=== PATIENT | male | born 1960 | race Two or more races ===

== ENCOUNTER 2017-09-15 22:36 | Inpatient (IN) | payer BC, OTHER ==
[2017-09-15] MEDS ORDERED: Sodium Chloride 0.9% 1,000 ML ONE (23:06)
[2017-09-15] MEDS ORDERED: Pantoprazole 40 MG Vial IVPUSH ONE (23:12)
[2017-09-15] MEDS ORDERED: Pantoprazole 80 MG in Sodium Chloride 0.9% 100 ML IV SCH (23:15)
[2017-09-15] MEDS ORDERED: Sodium Chloride 0.9% 1,000 ML IV ONE (23:16)
[2017-09-15] MEDS: Pantoprazole 80 MG in Sodium Chloride 0.9% 100 ML IV SCH (23:28)
--- NOTE | 2017-09-15 23:43 | EDM.PDOC ---
ED HPI GENERAL MEDICAL PROBLEM - General Chief Complaint: Abdominal Pain Stated Complaint: STOMACH PAIN URINATING BLOOD WEAK Time Seen by Provider: 09/15/17 22:44 Source of Information: Reports: Patient History Limitations: Reports: No Limitations - History of Present Illness INITIAL COMMENTS - FREE TEXT/NARRATIVE: This is a 56-year-old male. About 3 days ago he developed some upper abdominal pain and noted shortly thereafter he had some black looking stool. He's been having black stools several times a day since that time and today his stool looked more maroonish. He's been feeling very weak and very tired over the last few days and he finally comes to the ER this evening for evaluation. The pain is in the epigastric area of his abdomen. He has been trying some over-the- counter medications and Prilosec but that hasn't been helping. He has no history of ulcers. These never had an upper GI bleed in the past. He has had no recent illnesses no colds no cough no fever no chills. He denies using a lot of anti-inflammatories or aspirin. The patient states he has been nauseated but he has not vomited any blood. The patient has no history of peptic ulcer disease or esophageal varices. He does drink alcohol on a regular basis, usually some shots of vodka. He does take an arthritis medication of the type we do not know when he doesn't remember the name of the medication. - Related Data Allergies Allergy/AdvReac Type Severity Reaction Status Date / Time No Known Allergies Allergy Verified 01/12/17 11:15 Home Meds: Home Meds Omeprazole 1 tab PO DAILY 01/12/17 [History] Past Medical History Gastrointestinal History: Reports: GERD Genitourinary History: Reports: Renal Calculus Psychiatric History: Reports: Anxiety, Depression - Infectious Disease History Infectious Disease History: Reports: Shingles - Past Surgical History GI Surgical History: Reports: Hernia, Abdominal Social & Family History - Tobacco Use Smoking Status *Q: Current Every Day Smoker Years of Tobacco use: 25 Packs/Tins Daily: 0.3 - Caffeine Use Caffeine Use: Reports: Coffee - Recreational Drug Use Recreational Drug Type: Reports: Marijuana/Hashish Other Recreational Drug Type: quit 20 yrs ago ED ROS GENERAL - Review of Systems Review Of Systems: See Below Constitutional: Reports: Weakness, Fatigue. Denies: Fever, Chills HEENT: Reports: No Symptoms Respiratory: Reports: No Symptoms Cardiovascular: Reports: No Symptoms Endocrine: Reports: No Symptoms GI/Abdominal: Reports: Abdominal Pain, Black Stool, Bloody Stool, Nausea. Denies: Vomiting : Reports: No Symptoms Musculoskeletal: Reports: No Symptoms Skin: Reports: No Symptoms Neurological: Reports: No Symptoms Psychiatric: Reports: No Symptoms Hematologic/Lymphatic: Reports: No Symptoms ED EXAM, GI/ABD - Physical Exam Exam: See Below Exam Limited By: No Limitations General Appearance: Alert, WD/WN, No Apparent Distress, Other (Generally he appears to be extremely pale) Eyes: Bilateral: Pale Conjunctiva Ears: Normal External Exam Nose: Normal Inspection Throat/Mouth: Normal Inspection, Normal Oropharynx, Normal Voice, No Airway Compromise, Other (Patient appears to be extremely pale and very pale lips) Head: Normocephalic Neck: Supple Respiratory/Chest: No Respiratory Distress, Lungs Clear, Normal Breath Sounds Cardiovascular: Regular Rate, Rhythm, No Murmur, Tachycardia GI/Abdominal Exam: Soft, Other (Epigastric upper abdominal tenderness on palpation, no masses are noted and there is no lower abdominal tenderness noted , bowel sounds are quiet) Back Exam: Normal Inspection, Full Range of Motion Extremities: Normal Inspection, Normal Range of Motion, Pallor, Other ( Fingernails are extremely pale) Neurological: Alert, Oriented Psychiatric: Normal Affect, Normal Mood Skin Exam: Warm, Dry Course - Vital Signs Last Recorded V/S: Last Vital Signs Temp 98.7 F 09/16/17 00:40 Pulse 96 09/15/17 23:31 Resp 17 09/16/17 00:40 BP 96/51 L 09/16/17 00:40 Pulse Ox 98 09/16/17 00:40 - Orders/Labs/Meds Orders: Active Orders 24 hr Category Date Time Status RED BLOOD CELLS LP [BBK] Stat Lab 09/15/17 22:51 Results TYPE AND SCREEN [BBK] Stat Lab 09/15/17 22:51 Results Pantoprazole [ProTONIX IV] 80 mg Med 09/15/17 23:30 Active Sodium Chloride 0.9% [Normal Saline] 100 ml IV Q10H Sodium Chloride 0.9% [Normal Saline] 1,000 ml Med 09/15/17 23:45 Active IV ASDIRECTED Blood Transfusion Reflex Orders [OM.PC] Routine Oth 09/15/17 23:48 Ordered Peripheral IV Insertion Adult [OM.PC] Urgent Oth 09/15/17 23:48 Ordered Transfuse RBC [Transfuse Red Blood Cells] [COMM] Stat Ot 09/15/17 23:11 Ordered Transfuse Red Blood Cells [COMM] Stat Ot 09/15/17 23:48 Ordered Medication Orders Pantoprazole Sodium 80 mg/ (Sodium Chloride) 100 mls @ 10 mls/hr IV Q10H AMXIMILIANO Last Admin: 09/15/17 23:28 Dose: 10 mls/hr Sodium Chloride (Normal Saline) 1,000 mls @ 125 mls/hr IV ASDIRECTED MAXIMILIANO Last Infusion: 09/15/17 23:51 Dose: 999 mls/hr Admin: 09/15/17 23:50 Dose: 125 mls/hr Labs: Laboratory Tests 09/15/17 09/15/17 09/15/17 Range/Units 22:51 22:51 22:51 WBC 10.21 H (4.23-9.07) K/mm3 RBC 3.00 L (4.63-6.08) M/mm3 Hgb 7.6 L (13.7-17.5) gm/L Hct 24.8 L (40.1-51.0) % MCV 82.7 (79.0-92.2) fl MCH 25.3 L (25.7-32.2) pg MCHC 30.6 L (32.2-35.5) g/dl RDW Std Deviation 46.5 H (35.1-43.9) fL Plt Count 288 (163-337) K/mm3 MPV 10.6 (9.4-12.3) fl Neutrophils % (Manual) 79 H (40-60) % Band Neutrophils % 2 (0-10) % Lymphocytes % (Manual) 14 L (20-40) % Atypical Lymphs % 0 % Monocytes % (Manual) 3 (2-10) % Eosinophils % (Manual) 0 L (0.8-7.0) % Basophils % (Manual) 2 H (0.2-1.2) Platelet Estimate Adequate Plt Morphology Comment See note Polychromasia Few Hypochromasia 1+ slight Poikilocytosis 1+ slight Anisocytosis 1+ slight Ovalocytes Few RBC Morph Comment Not Reportable PT (9.5-12.1) SECONDS INR Sodium 138 (136-145) mEq/L Potassium 4.1 (3.5-5.1) mEq/L Chloride 104 (98-107) mEq/L Carbon Dioxide 20 L (21-32) mEq/L Anion Gap 18.1 H (5-15) BUN 28 H (7-18) mg/dL Creatinine 0.9 (0.7-1.3) mg/dL Est Cr Clr Drug Dosing 82.70 mL/min Estimated GFR (MDRD) > 60 (>60) mL/min BUN/Creatinine Ratio 31.1 H (14-18) Glucose 119 H (74-106) mg/dL Calcium 8.5 (8.5-10.1) mg/dL Total Bilirubin 0.7 (0.2-1.0) mg/dL AST 22 (15-37) U/L ALT 27 (16-63) U/L Alkaline Phosphatase 49 (46-116) U/L Total Protein 5.6 L (6.4-8.2) g/dl Albumin 2.8 L (3.4-5.0) g/dl Globulin 2.8 gm/dL Albumin/Globulin Ratio 1.0 (1-2) Blood Type O POSITIVE Gel Antibody Screen Negative Crossmatch See Detail 09/15/17 Range/Units 22:55 WBC (4.23-9.07) K/mm3 RBC (4.63-6.08) M/mm3 Hgb (13.7-17.5) gm/L Hct (40.1-51.0) % MCV (79.0-92.2) fl MCH (25.7-32.2) pg MCHC (32.2-35.5) g/dl RDW Std Deviation (35.1-43.9) fL Plt Count (163-337) K/mm3 MPV (9.4-12.3) fl Neutrophils % (Manual) (40-60) % Band Neutrophils % (0-10) % Lymphocytes % (Manual) (20-40) % Atypical Lymphs % % Monocytes % (Manual) (2-10) % Eosinophils % (Manual) (0.8-7.0) % Basophils % (Manual) (0.2-1.2) Platelet Estimate Plt Morphology Comment Polychromasia Hypochromasia Poikilocytosis Anisocytosis Ovalocytes RBC Morph Comment PT 10.9 (9.5-12.1) SECONDS INR 1.00 Sodium (136-145) mEq/L Potassium (3.5-5.1) mEq/L Chloride (98-107) mEq/L Carbon Dioxide (21-32) mEq/L Anion Gap (5-15) BUN (7-18) mg/dL Creatinine (0.7-1.3) mg/dL Est Cr Clr Drug Dosing mL/min Estimated GFR (MDRD) (>60) mL/min BUN/Creatinine Ratio (14-18) Glucose (74-106) mg/dL Calcium (8.5-10.1) mg/dL Total Bilirubin (0.2-1.0) mg/dL AST (15-37) U/L ALT (16-63) U/L Alkaline Phosphatase (46-116) U/L Total Protein (6.4-8.2) g/dl Albumin (3.4-5.0) g/dl Globulin gm/dL Albumin/Globulin Ratio (1-2) Blood Type Gel Antibody Screen Crossmatch Meds: Medications Generic Name Dose Route Start Last Admin Trade Name Freq PRN Reason Stop Dose Admin Pantoprazole Sodium 80 mg/ 100 mls @ 10 mls/hr 09/15/17 23:30 09/15/17 23:28 Sodium Chloride IV 10 mls/hr Q10H MAXIMILIANO Administration Sodium Chloride 1,000 mls @ 125 mls/hr 09/15/17 23:45 09/15/17 23:51 Normal Saline IV 999 mls/hr ASDIRECTED MAXIMILIANO Infusion Discontinued Medications Generic Name Dose Route Start Last Admin Trade Name Freq PRN Reason Stop Dose Admin Sodium Chloride Confirm 09/15/17 23:06 09/15/17 23:31 Normal Saline Administered 09/15/17 23:07 Not Given Dose 1,000 mls @ as directed .ROUTE .STK-MED ONE Pantoprazole Sodium 80 mg/ 100 mls @ 10 mls/hr 09/15/17 23:15 Sodium Chloride IV .Continuous MAXIMILIANO Sodium Chloride 1,000 mls @ 999 mls/hr 09/15/17 23:16 09/15/17 23:18 Normal Saline IV 09/16/17 00:16 999 mls/hr ONETIME ONE Administration Pantoprazole Sodium 40 mg 09/15/17 23:12 09/15/17 23:15 Protonix Iv IVPUSH 09/15/17 23:13 40 mg ONETIME ONE Administration - Re-Assessments/Exams Free Text/Narrative Re-Assessment/Exam: 09/16/17 00:02 I spoke to the patient about his upper GI bleed and his hemoglobin of 7.6. He' ll need to stay in the hospital until this resolves. His pulses come down from 107-89 with a fluids and his blood pressure is coming up slowly. I will make sure we don't bring the blood pressure up to high he starts bleeding again. I spoke to Dr. Alcantara regarding the patient and he is willing to follow the patient along in case the patient needs to be scoped as an upper endoscopy. I spoke to Dr. Simons he is willing to admit the patient in the hospital for further evaluation and treatment. 09/16/17 00:13 The patient is feeling slightly better. Looking at up to date it is not advisable to put an NG tube in him unless we believe he is continuing to bleed and then it is used for a diagnostic for the need of upper endoscopy. At this time is blood pressure is rising and his pulse is decreasing suggesting he is normalizing. His platelet count is 288. He did mention to me that he takes an arthritis medication but he isn't sure which one it is. 09/16/17 01:02 The patient is feeling better and we are transfusing the blood at this time. He did receive about a liter of fluids before we started transfusing the blood. 09/16/17 01:45 Patient was admitted to [facility] as per Dr. Simons, bridge orders were written by myself. Departure - Departure Time of Disposition: 01:03 Disposition: Admitted As Inpatient 66 Condition: Fair Clinical Impression: Upper GI bleeding, Nausea, Hypotension due to blood loss, Tachycardia, Severe anemia - Discharge Information ED Communication - ED Communication Date/Time Date: 09/16/17 Time Called: 01:04 - Discussed Case With (1) Discussed Case With (1): Admitting Provider Person/s Notified (1): Paul Simons (He will admit for further evaluation and treatment) Person/s Notified (2): Jesus Alcantara (He will consult) - My Orders Last 24 Hours: My Active Orders 09/15/17 22:51 RED BLOOD CELLS LP [BBK] Stat TYPE AND SCREEN [BBK] Stat 09/15/17 23:11 Transfuse RBC [Transfuse Red Blood Cells] [COMM] Stat 09/15/17 23:30 Pantoprazole [ProTONIX IV] 80 mg Sodium Chloride 0.9% [Normal Saline] 100 ml IV Q10H 09/15/17 23:45 Sodium Chloride 0.9% [Normal Saline] 1,000 ml IV ASDIRECTED 09/15/17 23:48 Blood Transfusion Reflex Orders [OM.PC] Routine Peripheral IV Insertion Adult [OM.PC] Urgent Transfuse Red Blood Cells [COMM] Stat - Assessment/Plan Last 24 Hours: My Active Orders 09/15/17 22:51 RED BLOOD CELLS LP [BBK] Stat TYPE AND SCREEN [BBK] Stat 09/15/17 23:11 Transfuse RBC [Transfuse Red Blood Cells] [COMM] Stat 09/15/17 23:30 Pantoprazole [ProTONIX IV] 80 mg Sodium Chloride 0.9% [Normal Saline] 100 ml IV Q10H 09/15/17 23:45 Sodium Chloride 0.9% [Normal Saline] 1,000 ml IV ASDIRECTED 09/15/17 23:48 Blood Transfusion Reflex Orders [OM.PC] Routine Peripheral IV Insertion Adult [OM.PC] Urgent Transfuse Red Blood Cells [COMM] Stat
[2017-09-15] MEDS ORDERED: Sodium Chloride 0.9% 1,000 ML IV SCH (23:45)
[2017-09-16] MEDS ORDERED: Sodium Chloride 0.9% 1,000 ML IV SCH (05:00)
[2017-09-16] MEDS ORDERED: Metoprolol Tartrate 5 MG/5 ML SDV IVPUSH PRN (06:48)
[2017-09-16] MEDS ORDERED: LORazepam 2 MG/ML SDV IVPUSH PRN (06:48)
[2017-09-16] MEDS ORDERED: hydrALAZINE 20 MG/ML SDV IVPUSH PRN (06:48)
[2017-09-16] MEDS ORDERED: Temazepam 15 MG Cap PO PRN (06:53)
[2017-09-16] MEDS ORDERED: Ondansetron 4 MG/2 ML SDV IV PRN (06:53)
[2017-09-16] MEDS ORDERED: Acetaminophen 325 MG Tab PO PRN (06:53)
[2017-09-16] MEDS ORDERED: Acetaminophen/HYDROcodone 325-5 MG Tab PO PRN (06:53)
[2017-09-16] MEDS ORDERED: LORazepam 2 MG/ML SDV IV PRN (06:53)
[2017-09-16] MEDS ORDERED: Promethazine 12.5 MG in Sodium Chloride 0.9% 50 ML IV PRN (06:53)
[2017-09-16] MEDS ORDERED: Albuterol/Ipratropium 3.0-0.5 MG/3 ML Neb Soln NEB PRN (06:53)
--- NOTE | 2017-09-16 07:02 | PCM.HP ---
H&P History of Present Illness - General Date of Service: 09/16/17 Admit Problem/Dx: Admission Diagnosis/Problem Admission Diagnosis/Problem Gastrointestinal hemorrhage Source of Information: Patient, Family, Provider, RN Notes Reviewed History Limitations: Reports: No Limitations - History of Present Illness Initial Comments - Free Text/Narative: This is a 56 yo male with past medical hx/o GERD, Anxiety, and Depression who comes in for evaluation of 3 day hx/o upper abdominal pain associated with dark- maroon colored stool. He feels weak and very tired over the past few days. He denies family hx/o colorectal cancer. His last EGD was about 4-5 years ago. Patient carries a hx/o gastric ulcer on PPI. He denies being on ASA or any blood thinners. However he admits to taking Advil 3-4 times a day for generalized aches and pain. He also drinks alcohol on a regular basis. His initial work up in ED shows a CBC remarkable for WBC of 10.21, RBC of 3, Hgb of 7.6, Hct of 24.8, MCH of 25.3, MCHC of 30.6, RDW of 46, neutrophils of 79 %, Lymphocytes of 14% and basophils of 2%. His chemistry is remarkable for CO2 of 20, AG of 18.1, BUN of 28, glucose of 119, total protein of 5.6 and albumin of 2.8. 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 He is full code. - Related Data Allergies/Adverse Reactions: Allergies Allergy/AdvReac Type Severity Reaction Status Date / Time No Known Allergies Allergy Verified 09/16/17 03:19 Home Medications: Home Meds Nicotine [Nicotine Patch] 1 patch TD DAILY #30 patch.[id number] 09/17/17 [Rx] Omeprazole 40 mg PO DAILY #56 cap.sr 09/17/17 [Rx] Sucralfate [Carafate] 1 gm PO QID #224 tablet 09/17/17 [Rx] Past Medical History HEENT History: Reports: Impaired Vision, Other (See Below) Other HEENT History: pt states that he wears glasses for reading. Gastrointestinal History: Reports: GERD Genitourinary History: Reports: Renal Calculus Psychiatric History: Reports: Anxiety, Depression Endocrine/Metabolic History: Reports: Obesity/BMI 30+ Hematologic History: Reports: Blood Transfusion(s), Other (See Below) Other Hematologic History: pt currently admitted for gi bleed with a hgb of 7.6 and is receiving 2 units of blood. - Infectious Disease History Infectious Disease History: Reports: Shingles - Past Surgical History GI Surgical History: Reports: Hernia, Abdominal Social & Family History - Family History Family Medical History: Noncontributory - Tobacco Use Smoking Status *Q: Current Every Day Smoker Years of Tobacco use: 25 Packs/Tins Daily: 0.3 Used Tobacco, but Quit: No Second Hand Smoke Exposure: No - Caffeine Use Caffeine Use: Reports: Coffee - Alcohol Use Days Per Week of Alcohol Use: 2 Number of Drinks Per Day: 3 Total Drinks Per Week: 6 - Recreational Drug Use Recreational Drug Use: No Recreational Drug Type: Reports: Marijuana/Hashish Other Recreational Drug Type: quit 20 yrs ago H&P Review of Systems - Review of Systems: Review Of Systems: See Below General: Reports: Weakness, Fatigue. Denies: Fever, Chills, Malaise HEENT: Reports: No Symptoms Pulmonary: Denies: Shortness of Breath Cardiovascular: Denies: Chest Pain, Palpitations, Dyspnea on Exertion, Orthopnea , Lightheadedness, Syncope, Blood Pressure Problem Gastrointestinal: Reports: Abdominal Pain, Bloody Stool, Vomiting. Denies: Nausea Genitourinary: Reports: No Symptoms Musculoskeletal: Reports: No Symptoms Skin: Denies: Cyanosis, Jaundice, Mottled, Pallor, Diaphoresis Psychiatric: Denies: Confusion, Depression, Anxiety, Hallucinations Neurological: Reports: Headache, Weakness. Denies: Dizziness, Syncope, Difficulty Walking Hematologic/Lymphatic: Reports: No Symptoms Immunologic: Reports: No Symptoms Exam - Exam Exam: See Below - Vital Signs Vital Signs: Last Vital Signs Temp 36.7 C 09/16/17 05:21 Pulse 85 09/16/17 05:21 Resp 18 09/16/17 05:21 BP 107/59 L 09/16/17 05:21 Pulse Ox 97 09/16/17 05:21 Weight: 86.273 kg - Exam General: Alert, Oriented, Cooperative. No: Mild Distress HEENT: Conjunctiva Clear, EACs Clear, EOMI, Hearing Intact, Mucosa Moist & [place] , Nares Patent, Normal Nasal Septum, Posterior Pharynx Clear, Pupils Equal, Pupils Reactive Neck: Supple, Trachea Midline, +2 Carotid Pulse wo Bruit, Full Range of Motion Lungs: Clear to Auscultation, Normal Respiratory Effort Cardiovascular: Regular Rate, Regular Rhythm GI/Abdominal Exam: Normal Bowel Sounds, Soft, No Organomegaly, No Distention, No Abnormal Bruit, Tender. No: Guarding, Rigid, Rebound, Hepatomegaly, Splenomegaly (Male) Exam: Deferred Rectal (Males) Exam: Deferred Back Exam: Normal Inspection, Decreased Range of Motion Extremities: Normal Inspection, Normal Range of Motion, Non-Tender, No Pedal Edema, Normal Capillary Refill Peripheral Pulses: 3+: Posterior Tibial (L), Posterior Tibial (R), Dorsalis Pedis (L), Dorsalis Pedis (R) Skin: Warm, Dry, Intact Neuro Extensive - Mental Status: Oriented x3, Normal Cognition, Memory Intact Neuro Extensive - Motor, Sensory, Reflexes: CN II-XII Intact, Normal Gait Psychiatric: Alert, Normal Affect. No: Normal Mood - Patient Data Lab Results Last 24 hrs: Laboratory Results - last 24 hr 09/15/17 09/15/17 09/15/17 Range/Units 22:51 22:51 22:51 WBC 10.21 H (4.23-9.07) K/mm3 RBC 3.00 L (4.63-6.08) M/mm3 Hgb 7.6 L (13.7-17.5) gm/L Hct 24.8 L (40.1-51.0) % MCV 82.7 (79.0-92.2) fl MCH 25.3 L (25.7-32.2) pg MCHC 30.6 L (32.2-35.5) g/dl RDW Std Deviation 46.5 H (35.1-43.9) fL Plt Count 288 (163-337) K/mm3 MPV 10.6 (9.4-12.3) fl Neut % (Auto) (34.0-67.9) % Lymph % (Auto) (21.8-53.1) % Yates % (Auto) (5.3-12.2) % Eos % (Auto) (0.8-7.0) Baso % (Auto) (0.1-1.2) % Neut # (Auto) (1.78-5.38) K/mm3 Lymph # (Auto) (1.32-3.57) K/mm3 Yates # (Auto) (0.30-0.82) K/mm3 Eos # (Auto) (0.04-0.54) K/mm3 Baso # (Auto) (0.01-0.08) K/mm3 Neutrophils % (Manual) 79 H (40-60) % Band Neutrophils % 2 (0-10) % Lymphocytes % (Manual) 14 L (20-40) % Atypical Lymphs % 0 % Monocytes % (Manual) 3 (2-10) % Eosinophils % (Manual) 0 L (0.8-7.0) % Basophils % (Manual) 2 H (0.2-1.2) Platelet Estimate Adequate Plt Morphology Comment See note Polychromasia Few Hypochromasia 1+ slight Poikilocytosis 1+ slight Anisocytosis 1+ slight Ovalocytes Few RBC Morph Comment Not Reportable PT (9.5-12.1) SECONDS INR Sodium 138 (136-145) mEq/L Potassium 4.1 (3.5-5.1) mEq/L Chloride 104 (98-107) mEq/L Carbon Dioxide 20 L (21-32) mEq/L Anion Gap 18.1 H (5-15) BUN 28 H (7-18) mg/dL Creatinine 0.9 (0.7-1.3) mg/dL Est Cr Clr Drug Dosing 82.70 mL/min Estimated GFR (MDRD) > 60 (>60) mL/min BUN/Creatinine Ratio 31.1 H (14-18) Glucose 119 H (74-106) mg/dL Calcium 8.5 (8.5-10.1) mg/dL Total Bilirubin 0.7 (0.2-1.0) mg/dL AST 22 (15-37) U/L ALT 27 (16-63) U/L Alkaline Phosphatase 49 (46-116) U/L Total Protein 5.6 L (6.4-8.2) g/dl Albumin 2.8 L (3.4-5.0) g/dl Globulin 2.8 gm/dL Albumin/Globulin Ratio 1.0 (1-2) Blood Type O POSITIVE Gel Antibody Screen Negative Crossmatch See Detail 09/15/17 09/16/17 Range/Units 22:55 06:20 WBC 6.53 (4.23-9.07) K/mm3 RBC 3.30 L (4.63-6.08) M/mm3 Hgb 8.7 L (13.7-17.5) gm/L Hct 27.4 L (40.1-51.0) % MCV 83.0 (79.0-92.2) fl MCH 26.4 (25.7-32.2) pg MCHC 31.8 L (32.2-35.5) g/dl RDW Std Deviation 46.3 H (35.1-43.9) fL Plt Count 199 (163-337) K/mm3 MPV 10.4 (9.4-12.3) fl Neut % (Auto) 70.9 H (34.0-67.9) % Lymph % (Auto) 18.5 L (21.8-53.1) % Yates % (Auto) 9.0 (5.3-12.2) % Eos % (Auto) 0.8 (0.8-7.0) Baso % (Auto) 0.5 (0.1-1.2) % Neut # (Auto) 4.63 (1.78-5.38) K/mm3 Lymph # (Auto) 1.21 L (1.32-3.57) K/mm3 Yates # (Auto) 0.59 (0.30-0.82) K/mm3 Eos # (Auto) 0.05 (0.04-0.54) K/mm3 Baso # (Auto) 0.03 (0.01-0.08) K/mm3 Neutrophils % (Manual) (40-60) % Band Neutrophils % (0-10) % Lymphocytes % (Manual) (20-40) % Atypical Lymphs % % Monocytes % (Manual) (2-10) % Eosinophils % (Manual) (0.8-7.0) % Basophils % (Manual) (0.2-1.2) Platelet Estimate Plt Morphology Comment Polychromasia Hypochromasia Poikilocytosis Anisocytosis Ovalocytes RBC Morph Comment PT 10.9 (9.5-12.1) SECONDS INR 1.00 Sodium (136-145) mEq/L Potassium (3.5-5.1) mEq/L Chloride (98-107) mEq/L Carbon Dioxide (21-32) mEq/L Anion Gap (5-15) BUN (7-18) mg/dL Creatinine (0.7-1.3) mg/dL Est Cr Clr Drug Dosing mL/min Estimated GFR (MDRD) (>60) mL/min BUN/Creatinine Ratio (14-18) Glucose (74-106) mg/dL Calcium (8.5-10.1) mg/dL Total Bilirubin (0.2-1.0) mg/dL AST (15-37) U/L ALT (16-63) U/L Alkaline Phosphatase (46-116) U/L Total Protein (6.4-8.2) g/dl Albumin (3.4-5.0) g/dl Globulin gm/dL Albumin/Globulin Ratio (1-2) Blood Type Gel Antibody Screen Crossmatch Result Diagrams: 09/17/17 05:32 09/16/17 06:20 Problem List Initiated/Reviewed/Updated: Yes Orders Last 24hrs: Active Orders 24 hr Category Date Time Status Admission Status [Patient Status] [ADT] Routine ADT 09/16/17 00:42 Active Height and Weight [RC] DAILY Care 09/16/17 06:53 Active Intake and Output [RC] QSHIFT Care 09/16/17 06:53 Active Notify Provider Consults [RC] ASDIRECTED Care 09/16/17 06:52 Active Oxygen Therapy [RC] PRN Care 09/16/17 06:53 Active Pulse Oximetry [RC] PRN Care 09/16/17 06:53 Active RT Aerosol Therapy [RC] ASDIRECTED Care 09/16/17 06:55 Active Up With Assistance [RC] ASDIRECTED Care 09/16/17 01:59 Active VTE/DVT Education [RC] PER UNIT ROUTINE Care 09/16/17 06:53 Active Vital Signs [RC] Q4H Care 09/16/17 06:53 Active Consult to Physician [CONS] Routine Cons 09/16/17 06:52 Active NPO Now [Nothing per Oral Now Diet] [DIET] Diet 09/16/17 Breakfast Active BASIC METABOLIC PANEL,BMP [CHEM] Routine Lab 09/16/17 06:20 Received CBC WITH AUTO DIFF [HEME] AM Lab 09/17/17 05:11 Ordered H.PYLORI ANTIGEN, STOOL [OP] Stat Lab 09/16/17 06:56 Ordered MAGNESIUM [CHEM] AM Lab 09/17/17 05:11 Ordered Acetaminophen [Tylenol] Med 09/16/17 06:53 Active 650 mg PO Q4H PRN Acetaminophen/HYDROcodone [Bradford 325-5 MG] Med 09/16/17 06:53 Active 1 tab PO Q4H PRN Albuterol/Ipratropium [DuoNeb 3.0-0.5 MG/3 ML] Med 09/16/17 06:53 Active 3 ml NEB Q4H PRN LORazepam [Ativan] Med 09/16/17 06:53 Active 1 mg IV Q6H PRN LORazepam [Ativan] Med 09/16/17 06:48 Active 2 mg IVPUSH Q4H PRN Magnesium Rep Pharmacy to Dose [Pharmacy to Dose - Med 09/16/17 07:00 Pending Magnesium Replacement] 1 dose .XX ASDIRECTED Metoprolol Tartrate [Lopressor] Med 09/16/17 06:48 Active 5 mg IVPUSH Q4H PRN Ondansetron [Zofran] Med 09/16/17 06:53 Ordered 4 mg IV Q6H PRN Pantoprazole [ProTONIX IV] 80 mg Med 09/15/17 23:30 Active Sodium Chloride 0.9% [Normal Saline] 100 ml IV Q10H Potassium Rep Pharmacy to Dose [Pharmacy to Dose - Med 09/16/17 07:00 Pending Potassium Replacement] 1 dose .XX ASDIRECTED Promethazine [Phenergan] 12.5 mg Med 09/16/17 06:53 Ordered Sodium Chloride 0.9% [Normal Saline] 50 ml IV Q6H Sodium Chloride 0.9% [Normal Saline] 1,000 ml Med 09/16/17 05:00 Active IV ASDIRECTED Temazepam [Restoril] Med 09/16/17 06:53 Ordered 15 mg PO BEDTIME PRN hydrALAZINE [Apresoline] Med 09/16/17 06:48 Active 20 mg IVPUSH Q4H PRN Blood Transfusion Reflex Orders [OM.PC] Routine Oth 09/15/17 23:48 Ordered Peripheral IV Insertion Adult [OM.PC] Urgent Oth 09/15/17 23:48 Ordered Sequential Compression Device [OM.PC] Per Unit Routine Oth 09/16/17 06:54 Ordered Transfuse RBC [Transfuse Red Blood Cells] [COMM] Stat Oth 09/15/17 23:11 Ordered Transfuse Red Blood Cells [COMM] Stat Ot 09/15/17 23:48 Ordered Code Status [Resuscitation Status] Routine Resus Stat 09/16/17 01:57 Ordered Medication Orders Acetaminophen (Tylenol) 650 mg PO Q4H PRN PRN Reason: Pain (Mild 1-3)/fever Hydrocodone Bitart/Acetaminophen (Bradford 325-5 Mg) 1 tab PO Q4H PRN PRN Reason: Pain (moderate 4-6) Albuterol/Ipratropium (Duoneb 3.0-0.5 Mg/3 Ml) 3 ml NEB Q4H PRN PRN Reason: Shortness Of Breath/wheezing Hydralazine HCl (Apresoline) 20 mg IVPUSH Q4H PRN PRN Reason: Hypertension Pantoprazole Sodium 80 mg/ (Sodium Chloride) 100 mls @ 10 mls/hr IV Q10H [facility] Last Admin: 09/15/17 23:28 Dose: 10 mls/hr Sodium Chloride (Normal Saline) 1,000 mls @ 250 mls/hr IV ASDIRECTED [facility] Last Admin: 09/16/17 05:31 Dose: 100 mls/hr Promethazine HCl 12.5 mg/ (Sodium Chloride) 50.5 mls @ 100 mls/hr IV Q6H PRN PRN Reason: Nausea/Vomiting Lorazepam (Ativan) 2 mg IVPUSH Q4H PRN PRN Reason: Seizures Lorazepam (Ativan) 1 mg IV Q6H PRN PRN Reason: Anxiety Magnesium Sulfate (Pharmacy To Dose - Magnesium Replacement) 1 dose .XX ASDIRECTED [facility] Metoprolol Tartrate (Lopressor) 5 mg IVPUSH Q4H PRN PRN Reason: Tachycardia Ondansetron HCl (Zofran) 4 mg IV Q6H PRN PRN Reason: Nausea/Vomiting Potassium Chloride (Pharmacy To Dose - Potassium Replacement) 1 dose .XX ASDIRECTED [facility] Temazepam (Restoril) 15 mg PO BEDTIME PRN PRN Reason: Sleep Assessment/Plan Comment:: Assessment/Plan: Acute: GI Bleed - Likely 2/2 PUD - Carries a hx/o Gastric Ulcer - Risk factors: NSAID and ETOH Use - PPI drip and IVF - S/p 2 units of PRBC transfusion - Hgb 7.6--> now 8.7; will repeat H/H later today - Dr. Alcantara consult Hypotention - 2/2 Volume loss for GI Bleed - Aggressive Volume resuscitation Chronic: GERD Anxiety Depression Plan: Admit to [facility] Routine AM Labs Resume Home Medication Adequate IV Hydration Carafate 1 gram QID Monitor H/H and hemodynamic status Full liquid and then NPO midnight Dr. Alcantara consult for possible EGD Code status: 1
[2017-09-16] MEDS ORDERED: Sodium Chloride 0.9% 1,000 ML IV ONE (07:08)
[2017-09-16] MEDS: Sodium Chloride 0.9% 1,000 ML IV SCH ×4 (08:58→22:17)
--- NOTE | 2017-09-16 09:30 | PCM.CONS ---
H&P History of Present Illness - General Date of Service: 09/16/17 Admit Problem/Dx: Admission Diagnosis/Problem Admission Diagnosis/Problem Gastrointestinal hemorrhage Source of Information: Patient - History of Present Illness Initial Comments - Free Text/Narative: 56-year-old male is 4 years status post an open anti-reflux procedure for refractory gastroesophageal reflux complicated by gastric ulcers. Postoperatively he has chronic gas bloat syndrome with him fully realizing that he can not vomit or belch. Clinically this manifests as abdominal distention which he knows will be relieved by the passage of flatus per rectum. This has been reassuring. About a year ago he underwent a follow-up upper endoscopy by his surgeon and at that time he was found to have gastric ulcers which were smaller than the ones that were previously diagnosed before his operation. He was placed on about 8 weeks of medical management and was asked to follow-up but didn't. He was stable until 4 days ago when he began to experience lightheadedness fatigue weakness palpitations mild shortness of breath, presyncopal symptoms, and occipital headaches. This was associated with increasing epigastric abdominal discomfort. He also noticed that his stool was changing from brown to black. Yesterday during a bowel he had a significant passage of red blood. Because of this he presented to the emergency room and was found to have a hemoglobin of 7. He was admitted for observation and medical management of his acutely symptomatic anemia. He denied dysphagia and recurrent GERD symptoms. He also denied weight loss. His appetite has been fine. His family history is negative for colorectal cancer and polyps. He's never had a colonoscopy. - Related Data Allergies/Adverse Reactions: Allergies Allergy/AdvReac Type Severity Reaction Status Date / Time No Known Allergies Allergy Verified 09/16/17 03:19 Home Medications: Home Meds Omeprazole 1 tab PO DAILY 01/12/17 [History] Past Medical History HEENT History: Reports: Impaired Vision, Other (See Below) Other HEENT History: pt states that he wears glasses for reading. Gastrointestinal History: Reports: GERD Genitourinary History: Reports: Renal Calculus Psychiatric History: Reports: Anxiety, Depression Endocrine/Metabolic History: Reports: Obesity/BMI 30+ Hematologic History: Reports: Blood Transfusion(s), Other (See Below) Other Hematologic History: pt currently admitted for gi bleed with a hgb of 7.6 and is receiving 2 units of blood. - Infectious Disease History Infectious Disease History: Reports: Shingles - Past Surgical History GI Surgical History: Reports: Hernia, Abdominal Social & Family History - Family History Family Medical History: Noncontributory - Tobacco Use Smoking Status *Q: Current Every Day Smoker Years of Tobacco use: 25 Packs/Tins Daily: 0.3 Used Tobacco, but Quit: No Second Hand Smoke Exposure: No - Caffeine Use Caffeine Use: Reports: Coffee - Alcohol Use Days Per Week of Alcohol Use: 2 Number of Drinks Per Day: 3 Total Drinks Per Week: 6 - Recreational Drug Use Recreational Drug Use: No Recreational Drug Type: Reports: Marijuana/Hashish Other Recreational Drug Type: quit 20 yrs ago H&P Review of Systems - Review of Systems: Review Of Systems: ROS reveals no pertinent complaints other than HPI. Exam - Exam Exam: See Below - Vital Signs Vital Signs: Last Vital Signs Temp 37.0 C 09/16/17 08:14 Pulse 82 09/16/17 08:14 Resp 14 09/16/17 08:14 BP 108/65 09/16/17 08:14 Pulse Ox 95 09/16/17 08:14 Weight: 86.273 kg - Exam Quality Assessment: Supplemental Oxygen General: Alert, Oriented, Cooperative HEENT: EOMI, Hearing Intact Neck: Supple, Trachea Midline Lungs: Normal Respiratory Effort, Rhonchi, Wheezing Cardiovascular: Regular Rate, Regular Rhythm, Normal S1, Normal S2 GI/Abdominal Exam: Tender (Mild tenderness in the epigastrium to deep palpation , small lipoma located within the left upper quadrant about 2 cm in diameter), Other (Well-healed midline upper abdominal incision with no incisional hernias appreciated) (Male) Exam: Deferred Rectal (Males) Exam: Deferred Extremities: Non-Tender Skin: Warm, Dry, Intact Neuro Extensive - Mental Status: Alert, Oriented x3, Normal Mood/Affect, Normal Cognition, Memory Intact Psychiatric: Alert, Normal Affect, Normal Mood - Patient Data Lab Results Last 24 hrs: Laboratory Results - last 24 hr 09/15/17 09/15/17 09/15/17 Range/Units 22:51 22:51 22:51 WBC 10.21 H (4.23-9.07) K/mm3 RBC 3.00 L (4.63-6.08) M/mm3 Hgb 7.6 L (13.7-17.5) gm/L Hct 24.8 L (40.1-51.0) % MCV 82.7 (79.0-92.2) fl MCH 25.3 L (25.7-32.2) pg MCHC 30.6 L (32.2-35.5) g/dl RDW Std Deviation 46.5 H (35.1-43.9) fL Plt Count 288 (163-337) K/mm3 MPV 10.6 (9.4-12.3) fl Neut % (Auto) (34.0-67.9) % Lymph % (Auto) (21.8-53.1) % [place] % (Auto) (5.3-12.2) % Eos % (Auto) (0.8-7.0) Baso % (Auto) (0.1-1.2) % Neut # (Auto) (1.78-5.38) K/mm3 Lymph # (Auto) (1.32-3.57) K/mm3 [place] # (Auto) (0.30-0.82) K/mm3 Eos # (Auto) (0.04-0.54) K/mm3 Baso # (Auto) (0.01-0.08) K/mm3 Neutrophils % (Manual) 79 H (40-60) % Band Neutrophils % 2 (0-10) % Lymphocytes % (Manual) 14 L (20-40) % Atypical Lymphs % 0 % Monocytes % (Manual) 3 (2-10) % Eosinophils % (Manual) 0 L (0.8-7.0) % Basophils % (Manual) 2 H (0.2-1.2) Platelet Estimate Adequate Plt Morphology Comment See note Polychromasia Few Hypochromasia 1+ slight Poikilocytosis 1+ slight Anisocytosis 1+ slight Ovalocytes Few RBC Morph Comment Not Reportable PT (9.5-12.1) SECONDS INR Sodium 138 (136-145) mEq/L Potassium 4.1 (3.5-5.1) mEq/L Chloride 104 (98-107) mEq/L Carbon Dioxide 20 L (21-32) mEq/L Anion Gap 18.1 H (5-15) BUN 28 H (7-18) mg/dL Creatinine 0.9 (0.7-1.3) mg/dL Est Cr Clr Drug Dosing 82.70 mL/min Estimated GFR (MDRD) > 60 (>60) mL/min BUN/Creatinine Ratio 31.1 H (14-18) Glucose 119 H (74-106) mg/dL Calcium 8.5 (8.5-10.1) mg/dL Iron (65-175) ug/dL TIBC (100-400) ug/dL % Saturation (20-55) % Transferrin (202-364) mg/dL Total Bilirubin 0.7 (0.2-1.0) mg/dL AST 22 (15-37) U/L ALT 27 (16-63) U/L Alkaline Phosphatase 49 (46-116) U/L Total Protein 5.6 L (6.4-8.2) g/dl Albumin 2.8 L (3.4-5.0) g/dl Globulin 2.8 gm/dL Albumin/Globulin Ratio 1.0 (1-2) Blood Type O POSITIVE Gel Antibody Screen Negative Crossmatch See Detail 09/15/17 09/16/17 09/16/17 Range/Units 22:55 06:20 06:20 WBC 6.53 (4.23-9.07) K/mm3 RBC 3.30 L (4.63-6.08) M/mm3 Hgb 8.7 L (13.7-17.5) gm/L Hct 27.4 L (40.1-51.0) % MCV 83.0 (79.0-92.2) fl MCH 26.4 (25.7-32.2) pg MCHC 31.8 L (32.2-35.5) g/dl RDW Std Deviation 46.3 H (35.1-43.9) fL Plt Count 199 (163-337) K/mm3 MPV 10.4 (9.4-12.3) fl Neut % (Auto) 70.9 H (34.0-67.9) % Lymph % (Auto) 18.5 L (21.8-53.1) % [place] % (Auto) 9.0 (5.3-12.2) % Eos % (Auto) 0.8 (0.8-7.0) Baso % (Auto) 0.5 (0.1-1.2) % Neut # (Auto) 4.63 (1.78-5.38) K/mm3 Lymph # (Auto) 1.21 L (1.32-3.57) K/mm3 [place] # (Auto) 0.59 (0.30-0.82) K/mm3 Eos # (Auto) 0.05 (0.04-0.54) K/mm3 Baso # (Auto) 0.03 (0.01-0.08) K/mm3 Neutrophils % (Manual) (40-60) % Band Neutrophils % (0-10) % Lymphocytes % (Manual) (20-40) % Atypical Lymphs % % Monocytes % (Manual) (2-10) % Eosinophils % (Manual) (0.8-7.0) % Basophils % (Manual) (0.2-1.2) Platelet Estimate Plt Morphology Comment Polychromasia Hypochromasia Poikilocytosis Anisocytosis Ovalocytes RBC Morph Comment PT 10.9 (9.5-12.1) SECONDS INR 1.00 Sodium 140 (136-145) mEq/L Potassium 4.2 (3.5-5.1) mEq/L Chloride 108 H (98-107) mEq/L Carbon Dioxide 24 (21-32) mEq/L Anion Gap 12.2 (5-15) BUN 26 H (7-18) mg/dL Creatinine 0.7 (0.7-1.3) mg/dL Est Cr Clr Drug Dosing 106.33 mL/min Estimated GFR (MDRD) > 60 (>60) mL/min BUN/Creatinine Ratio 37.1 H (14-18) Glucose 99 (74-106) mg/dL Calcium 8.0 L (8.5-10.1) mg/dL Iron (65-175) ug/dL TIBC (100-400) ug/dL % Saturation (20-55) % Transferrin (202-364) mg/dL Total Bilirubin (0.2-1.0) mg/dL AST (15-37) U/L ALT (16-63) U/L Alkaline Phosphatase (46-116) U/L Total Protein (6.4-8.2) g/dl Albumin (3.4-5.0) g/dl Globulin gm/dL Albumin/Globulin Ratio (1-2) Blood Type Gel Antibody Screen Crossmatch 09/16/17 Range/Units 06:20 WBC (4.23-9.07) K/mm3 RBC (4.63-6.08) M/mm3 Hgb (13.7-17.5) gm/L Hct (40.1-51.0) % MCV (79.0-92.2) fl MCH (25.7-32.2) pg MCHC (32.2-35.5) g/dl RDW Std Deviation (35.1-43.9) fL Plt Count (163-337) K/mm3 MPV (9.4-12.3) fl Neut % (Auto) (34.0-67.9) % Lymph % (Auto) (21.8-53.1) % [place] % (Auto) (5.3-12.2) % Eos % (Auto) (0.8-7.0) Baso % (Auto) (0.1-1.2) % Neut # (Auto) (1.78-5.38) K/mm3 Lymph # (Auto) (1.32-3.57) K/mm3 [place] # (Auto) (0.30-0.82) K/mm3 Eos # (Auto) (0.04-0.54) K/mm3 Baso # (Auto) (0.01-0.08) K/mm3 Neutrophils % (Manual) (40-60) % Band Neutrophils % (0-10) % Lymphocytes % (Manual) (20-40) % Atypical Lymphs % % Monocytes % (Manual) (2-10) % Eosinophils % (Manual) (0.8-7.0) % Basophils % (Manual) (0.2-1.2) Platelet Estimate Plt Morphology Comment Polychromasia Hypochromasia Poikilocytosis Anisocytosis Ovalocytes RBC Morph Comment PT (9.5-12.1) SECONDS INR Sodium (136-145) mEq/L Potassium (3.5-5.1) mEq/L Chloride (98-107) mEq/L Carbon Dioxide (21-32) mEq/L Anion Gap (5-15) BUN (7-18) mg/dL Creatinine (0.7-1.3) mg/dL Est Cr Clr Drug Dosing mL/min Estimated GFR (MDRD) (>60) mL/min BUN/Creatinine Ratio (14-18) Glucose (74-106) mg/dL Calcium (8.5-10.1) mg/dL Iron 307 H (65-175) ug/dL TIBC 300 (100-400) ug/dL % Saturation 102 H (20-55) % Transferrin 240 (202-364) mg/dL Total Bilirubin (0.2-1.0) mg/dL AST (15-37) U/L ALT (16-63) U/L Alkaline Phosphatase (46-116) U/L Total Protein (6.4-8.2) g/dl Albumin (3.4-5.0) g/dl Globulin gm/dL Albumin/Globulin Ratio (1-2) Blood Type Gel Antibody Screen Crossmatch Result Diagrams: 09/16/17 06:20 09/16/17 06:20 Consult PN Assessment/Plan Procedures: Procedures ANTINUCLEAR ANTIBODIES (01/10/17) ASSAY OF FERRITIN (01/10/17) ASSAY OF IRON (02/21/17) ASSAY OF TRANSFERRIN (01/10/17) BLOOD TYPING SEROLOGIC ABO (01/12/17) BLOOD TYPING SEROLOGIC RH(D) (01/12/17) C-REACTIVE PROTEIN (01/10/17) CCP ANTIBODY (01/10/17) COMPATIBILITY TEST ANTIGLOB (01/12/17) COMPLETE CBC AUTOMATED (02/21/17) COMPLETE CBC W/AUTO DIFF WBC (02/02/17) COMPREHEN METABOLIC PANEL (01/10/17) HELICOBACTER PYLORI ANTIBODY (01/10/17) MRI LUMBAR SPINE W/O DYE (12/20/16) RBC ANTIBODY SCREEN (01/12/17) RBC SED RATE AUTOMATED (01/10/17) RHEUMATOID FACTOR TEST QUAL (01/10/17) ROUTINE VENIPUNCTURE (02/21/17) X-RAY BEND ONLY L-S SPINE (02/21/17) X-RAY EXAM OF FINGER(S) (02/21/17) X-RAY EXAM OF FOREARM (07/02/17) X-RAY EXAM OF KNEE 3 (08/28/13) X-RAY EXAM OF PELVIS (02/21/17) X-RAY EXAM OF WRIST (05/25/17) (1) Severe anemia SNOMED Code(s): 225053429 Code(s): D64.9 - ANEMIA, UNSPECIFIED Priority: High Current Visit: Yes Assessment:: Etiology is unclear but may be related to peptic change. His gas bloat syndrome is relatively stable and frequently this is managed by dilatation and this can be done by the operating surgeon at an appointment in the future. He will need a screening colonoscopy and this can be done as an outpatient as well. In the meantime I agree with current medical stabilization. He needs a diagnostic esophagogastroduodenoscopy this admission. Problem List Initiated/Reviewed/Updated: Yes Plan: Esophagogastroduodenoscopy tomorrow. The patient is familiar with the procedure its benefits its risks and alternatives and he wants to proceed after having all of his questions answered.
[2017-09-16] MEDS: Pantoprazole 80 MG in Sodium Chloride 0.9% 100 ML IV SCH ×2 (10:02→20:13)
--- NOTE | 2017-09-16 21:04 | PCM.SN ---
- Free Text/Narrative Note: His repeat hemoglobin and hematocrit are 7.4 and 22.3 respectively. Patient appears to be still having slow bleed. We will go ahead and transfuse 1 unit of packed RBC. He is scheduled for EGD tomorrow. He remained stable without any complaints.
[2017-09-17] MEDS: Sodium Chloride 0.9% 1,000 ML IV SCH ×2 (06:44→11:48)
[2017-09-17] MEDS: Pantoprazole 80 MG in Sodium Chloride 0.9% 100 ML IV SCH (08:07)
[2017-09-17] MEDS ORDERED: Pantoprazole 40 MG Vial IV SCH (09:00)
[2017-09-17] MEDS ORDERED: Magnesium Oxide 400 MG Tab PO ONE (09:00)
[2017-09-17] MEDS: Sucralfate 1 GM Tab PO SCH ×2 (09:21→10:59)
[2017-09-17] MEDS ORDERED: Magnesium Sulfate/Water 2 GM in Premix Bag 1 BAG IV ONE (09:22)
--- NOTE | 2017-09-17 09:25 | PCM.PREANE ---
Preanesthetic Assessment - Procedure Proposed Procedure: egd - Anesthesia/Transfusion/Family Hx Anesthesia History: Prior Anesthesia Without Reaction Family History of Anesthesia Reaction: No Transfusion History: Prior Transfusion Without Reaction - Review of Systems General: Weakness, Fatigue, Malaise (hgb) Pulmonary: No Symptoms Cardiovascular: No Symptoms Gastrointestinal: No Symptoms, Diarrhea (bloody stools) Neurological: No Symptoms Other: Reports: Liver Problems (3 years ago it swelled from meds) - Physical Assessment NPO Status Date: 09/16/17 NPO Status Time: 22:00 Pulse: 68 O2 Sat by Pulse Oximetry: 96 Respiratory Rate: 16 Blood Pressure: 103/83 Temperature: 97.9 F Vital Signs: Last Vital Signs Temp 97.9 F 09/17/17 06:24 Pulse 68 09/17/17 06:24 Resp 16 09/17/17 06:24 BP 103/83 09/17/17 06:24 Pulse Ox 96 09/17/17 06:53 Height: 5 ft 6 in Weight: 88.042 kg ASA Class: 2 Mental Status: Alert & Oriented x3 Airway Class: Mallampati = 2 Dentition: Reports: Normal Dentition Thyro-Mental Finger Breadths: 3 Mouth Opening Finger Breadths: 3 ROM/Head Extension: Full Lungs: Normal Respiratory Effort, Wheezing (insp and exp wheezing on left) Cardiovascular: Regular Rate, Regular Rhythm - Lab Values: Laboratory Last Values WBC 5.99 K/mm3 (4.23-9.07) 09/17/17 05:32 RBC 3.54 M/mm3 (4.63-6.08) L 09/17/17 05:32 Hgb 9.5 gm/L (13.7-17.5) L 09/17/17 05:32 Hct 29.4 % (40.1-51.0) L 09/17/17 05:32 MCV 83.1 fl (79.0-92.2) 09/17/17 05:32 MCH 26.8 pg (25.7-32.2) 09/17/17 05:32 MCHC 32.3 g/dl (32.2-35.5) 09/17/17 05:32 RDW Std Deviation 45.6 fL (35.1-43.9) H 09/17/17 05:32 Plt Count 193 K/mm3 (163-337) 09/17/17 05:32 MPV 10.7 fl (9.4-12.3) 09/17/17 05:32 Neut % (Auto) 67.9 % (34.0-67.9) 09/17/17 05:32 Lymph % (Auto) 20.9 % (21.8-53.1) L 09/17/17 05:32 [place] % (Auto) 8.7 % (5.3-12.2) 09/17/17 05:32 Eos % (Auto) 1.8 (0.8-7.0) 09/17/17 05:32 Baso % (Auto) 0.5 % (0.1-1.2) 09/17/17 05:32 Neut # (Auto) 4.07 K/mm3 (1.78-5.38) 09/17/17 05:32 Lymph # (Auto) 1.25 K/mm3 (1.32-3.57) L 09/17/17 05:32 [place] # (Auto) 0.52 K/mm3 (0.30-0.82) 09/17/17 05:32 Eos # (Auto) 0.11 K/mm3 (0.04-0.54) 09/17/17 05:32 Baso # (Auto) 0.03 K/mm3 (0.01-0.08) 09/17/17 05:32 Neutrophils % (Manual) 79 % (40-60) H 09/15/17 22:51 Band Neutrophils % 2 % (0-10) 09/15/17 22:51 Lymphocytes % (Manual) 14 % (20-40) L 09/15/17 22:51 Atypical Lymphs % 0 % 09/15/17 22:51 Monocytes % (Manual) 3 % (2-10) 09/15/17 22:51 Eosinophils % (Manual) 0 % (0.8-7.0) L 09/15/17 22:51 Basophils % (Manual) 2 (0.2-1.2) H 09/15/17 22:51 Platelet Estimate Adequate 09/15/17 22:51 Plt Morphology Comment See note 09/15/17 22:51 Polychromasia Few 09/15/17 22:51 Hypochromasia 1+ slight 09/15/17 22:51 Poikilocytosis 1+ slight 09/15/17 22:51 Anisocytosis 1+ slight 09/15/17 22:51 Ovalocytes Few 09/15/17 22:51 RBC Morph Comment Not Reportable 09/15/17 22:51 PT 10.9 SECONDS (9.5-12.1) 09/15/17 22:55 INR 1.00 09/15/17 22:55 Sodium 140 mEq/L (136-145) 09/16/17 06:20 Potassium 4.2 mEq/L (3.5-5.1) 09/16/17 06:20 Chloride 108 mEq/L (98-107) H 09/16/17 06:20 Carbon Dioxide 24 mEq/L (21-32) 09/16/17 06:20 Anion Gap 12.2 (5-15) 09/16/17 06:20 BUN 26 mg/dL (7-18) H 09/16/17 06:20 Creatinine 0.7 mg/dL (0.7-1.3) 09/16/17 06:20 Est Cr Clr Drug Dosing 106.33 mL/min 09/16/17 06:20 Estimated GFR (MDRD) > 60 mL/min (>60) 09/16/17 06:20 BUN/Creatinine Ratio 37.1 (14-18) H 09/16/17 06:20 Glucose 99 mg/dL (74-106) 09/16/17 06:20 Calcium 8.0 mg/dL (8.5-10.1) L 09/16/17 06:20 Magnesium 1.6 mg/dl (1.8-2.4) L 09/17/17 05:32 Iron 307 ug/dL (65-175) H 09/16/17 06:20 TIBC 300 ug/dL (100-400) 09/16/17 06:20 % Saturation 102 % (20-55) H 09/16/17 06:20 Transferrin 240 mg/dL (202-364) 09/16/17 06:20 Total Bilirubin 0.7 mg/dL (0.2-1.0) 09/15/17 22:51 AST 22 U/L (15-37) 09/15/17 22:51 ALT 27 U/L (16-63) 09/15/17 22:51 Alkaline Phosphatase 49 U/L (46-116) 09/15/17 22:51 Total Protein 5.6 g/dl (6.4-8.2) L 09/15/17 22:51 Albumin 2.8 g/dl (3.4-5.0) L 09/15/17 22:51 Globulin 2.8 gm/dL 09/15/17 22:51 Albumin/Globulin Ratio 1.0 (1-2) 09/15/17 22:51 Blood Type O POSITIVE 09/15/17 22:51 Gel Antibody Screen Negative 09/15/17 22:51 Crossmatch See Detail 09/15/17 22:51 - Allergies Allergies/Adverse Reactions: Allergies Allergy/AdvReac Type Severity Reaction Status Date / Time No Known Allergies Allergy Verified 09/16/17 03:19 - Acknowledgements Anesthesia Type Planned: MAC Pt an Appropriate Candidate for the Planned Anesthesia: Yes Alternatives and Risks of Anesthesia Discussed w Pt/Guardian: Yes Pt/Guardian Understands and Agrees with Anesthesia Plan: Yes PreAnesthesia Questionnaire HEENT History: Reports: Impaired Vision, Other (See Below) Other HEENT History: pt states that he wears glasses for reading. Cardiovascular History: Reports: None Respiratory History: Reports: None Gastrointestinal History: Reports: GERD Genitourinary History: Reports: Renal Calculus Musculoskeletal History: Reports: Arthritis Psychiatric History: Reports: Addiction (ETOH), Depression Endocrine/Metabolic History: Reports: Obesity/BMI 30+ Hematologic History: Reports: Blood Transfusion(s), Other (See Below) Other Hematologic History: pt currently admitted for gi bleed with a hgb of 7.6 and is receiving 2 units of blood. Oncologic (Cancer) History: Reports: None - Infectious Disease History Infectious Disease History: Reports: Shingles - Past Surgical History GI Surgical History: Reports: Hernia, Abdominal - History Comment History Comment: takes pill for arthritis every day but doesn't remember name of it- rx - SUBSTANCE USE Smoking Status *Q: Current Every Day Smoker Tobacco Use Within Last Twelve Months: Cigarettes Second Hand Smoke Exposure: Yes Days Per Week of Alcohol Use: 7 (vodka) Number of Drinks Per Day: 2 Total Drinks Per Week: 14 Recreational Drug Use History: No - HOME MEDS Home Medications: Home Meds Omeprazole 1 tab PO DAILY 01/12/17 [History] - CURRENT (IN HOUSE) MEDS Current Meds: Current Medications Acetaminophen (Tylenol) 650 mg PO Q4H PRN PRN Reason: Pain (Mild 1-3)/fever Hydrocodone Bitart/Acetaminophen ([place] 325-5 Mg) 1 tab PO Q4H PRN PRN Reason: Pain (moderate 4-6) Last Admin: 09/16/17 20:23 Dose: 1 tab Albuterol/Ipratropium (Duoneb 3.0-0.5 Mg/3 Ml) 3 ml NEB Q4H PRN PRN Reason: Shortness Of Breath/wheezing Hydralazine HCl (Apresoline) 20 mg IVPUSH Q4H PRN PRN Reason: Hypertension Promethazine HCl 12.5 mg/ (Sodium Chloride) 50.5 mls @ 100 mls/hr IV Q6H PRN PRN Reason: Nausea/Vomiting Sodium Chloride (Normal Saline) 1,000 mls @ 200 mls/hr IV ASDIRECTED [facility] Last Admin: 09/17/17 06:44 Dose: 200 mls/hr Lorazepam (Ativan) 2 mg IVPUSH Q4H PRN PRN Reason: Seizures Lorazepam (Ativan) 1 mg IV Q6H PRN PRN Reason: Anxiety Magnesium Sulfate (Pharmacy To Dose - Magnesium Replacement) 1 dose .XX ASDIRECTED [facility] Metoprolol Tartrate (Lopressor) 5 mg IVPUSH Q4H PRN PRN Reason: Tachycardia Ondansetron HCl (Zofran) 4 mg IV Q6H PRN PRN Reason: Nausea/Vomiting Pantoprazole Sodium (Protonix Iv) 40 mg IV BID [facility] Last Admin: 09/17/17 08:22 Dose: 40 mg Potassium Chloride (Pharmacy To Dose - Potassium Replacement) 1 dose .XX ASDIRECTED [facility] Sucralfate (Carafate) 1 gm PO QIDACANDBED [facility] Temazepam (Restoril) 15 mg PO BEDTIME PRN PRN Reason: Sleep Discontinued Medications Sodium Chloride (Normal Saline) Confirm Administered Dose 1,000 mls @ as directed .ROUTE .STK-MED ONE Stop: 09/15/17 23:07 Last Admin: 09/15/17 23:31 Dose: Not Given Pantoprazole Sodium 80 mg/ (Sodium Chloride) 100 mls @ 10 mls/hr IV .Continuous [facility] Sodium Chloride (Normal Saline) 1,000 mls @ 999 mls/hr IV ONETIME ONE Stop: 09/16/17 00:16 Last Admin: 09/15/17 23:18 Dose: 999 mls/hr Pantoprazole Sodium 80 mg/ (Sodium Chloride) 100 mls @ 10 mls/hr IV Q10H [facility] Last Admin: 09/17/17 08:07 Dose: Not Given Sodium Chloride (Normal Saline) 1,000 mls @ 125 mls/hr IV ASDIRECTED [facility] Last Infusion: 09/15/17 23:51 Dose: 999 mls/hr Sodium Chloride (Normal Saline) 1,000 mls @ 250 mls/hr IV ASDIRECTED [facility] Last Admin: 09/16/17 05:31 Dose: 100 mls/hr Sodium Chloride (Normal Saline) 1,000 mls @ 999 mls/hr IV ONETIME ONE Stop: 09/16/17 08:08 Last Admin: 09/16/17 07:57 Dose: 999 mls/hr Magnesium Oxide (Magnesium Oxide) 800 mg PO ONETIME ONE Stop: 09/17/17 09:01 Pantoprazole Sodium (Protonix Iv) 40 mg IVPUSH ONETIME ONE Stop: 09/15/17 23:13 Last Admin: 09/15/17 23:15 Dose: 40 mg
[2017-09-17] MEDS ORDERED: Albuterol 0.083% 2.5 MG/3 ML Neb Soln NEB ONE (09:28)
[2017-09-17] MEDS ORDERED: Propofol 200 MG/20 ML SDV ONE (10:32)
[2017-09-17] MEDS ORDERED: fentaNYL 100 MCG/2 ML SDV ONE (10:32)
[2017-09-17] MEDS ORDERED: Lidocaine 1% 6 ML ONE (10:32)
[2017-09-17 13:02] VITALS: BP 101/50
--- NOTE | 2017-09-17 13:02 | PCM48HPAN ---
Post Anesthesia Note - EVALUATION WITHIN 48HRS OF ANESTHETIC Vital Signs in Normal Range: Yes Patient Participated in Evaluation: Yes Respiratory Function Stable: Yes Airway Patent: Yes Cardiovascular Function Stable: Yes Hydration Status Stable: Yes Pain Control Satisfactory: Yes Nausea and Vomiting Control Satisfactory: Yes Mental Status Recovered: Yes Pulse Rate: 71 SaO2: 95 Resp Rate: 23 Blood Pressure: 101/50 Pulse Rate: 71 - COMMENTS/OBSERVATIONS Free Text/Narrative:: Patient awake alert and conversating well with staff.
--- NOTE | 2017-09-17 13:18 | PCM.OPNOTE ---
- General Post-Op/Procedure Note Date of Surgery/Procedure: 09/17/17 Operative Procedure(s): Esophagogastroduodenoscopy with forceps biopsy of gastric ulcer Findings: Shallow gastric ulcer with heavy exudate in the crater high on the greater curve with no visible vessel and no blood within the lumen. The lesion is approximately 1-1/2 cm in diameter. There was no duodenal ulcer component. Pre Op Diagnosis: Upper GI bleed Post-Op Diagnosis: Gastric ulcer Anesthesia Technique: MAC, Moderate Sedation Primary Surgeon: Jesus Alcantara Pathology: Biopsy of gastric ulcer EBL in mLs: 0 Complications: None Condition: Good Free Text/Narrative:: Intake & Output 09/16/17 09/17/17 09/17/17 22:59 06:59 14:59 Intake Total 3060 2444 Output Total 800 Balance 2260 2444 After adequate IV sedation and analgesia was obtained with monitoring the patient was placed on his left side. Through a bite-block lubricated upper endoscope was inserted into the esophagus then advanced under direct vision to reach the stomach. There was some distortion of the anatomy because of the previous antireflux procedure. There was no luminal blood within the body of the stomach. I advanced the scope towards the antrum and then into the pylorus to the distal aspect of the second part of the duodenum. The second and first parts were endoscopically normal with no ulcers or mass lesions seen. There was some minor scope trauma in the distal first part of duodenum. I then withdrew the scope to the antral area which was endoscopically normal. In the retroflexed view the ulcer which was defined above was seen and not bleeding. I took one biopsy of the ulcer age for histopathologic evaluation. The hiatal hernia repair was also observed. The body of the stomach was grossly normal with normal rugal folds. The scope was then withdrawn to the GE junction which was sharp and had no ulcers or chronic inflammatory changes. The body of the esophagus was unremarkable. Air was removed as I finished the procedure which she tolerated well. [employer] photographs were taken for the patient and for the medical record.
--- NOTE | 2017-09-17 14:43 | PCM.DCSUM1 ---
Discharge Summary - Hospital Course HPI Initial Comments: This is a 56-year-old male. About 3 days ago he developed some upper abdominal pain and noted shortly thereafter he had some black looking stool. He's been having black stools several times a day since that time and today his stool looked more maroonish. He's been feeling very weak and very tired over the last few days and he finally comes to the ER this evening for evaluation. The pain is in the epigastric area of his abdomen. He has been trying some over-the- counter medications and Prilosec but that hasn't been helping. He has no history of ulcers. These never had an upper GI bleed in the past. He has had no recent illnesses no colds no cough no fever no chills. He denies using a lot of anti-inflammatories or aspirin. The patient states he has been nauseated but he has not vomited any blood. The patient has no history of peptic ulcer disease or esophageal varices. He does drink alcohol on a regular basis, usually some shots of vodka. He does take an arthritis medication of the type we do not know when he doesn't remember the name of the medication. - Discharge Data Discharge Date: 09/17/17 (ADMIT 09/16/17) Discharge Disposition: Home, Self-Care 01 Condition: Good - Discharge Diagnosis/Problem(s) (1) Gastric ulcer SNOMED Code(s): 482639285 ICD Code: K25.9 - GASTRIC ULCER, UNSP ACUTE OR CHRONIC, W/O HEMOR OR PERF Status: Acute Priority: High Current Visit: Yes Qualifiers: Gastric ulcer chronicity: acute Gastric ulcer complication status: with hemorrhage Qualified Code(s): K25.0 - Acute gastric ulcer with hemorrhage (2) Hypotension due to blood loss SNOMED Code(s): 77373115 ICD Code: I95.89 - OTHER HYPOTENSION Status: Resolved Priority: High Current Visit: Yes (3) Severe anemia SNOMED Code(s): 192409658 ICD Code: D64.9 - ANEMIA, UNSPECIFIED Status: Resolved Priority: High Current Visit: Yes (4) Upper GI bleeding SNOMED Code(s): 33675919 ICD Code: K92.2 - GASTROINTESTINAL HEMORRHAGE, UNSPECIFIED Status: Acute Priority: High Current Visit: Yes - Patient Summary/Data Operative Procedure(s) Performed: Esophagogastroduodenoscopy with forceps biopsy of gastric ulcer Complications: none Consults: Consultations 09/16/17 06:52 Consult to Physician [CONS] Routine Labs Pending at D/C: none Recommended Follow-up Testing/Procedures: Follow-up with PCP, Dasha Brown PA-C, in 7-10 days and again in 4-8 weeks (may need to continue new prescription medications) -New Prescriptions for 8 weeks: Omeprazole 40mg and Carafate 1g QID -Also prescribed nicotine patches if needed for quitting smoking, can also f/ u with PCP for continuation Follow-up endoscopy in [address] Alcantara. Planned Operative Procedure(s) after DC: Repeat EGD in [address] Alcantara [facility] Hospital Course: Assessment/Plan: Acute: Gastric Ulcer -Found on EGD by Dr. Alcantara -Omeprazole 40mg Q Daily x 8weeks -Carafate QID x8 weeks, before meals and at bedtime -Repeat EGD in [address] Alcantara -Recommend no alcohol, NSAIDs, or smoking -Return to ED if bleeding gets worse or become symptomatic (weak, dizzy, etc) -F/U with PCP GI Bleed - Carries a hx/o Gastric Ulcer - Risk factors: NSAID and ETOH Use - PPI drip and IVF - S/p 3 units of PRBC transfusion - Hgb 7.6--> 8.7-->9.5 - Dr. Alcantara consult Hypotension, improved - 2/2 Volume loss for GI Bleed - Aggressive Volume resuscitation Tobacco User -1-3 cigarettes socially per day -Does not feel he needs help quitting, but would like a nicotine patch prescription just in case -Practical counseling and smoking cessation education given -Prescription for Nicotine patches given -F/U with PCP for future cessation help Chronic: GERD Anxiety Depression Plan: Admit to [facility] Routine AM Labs Resume Home Medication Adequate IV Hydration Carafate 1 gram QID Monitor H/H and hemodynamic status Full liquid and then NPO midnight Dr. Alcantara consult for possible EGD Code status: 1 PCP is Dasha Brown PA-C; Pt is Full Code D/C HOME TODAY Adrian has recovered quite well after being admitted for GI bleed. He had multiple tests done and was found to have a gastric ulcer. He should follow-up with his primary care provider in 7-10 days and again in 4-6 weeks to reevaluate treatment regimen. He was discharged home with prescriptions for Omeprazole 40mg Q daily x 8weeks and Carafate 1g QID x 8weeks. He should have a follow up EGD with Dr. Alcantara in 12 weeks. His Hgb and BP were low here and should be rechecked with his primary care provider. He will be discharged home today. - Patient Instructions Diet: No Alcoholic Beverages, Full Liquid Diet (Advance as tolerated) Activity: As Tolerated, Rest and Relax Today Driving: May Drive Today Showering/Bathing: May Shower Notify Provider of: Fever, Increased Pain, Nausea and/or Vomiting Other/Special Instructions: Return to ED if become weak, dizzy, or have an increase in bleeding/bloody stool. - Discharge Plan Prescriptions/Med Rec: Nicotine [Nicotine Patch] 1 patch TD DAILY #30 patch.td24 Omeprazole 40 mg PO DAILY #56 cap.sr Sucralfate [Carafate] 1 gm PO QID #224 tablet Home Medications: Home Meds Nicotine [Nicotine Patch] 1 patch TD DAILY #30 patch.td24 09/17/17 [Rx] Omeprazole 40 mg PO DAILY #56 cap.sr 09/17/17 [Rx] Sucralfate [Carafate] 1 gm PO QID #224 tablet 09/17/17 [Rx] Patient Handouts: Peptic Ulcer, [id number], Hypotension, [id number], Peptic Ulcer Eating Plan, Gastrointestinal Bleeding, [id number], Steps to Quit Smoking Referrals: Dasha Brown PA-C [Primary Care Provider] - - Discharge Summary/Plan Comment DC Time >30 min.: Yes (40) - General Info Date of Service: 09/17/17 Admission Dx/Problem (Free Text: Admission Diagnosis/Problem Admission Diagnosis/Problem Gastrointestinal hemorrhage Subjective Update: In to see Adrian today. He is lying in bed visiting with his family. Overall he is doing quite well. He has no complaints. He has been sleeping well. Good appetite-on full liquid diet for now, advanced as tolerated. Ambulating. Pain is controlled. No nausea, vomiting, diarrhea. Still having some black, tarry stools. Urinating. No concerns from nursing. Will be DCd back to home today with Omeprazole 40mg x 8weeks and Carafate 1g QID x8 weeks. Functional Status: Reports: Pain Controlled, Tolerating Diet, Ambulating, Urinating - Review of Systems General: Reports: No Symptoms. Denies: Fever, Chills HEENT: Reports: No Symptoms Pulmonary: Reports: No Symptoms Cardiovascular: Reports: No Symptoms Gastrointestinal: Reports: Abdominal Pain (mild), Other (black tarry stools). Denies: Constipation, Diarrhea, Nausea, Vomiting Genitourinary: Reports: No Symptoms Musculoskeletal: Reports: No Symptoms Skin: Reports: No Symptoms Neurological: Reports: No Symptoms Psychiatric: Reports: No Symptoms - Patient Data Vitals - Most Recent: Last Vital Signs Temp 98.2 F 09/17/17 09:36 Pulse 71 09/17/17 13:02 Resp 23 H 09/17/17 13:02 BP 101/50 L 09/17/17 13:02 Pulse Ox 95 09/17/17 13:02 Weight - Most Recent: 194 lb 1.6 oz I&O - Last 24 hours: Intake & Output 09/16/17 09/17/17 09/17/17 22:59 06:59 14:59 Intake Total 3060 2444 Output Total 800 Balance 2260 2444 Lab Results - Last 24 hrs: Laboratory Results - last 24 hr 09/15/17 09/16/17 09/17/17 Range/Units 22:51 19:15 05:32 WBC 5.99 (4.23-9.07) K/mm3 RBC 3.54 L (4.63-6.08) M/mm3 Hgb 7.4 L 9.5 L (13.7-17.5) gm/L Hct 23.3 L 29.4 L (40.1-51.0) % MCV 83.1 (79.0-92.2) fl MCH 26.8 (25.7-32.2) pg MCHC 32.3 (32.2-35.5) g/dl RDW Std Deviation 45.6 H (35.1-43.9) fL Plt Count 193 (163-337) K/mm3 MPV 10.7 (9.4-12.3) fl Neut % (Auto) 67.9 (34.0-67.9) % Lymph % (Auto) 20.9 L (21.8-53.1) % [place] % (Auto) 8.7 (5.3-12.2) % Eos % (Auto) 1.8 (0.8-7.0) Baso % (Auto) 0.5 (0.1-1.2) % Neut # (Auto) 4.07 (1.78-5.38) K/mm3 Lymph # (Auto) 1.25 L (1.32-3.57) K/mm3 [place] # (Auto) 0.52 (0.30-0.82) K/mm3 Eos # (Auto) 0.11 (0.04-0.54) K/mm3 Baso # (Auto) 0.03 (0.01-0.08) K/mm3 Magnesium (1.8-2.4) mg/dl Blood Type O POSITIVE Gel Antibody Screen Negative Crossmatch See Detail 09/17/17 Range/Units 05:32 WBC (4.23-9.07) K/mm3 RBC (4.63-6.08) M/mm3 Hgb (13.7-17.5) gm/L Hct (40.1-51.0) % MCV (79.0-92.2) fl MCH (25.7-32.2) pg MCHC (32.2-35.5) g/dl RDW Std Deviation (35.1-43.9) fL Plt Count (163-337) K/mm3 MPV (9.4-12.3) fl Neut % (Auto) (34.0-67.9) % Lymph % (Auto) (21.8-53.1) % [place] % (Auto) (5.3-12.2) % Eos % (Auto) (0.8-7.0) Baso % (Auto) (0.1-1.2) % Neut # (Auto) (1.78-5.38) K/mm3 Lymph # (Auto) (1.32-3.57) K/mm3 [place] # (Auto) (0.30-0.82) K/mm3 Eos # (Auto) (0.04-0.54) K/mm3 Baso # (Auto) (0.01-0.08) K/mm3 Magnesium 1.6 L (1.8-2.4) mg/dl Blood Type Gel Antibody Screen Crossmatch OTILIO Results - Last 24 hrs: Microbiology 09/17/17 05:30 Helicobacter pylori Antigen - Final Stool / Feces NEGATIVE H. PYLORI AG 09/16/17 18:54 Helicobacter pylori Antigen - Final Stool / Feces NEGATIVE H. PYLORI AG Med Orders - Current: Current Medications Acetaminophen (Tylenol) 650 mg PO Q4H PRN PRN Reason: Pain (Mild 1-3)/fever Hydrocodone Bitart/Acetaminophen ([place] 325-5 Mg) 1 tab PO Q4H PRN PRN Reason: Pain (moderate 4-6) Last Admin: 09/16/17 20:23 Dose: 1 tab Albuterol/Ipratropium (Duoneb 3.0-0.5 Mg/3 Ml) 3 ml NEB Q4H PRN PRN Reason: Shortness Of Breath/wheezing Hydralazine HCl (Apresoline) 20 mg IVPUSH Q4H PRN PRN Reason: Hypertension Promethazine HCl 12.5 mg/ (Sodium Chloride) 50.5 mls @ 100 mls/hr IV Q6H PRN PRN Reason: Nausea/Vomiting Sodium Chloride (Normal Saline) 1,000 mls @ 200 mls/hr IV ASDIRECTED [facility] Last Admin: 09/17/17 11:48 Dose: 200 mls/hr Lorazepam (Ativan) 2 mg IVPUSH Q4H PRN PRN Reason: Seizures Lorazepam (Ativan) 1 mg IV Q6H PRN PRN Reason: Anxiety Magnesium Sulfate (Pharmacy To Dose - Magnesium Replacement) 1 dose .XX ASDIRECTED [facility] Metoprolol Tartrate (Lopressor) 5 mg IVPUSH Q4H PRN PRN Reason: Tachycardia Ondansetron HCl (Zofran) 4 mg IV Q6H PRN PRN Reason: Nausea/Vomiting Pantoprazole Sodium (Protonix Iv) 40 mg IV BID [facility] Last Admin: 09/17/17 08:22 Dose: 40 mg Potassium Chloride (Pharmacy To Dose - Potassium Replacement) 1 dose .XX ASDIRECTED [facility] Sucralfate (Carafate) 1 gm PO QIDACANDBED [facility] Last Admin: 09/17/17 10:59 Dose: Not Given Temazepam (Restoril) 15 mg PO BEDTIME PRN PRN Reason: Sleep Discontinued Medications Albuterol (Proventil Neb Soln) 2.5 mg NEB ONETIME ONE Stop: 09/17/17 09:29 Fentanyl (Sublimaze) Confirm Administered Dose 100 mcg .ROUTE .STK-MED ONE Stop: 09/17/17 10:33 Sodium Chloride (Normal Saline) Confirm Administered Dose 1,000 mls @ as directed .ROUTE .STK-MED ONE Stop: 09/15/17 23:07 Last Admin: 09/15/17 23:31 Dose: Not Given Pantoprazole Sodium 80 mg/ (Sodium Chloride) 100 mls @ 10 mls/hr IV .Continuous MAXIMILIANO Sodium Chloride (Normal Saline) 1,000 mls @ 999 mls/hr IV ONETIME ONE Stop: 09/16/17 00:16 Last Admin: 09/15/17 23:18 Dose: 999 mls/hr Pantoprazole Sodium 80 mg/ (Sodium Chloride) 100 mls @ 10 mls/hr IV Q10H [facility]IM[facility]O Last Admin: 09/17/17 08:07 Dose: Not Given Sodium Chloride (Normal Saline) 1,000 mls @ 125 mls/hr IV ASDIRECTED MAXIMILIANO Last Infusion: 09/15/17 23:51 Dose: 999 mls/hr Sodium Chloride (Normal Saline) 1,000 mls @ 250 mls/hr IV ASDIRECTED [facility] Last Admin: 09/16/17 05:31 Dose: 100 mls/hr Sodium Chloride (Normal Saline) 1,000 mls @ 999 mls/hr IV ONETIME ONE Stop: 09/16/17 08:08 Last Admin: 09/16/17 07:57 Dose: 999 mls/hr Magnesium Sulfate 2 gm/ Premix 50 mls @ 25 mls/hr IV ONETIME ONE Stop: 09/17/17 11:21 Last Admin: 09/17/17 09:38 Dose: 25 mls/hr Lidocaine HCl (Xylocaine-Mpf 1%) Confirm Administered Dose 6 mls @ as directed .ROUTE .STK-MED ONE Stop: 09/17/17 10:33 Magnesium Oxide (Magnesium Oxide) 800 mg PO ONETIME ONE Stop: 09/17/17 09:01 Last Admin: 09/17/17 09:22 Dose: Not Given Pantoprazole Sodium (Protonix Iv) 40 mg IVPUSH ONETIME ONE Stop: 09/15/17 23:13 Last Admin: 09/15/17 23:15 Dose: 40 mg Propofol (Diprivan 20 Ml) Confirm Administered Dose 200 mg .ROUTE .K-MED ONE Stop: 09/17/17 10:33 - Exam Quality Assessment: Reports: DVT Prophylaxis General: Reports: Alert, Oriented, Cooperative, No Acute Distress HEENT: Reports: Pupils Equal, Pupils Reactive, EOMI, Mucous Membr. Moist/[place] Neck: Reports: Supple Lungs: Reports: Clear to Auscultation, Normal Respiratory Effort Cardiovascular: Reports: Regular Rate, Regular Rhythm GI/Abdominal Exam: Normal Bowel Sounds, Soft, Non-Tender, No Organomegaly, No Distention, No Abnormal Bruit, No Mass, Pelvis Stable (Male) Exam: Deferred Rectal (Males) Exam: Deferred Back Exam: Reports: Normal Inspection, Full Range of Motion Extremities: Normal Inspection, Normal Range of Motion, Non-Tender, No Pedal Edema, Normal Capillary Refill Skin: Reports: Warm, Dry, Intact Neurological: Reports: No New Focal Deficit Psy/Mental Status: Reports: Alert, Normal Affect, Normal Mood
== END 2017-09-17 15:30 | disposition home or self-care (01) | DRG 378 ==
LOC: JD.ED 22:36 → JD.ICU 09-16 00:42 → JD.MS 09-16 00:45
PROVIDERS: ADMIT Internal Medicine; ATTEND Internal Medicine
PROC: 30233N1 Transfusion of Nonautologous Red Blood Cells into Peripheral Vein, Percutaneous Approach (ICD-10-PCS; 2017-09-16)
PROC: 0DB68ZX Excision of Stomach, Via Natural or Artificial Opening Endoscopic, Diagnostic (ICD-10-PCS; principal; 2017-09-17)
DX: K25.0 Acute gastric ulcer with hemorrhage (principal); D62 Acute posthemorrhagic anemia; M19.90 Unspecified osteoarthritis, unspecified site; F17.210 Nicotine dependence, cigarettes, uncomplicated; K21.9 Gastro-esophageal reflux disease without esophagitis; F41.9 Anxiety disorder, unspecified; F32.9 Major depressive disorder, single episode, unspecified; E66.9 Obesity, unspecified; Z68.29 Body mass index [BMI] 29.0-29.9, adult; H54.7 Unspecified visual loss
CPT/HCPCS: 36415; 36430; 80048; 80053; 83540; 83735; 84466; 85007; 85014; 85018; 85025; 85027; 85610; 86850; 86900; 86901; 86922; 87338; 96365; 96375; 99285-25; A9270-GY; C9113; J2001; J2704; J3010; J3475; J7030; J7040; P9016

== ENCOUNTER 2018-07-11 15:45 | Inpatient (IN) | payer BC, SELFPAY ==
[2018-07-11] MEDS ORDERED: Ondansetron 4 MG/2 ML SDV IVPUSH ONE (16:23)
[2018-07-11] MEDS ORDERED: Sodium Chloride 0.9% 10 ML Syringe FLUSH PRN (16:23)
[2018-07-11] MEDS ORDERED: HYDROmorphone 1 MG/ML Syringe IVPUSH ONE (16:24)
[2018-07-11] MEDS ORDERED: Pantoprazole 40 MG Vial IVPUSH ONE (16:24)
[2018-07-11] MEDS ORDERED: Sodium Chloride 0.9% 1,000 ML IV SCH (16:30)
[2018-07-11] MEDS: Pantoprazole 80 MG in Sodium Chloride 0.9% 100 ML IV SCH (16:47)
--- NOTE | 2018-07-11 18:01 | EDM.PDOC ---
ED HPI GENERAL MEDICAL PROBLEM - General Chief Complaint: Respiratory Problem Stated Complaint: SOB/STOOL BLACK Time Seen by Provider: 07/11/18 15:58 Source of Information: Reports: Patient, Family History Limitations: Reports: No Limitations - History of Present Illness INITIAL COMMENTS - FREE TEXT/NARRATIVE: The patient presents with epigastric abdominal pain, nausea and black stools. He has a history of a GI bleed last year. He had an EGD done and he was put on some acid net finisher. He does admit to drinking about 3 shots per day. He says he feels weak especially the past 3 days and he is short of breath with exertion. He has no chest pain. He almost passed out last night. He has no fever, chills or cough. He has nausea but no vomiting. He did have a hiatal hernia in the past and had surgery for that. He is not sure what procedure they did. Onset: Gradual Duration: Day(s): (3) Location: Reports: Abdomen Quality: Reports: Ache Severity: Mild Improves with: Reports: None Worsens with: Reports: None Associated Symptoms: Reports: Nausea/Vomiting, Shortness of Breath. Denies: Chest Pain, Cough, Fever/Chills, Headaches - Related Data Allergies Allergy/AdvReac Type Severity Reaction Status Date / Time No Known Allergies Allergy Verified 07/11/18 15:55 Home Meds: Home Meds Omeprazole 40 mg PO DAILY #56 cap.sr 09/17/17 [Rx] Sucralfate [Carafate] 1 gm PO QID #224 tablet 09/17/17 [Rx] Multivitamin [Multi-Vitamin Daily] 1 tab PO DAILY 07/11/18 [History] [place]-3/DHA/Epa/Fish Oil [[place]-3 Fish Oil 1,000 MG Sfgl] 1,000 mg PO DAILY [History] Past Medical History HEENT History: Reports: Impaired Vision, Other (See Below) Other HEENT History: pt states that he wears glasses for reading. Cardiovascular History: Reports: None Respiratory History: Reports: None Gastrointestinal History: Reports: GERD Genitourinary History: Reports: Renal Calculus Musculoskeletal History: Reports: Arthritis Neurological History: Reports: None Psychiatric History: Reports: Anxiety, Depression Endocrine/Metabolic History: Reports: Obesity/BMI 30+ Hematologic History: Reports: Blood Transfusion(s) Other Hematologic History: pt currently admitted for gi bleed with a hgb of 7.6 and is receiving 2 units of blood. Immunologic History: Reports: None Oncologic (Cancer) History: Reports: None Dermatologic History: Reports: None - Infectious Disease History Infectious Disease History: Reports: Shingles - Past Surgical History Head Surgeries/Procedures: Reports: None GI Surgical History: Reports: Hernia, Abdominal - History Comment History Comment: takes pill for arthritis every day but doesn't remember name of it- rx Social & Family History - Family History Family Medical History: Noncontributory - Tobacco Use Smoking Status *Q: Former Smoker Used Tobacco, but Quit: Yes Month/Year Tobacco Last Used: 11/14 - Caffeine Use Caffeine Use: Reports: Coffee - Recreational Drug Use Recreational Drug Use: No ED ROS GENERAL - Review of Systems Review Of Systems: See Below Constitutional: Reports: Weakness, Fatigue. Denies: Fever, Chills HEENT: Reports: No Symptoms Respiratory: Reports: Shortness of Breath. Denies: Cough Cardiovascular: Reports: Lightheadedness. Denies: Chest Pain Endocrine: Reports: Fatigue GI/Abdominal: Reports: Abdominal Pain, Black Stool, Nausea. Denies: Vomiting : Reports: No Symptoms Musculoskeletal: Reports: No Symptoms ED EXAM, GENERAL - Physical Exam Exam: See Below Exam Limited By: No Limitations General Appearance: Alert, No Apparent Distress Ears: Normal External Exam Nose: Normal Inspection Head: Atraumatic, Normocephalic Neck: Normal Inspection Respiratory/Chest: No Respiratory Distress, Lungs Clear, Normal Breath Sounds Cardiovascular: Regular Rate, Rhythm, No Edema, No Murmur GI/Abdominal: Soft, No Organomegaly, No Mass, Tender (Mild tenderness to the upper abdomen) Rectal (Males) Exam: Heme + Stool Back Exam: Normal Inspection Extremities: Normal Inspection Course - Vital Signs Last Recorded V/S: Last Vital Signs Temp 96.8 F 07/11/18 15:52 Pulse 122 H 07/11/18 15:52 Resp 24 H 07/11/18 15:52 BP 137/81 07/11/18 15:52 Pulse Ox 98 07/11/18 15:52 - Orders/Labs/Meds Orders: Active Orders 24 hr Category Date Time Status Peripheral IV Care [RC] . DIRECTED Care 07/11/18 16:24 Active Abdomen 1V Upright [CR] Stat Exams 07/11/18 16:23 Taken Abdomen Pelvis wo Cont [CT] Stat Exams 07/11/18 17:32 Taken ETOH [ETHANOL BLOOD MEDICAL] [CHEM] Stat Lab 07/11/18 18:08 Received PATIENT RETYPE [BBK] Routine Lab 07/11/18 18:15 Ordered RED BLOOD CELLS LP [BBK] Stat Lab 07/11/18 16:05 Results TYPE AND SCREEN [BBK] Stat Lab 07/11/18 16:05 Results Pantoprazole [ProTONIX IV] 80 mg Med 07/11/18 16:30 Active Sodium Chloride 0.9% [Normal Saline] 100 ml IV Q10H Sodium Chloride 0.9% [Normal Saline] 1,000 ml Med 07/11/18 16:30 Active IV ASDIRECTED Sodium Chloride 0.9% [Saline Flush] Med 07/11/18 16:23 Active 10 ml FLUSH ASDIRECTED PRN ED Antiemetic Medication Reflex [OM.PC] Stat Oth 07/11/18 16:23 Ordered Peripheral IV Insertion Adult [OM.PC] Stat Oth 07/11/18 16:23 Ordered Transfuse PRBC [Transfuse Red Blood Cells] [COMM] Stat Oth 07/11/18 17:36 Ordered Medication Orders Pantoprazole Sodium 80 mg/ (Sodium Chloride) 100 mls @ 10 mls/hr IV Q10H [facility] Last Admin: 07/11/18 16:47 Dose: 10 mls/hr Sodium Chloride (Normal Saline) 1,000 mls @ 125 mls/hr IV ASDIRECTED MAXIMILIANO Last Admin: 07/11/18 16:47 Dose: 125 mls/hr Sodium Chloride (Saline Flush) 10 ml FLUSH ASDIRECTED PRN PRN Reason: Keep Vein Open Last Admin: 07/11/18 16:50 Dose: 10 ml Labs: Laboratory Tests 07/11/18 07/11/18 07/11/18 Range/Units 16:05 16:05 16:05 WBC 12.65 H (4.23-9.07) K/mm3 RBC 3.39 L (4.63-6.08) M/mm3 Hgb 6.5 L* (13.7-17.5) gm/L Hct 23.0 L (40.1-51.0) % MCV 67.8 L (79.0-92.2) fl MCH 19.2 L (25.7-32.2) pg MCHC 28.3 L (32.2-35.5) g/dl RDW Std Deviation 52.8 H (35.1-43.9) fL Plt Count 365 H (163-337) K/mm3 MPV 10.2 (9.4-12.3) fl Neut % (Auto) 81.3 H (34.0-67.9) % Lymph % (Auto) 8.1 L (21.8-53.1) % [place] % (Auto) 10.0 (5.3-12.2) % Eos % (Auto) 0 L (0.8-7.0) Baso % (Auto) 0.3 (0.1-1.2) % Neut # (Auto) 10.29 H (1.78-5.38) K/mm3 Lymph # (Auto) 1.02 L (1.32-3.57) K/mm3 [place] # (Auto) 1.26 H (0.30-0.82) K/mm3 Eos # (Auto) 0.00 L (0.04-0.54) K/mm3 Baso # (Auto) 0.04 (0.01-0.08) K/mm3 Manual Slide Review Abnormal smear Sodium 139 (136-145) mEq/L Potassium 3.7 (3.5-5.1) mEq/L Chloride 101 (98-107) mEq/L Carbon Dioxide 17 L (21-32) mEq/L Anion Gap 24.7 H (5-15) BUN 24 H (7-18) mg/dL Creatinine 1.1 (0.7-1.3) mg/dL Est Cr Clr Drug Dosing 66.86 mL/min Estimated GFR (MDRD) > 60 (>60) mL/min BUN/Creatinine Ratio 21.8 H (14-18) Glucose 150 H (74-106) mg/dL Calcium 9.2 (8.5-10.1) mg/dL Magnesium 1.6 L (1.8-2.4) mg/dl Total Bilirubin 0.6 (0.2-1.0) mg/dL AST 38 H (15-37) U/L ALT 35 (16-63) U/L Alkaline Phosphatase 96 (46-116) U/L Total Protein 6.9 (6.4-8.2) g/dl Albumin 3.2 L (3.4-5.0) g/dl Globulin 3.7 gm/dL Albumin/Globulin Ratio 0.9 L (1-2) Lipase 368 (73-393) U/L Blood Type O POSITIVE Gel Antibody Screen Negative Crossmatch See Detail Meds: Medications Generic Name Dose Route Start Last Admin Trade Name Dilanq PRN Reason Stop Dose Admin Pantoprazole Sodium 80 mg/ 100 mls @ 10 mls/hr 07/11/18 16:30 07/11/18 16:47 Sodium Chloride IV 10 mls/hr Q10H MAXIMILIANO Administration Sodium Chloride 1,000 mls @ 125 mls/hr 07/11/18 16:30 07/11/18 16:47 Normal Saline IV 125 mls/hr ASDIRECTED MAXIMILIANO Administration Sodium Chloride 10 ml 07/11/18 16:23 07/11/18 16:50 Saline Flush FLUSH 10 ml ASDIRECTED PRN Administration Keep Vein Open Discontinued Medications Generic Name Dose Route Start Last Admin Trade Name Celso PRN Reason Stop Dose Admin Hydromorphone HCl 1 mg 07/11/18 16:24 07/11/18 16:46 Dilaudid IVPUSH 07/11/18 16:25 1 mg ONETIME ONE Administration Ondansetron HCl 4 mg 07/11/18 16:23 07/11/18 16:42 Zofran IVPUSH 07/11/18 16:24 4 mg ONETIME ONE Administration Pantoprazole Sodium 80 mg 07/11/18 16:24 07/11/18 16:44 Protonix Iv IVPUSH 07/11/18 16:25 80 mg BOLUS ONE Administration - Re-Assessments/Exams Free Text/Narrative Re-Assessment/Exam: 07/11/18 18:02 I ordered an IV NS at 125mL/hr, zofran 4mg IV, dilaudid 1mg IV, protonix bolus of 80mg IV, protonix drip at 8mg/her, labs and an abdominal x-ray. His abdominal x-ray shows a possible hiatal hernia but no free air. His WBC was elevated at 12.65. His Hgb was low at 6.5. I have ordered 2 units of blood. His rectal exam was heme positive. His platelets were a little elevated at 365. His anion gap was elevated at 24.7. His BUN was elevated at 24. His creatinine was normal at 1.1. His glucose was elevated at 150. His magnesium is low at 1.6. His AST was elevated at 38. I have ordered blood. I talked to Dr Simons about admission and getting a CT of his abdomen and he was in favor of getting the CT. 07/11/18 18:[address] shows a moderate hiatal hernia that is not changed from prior CT. Nothing acute is seen. I called Dr Simons and he agreed to the admission. Departure - Departure Time of Disposition: 18:35 Disposition: Admitted As Inpatient 66 Condition: Poor Clinical Impression: Upper GI bleeding, Nausea, Alcohol abuse - Discharge Information Referrals: Franny Seay CELL ROOM OPERATOR [Primary Care Provider] - Forms: ED Department Discharge - My Orders Last 24 Hours: My Active Orders 07/11/18 16:05 RED BLOOD CELLS LP [BBK] Stat TYPE AND SCREEN [BBK] Stat 07/11/18 16:23 Abdomen 1V Upright [CR] Stat Sodium Chloride 0.9% [Saline Flush] 10 ml FLUSH ASDIRECTED PRN ED Antiemetic Medication Reflex [OM.PC] Stat Peripheral IV Insertion Adult [OM.PC] Stat 07/11/18 16:24 Peripheral IV Care [RC] . DIRECTED 07/11/18 16:30 Pantoprazole [ProTONIX IV] 80 mg Sodium Chloride 0.9% [Normal Saline] 100 ml IV Q10H Sodium Chloride 0.9% [Normal Saline] 1,000 ml IV ASDIRECTED 07/11/18 17:32 Abdomen Pelvis wo Cont [CT] Stat 07/11/18 17:36 Transfuse PRBC [Transfuse Red Blood Cells] [COMM] Stat 07/11/18 18:08 ETOH [ETHANOL BLOOD MEDICAL] [CHEM] Stat 07/11/18 18:15 PATIENT RETYPE [BBK] Routine - Assessment/Plan Last 24 Hours: My Active Orders 07/11/18 16:05 RED BLOOD CELLS LP [BBK] Stat TYPE AND SCREEN [BBK] Stat 07/11/18 16:23 Abdomen 1V Upright [CR] Stat Sodium Chloride 0.9% [Saline Flush] 10 ml FLUSH ASDIRECTED PRN ED Antiemetic Medication Reflex [OM.PC] Stat Peripheral IV Insertion Adult [OM.PC] Stat 07/11/18 16:24 Peripheral IV Care [RC] . DIRECTED 07/11/18 16:30 Pantoprazole [ProTONIX IV] 80 mg Sodium Chloride 0.9% [Normal Saline] 100 ml IV Q10H Sodium Chloride 0.9% [Normal Saline] 1,000 ml IV ASDIRECTED 07/11/18 17:32 Abdomen Pelvis wo Cont [CT] Stat 07/11/18 17:36 Transfuse PRBC [Transfuse Red Blood Cells] [COMM] Stat 07/11/18 18:08 ETOH [ETHANOL BLOOD MEDICAL] [CHEM] Stat 07/11/18 18:15 PATIENT RETYPE [BBK] Routine
[2018-07-11] MEDS ORDERED: Ondansetron 4 MG/2 ML SDV IV PRN (20:24)
[2018-07-11] MEDS ORDERED: Albuterol/Ipratropium 3.0-0.5 MG/3 ML Neb Soln NEB PRN (20:24)
[2018-07-11] MEDS ORDERED: Promethazine 6.25 MG in Sodium Chloride 0.9% 50 ML IV PRN (20:24)
[2018-07-11] MEDS ORDERED: Acetaminophen/HYDROcodone 325-5 MG Tab PO PRN (20:24)
[2018-07-11] MEDS ORDERED: Acetaminophen 325 MG Tab PO PRN (20:24)
[2018-07-11] MEDS ORDERED: Temazepam 7.5 MG Cap PO PRN (20:24)
[2018-07-11] MEDS ORDERED: HYDROmorphone 1 MG/ML Syringe IVPUSH PRN (20:24)
[2018-07-11] MEDS ORDERED: LORazepam 2 MG/ML SDV IV PRN (20:24)
[2018-07-11] MEDS ORDERED: LORazepam 2 MG/ML SDV IVPUSH PRN ×3 (20:33→22:15)
[2018-07-11] MEDS ORDERED: hydrALAZINE 20 MG/ML SDV IVPUSH PRN (20:33)
[2018-07-11] MEDS ORDERED: Metoprolol Tartrate 5 MG/5 ML SDV IVPUSH PRN ×2 (20:33→20:34)
--- NOTE | 2018-07-11 20:38 | PCM.HP ---
H&P History of Present Illness - General Date of Service: 07/11/18 Admit Problem/Dx: Admission Diagnosis/Problem Admission Diagnosis/Problem GI bleed not requiring more than 4 units of blood in 24 hours, ICU, or surgery Source of Information: Patient, Family, Old Records, Provider, RN Notes Reviewed History Limitations: Reports: No Limitations - History of Present Illness Initial Comments - Free Text/Narative: This is a 57 yo male with past medical hx/o GERD, Hx/o Ventral Hernia, Anxiety, Depression and Chronic ETOH Use who comes in for evaluation of abdominal pain associated with nausea and black stools. He feels week and somewhat short of breath. He denies any chest pain but states he almost passed out last night. He carries a hx/o upper GI bleed about a year ago and was found to have a gastric ulcer about 1-1.5 cm in diameter on EGD. Patient still takes his PPI and Carafate but drinks considerable amount of alcohol everyday. His initial work up in ED shows a CBC remarkable for WBC of 12.65, RBC of 3.39, Hgb of 6.5, Hct of 23, MCV of 67.8, MCH of 19.2, MCHC of 28.3, RDW of 52.8, Platelet count of 365, Neutrophils of 81.3%, Lymphocytes of 8.1%, and Monocyte # of 1.26. His chemistry is significant for CO2 of 17, AG of 24.7, Cr of 1.1, BS of 150, Mg of 1.6, AST of 38, and Albumin of 3.2. His ELDER level is 0.01. His Abdominal/Pelvis CT scan report reads moderately large hiatal hernia seen on noted on prior CT exam. Nothing acute is identified on non-contrast CT study. Patient is being admitted for UGI Bleed likely from PUD. He is full code. - Related Data Allergies/Adverse Reactions: Allergies Allergy/AdvReac Type Severity Reaction Status Date / Time No Known Allergies Allergy Verified 07/11/18 15:55 Home Medications: Home Meds Omeprazole 40 mg PO DAILY #56 cap.sr 09/17/17 [Rx] Sucralfate [Carafate] 1 gm PO QID #224 tablet 09/17/17 [Rx] Multivitamin [Multi-Vitamin Daily] 1 tab PO DAILY 07/11/18 [History] Molina-3/DHA/Epa/Fish Oil [Molina-3 Fish Oil 1,000 MG Sfgl] 1,000 mg PO DAILY [History] Past Medical History HEENT History: Reports: Impaired Vision, Other (See Below) Other HEENT History: pt states that he wears glasses for reading. Cardiovascular History: Reports: None Respiratory History: Reports: None Gastrointestinal History: Reports: GERD, GI Bleed, Other (See Below) Other Gastrointestinal History: Last GI bleed was in August 2017 Genitourinary History: Reports: Renal Calculus Musculoskeletal History: Reports: Arthritis Neurological History: Reports: None Psychiatric History: Reports: Anxiety, Depression Endocrine/Metabolic History: Reports: Obesity/BMI 30+ Hematologic History: Reports: Blood Transfusion(s) Other Hematologic History: pt currently admitted for gi bleed with a hgb of 7.6 and is receiving 2 units of blood. Immunologic History: Reports: None Oncologic (Cancer) History: Reports: None Dermatologic History: Reports: None - Infectious Disease History Infectious Disease History: Reports: Shingles - Past Surgical History Head Surgeries/Procedures: Reports: None GI Surgical History: Reports: Hernia, Abdominal - History Comment History Comment: takes pill for arthritis every day but doesn't remember name of it- rx Social & Family History - Family History Family Medical History: Noncontributory - Tobacco Use Smoking Status *Q: Former Smoker Used Tobacco, but Quit: Yes Month/Year Tobacco Last Used: 8 months ago Tobacco Use Comment: Patient used to smoke about a pack a week and quit about 8 months ago - Caffeine Use Caffeine Use: Reports: Coffee Caffeine Use Comment: Drinks about a cup of coffee per two weeks or so - Alcohol Use Date of Last Drink: 07/09/18 Time of Last Drink: 17:00 - Recreational Drug Use Recreational Drug Use: No H&P Review of Systems - Review of Systems: Review Of Systems: See Below General: Denies: Fever, Chills, Malaise, Weakness HEENT: Reports: No Symptoms Pulmonary: Reports: Shortness of Breath. Denies: Pleuritic Chest Pain, Cough, Sputum, Hemoptysis Cardiovascular: Denies: Chest Pain, Dyspnea on Exertion, Edema, Lightheadedness , Syncope, Claudication, Blood Pressure Problem Gastrointestinal: Reports: Abdominal Pain, Black Stool, Nausea, Vomiting Genitourinary: Reports: No Symptoms Musculoskeletal: Reports: No Symptoms Skin: Denies: Cyanosis, Pallor, Diaphoresis, Bruising, Rash, Erythema Psychiatric: Denies: Depression, Anxiety, Agitation, Hallucinations Neurological: Denies: Confusion, Dizziness, Seizure, Difficulty Walking, Weakness, Gait Disturbance Hematologic/Lymphatic: Reports: No Symptoms Immunologic: Reports: No Symptoms Exam - Exam Exam: See Below - Vital Signs Vital Signs: Last Vital Signs Temp 36.0 C 07/11/18 15:52 Pulse 122 H 07/11/18 15:52 Resp 24 H 07/11/18 15:52 BP 137/81 07/11/18 15:52 Pulse Ox 98 07/11/18 15:52 Weight: 83.642 kg - Exam General: Alert, Oriented, Cooperative. No: Mild Distress HEENT: Conjunctiva Clear, EOMI, Hearing Intact, Mucosa Moist & [place], Nares Patent, Normal Nasal Septum, Posterior Pharynx Clear, Pupils Equal, Pupils Reactive Neck: Supple, Trachea Midline Lungs: Clear to Auscultation, Normal Respiratory Effort Cardiovascular: Regular Rate, Regular Rhythm GI/Abdominal Exam: Normal Bowel Sounds, Soft, No Organomegaly, No Distention, No Abnormal Bruit, No Mass, Tender (epigastric ) (Male) Exam: Deferred Rectal (Males) Exam: Deferred Back Exam: Normal Inspection, Full Range of Motion Extremities: Normal Inspection, Normal Range of Motion, Non-Tender, No Pedal Edema, Normal Capillary Refill Peripheral Pulses: 2+: Posterior Tibial (L), Posterior Tibial (R), Dorsalis Pedis (L), Dorsalis Pedis (R) Skin: Warm, Dry, Intact Neuro Extensive - Mental Status: Oriented x3, Normal Cognition, Memory Intact Neuro Extensive - Motor, Sensory, Reflexes: CN II-XII Intact, Normal Gait Psychiatric: Alert, Normal Affect, Normal Mood - Patient Data Lab Results Last 24 hrs: Laboratory Results - last 24 hr 07/11/18 07/11/18 07/11/18 Range/Units 16:05 16:05 16:05 WBC 12.65 H (4.23-9.07) K/mm3 RBC 3.39 L (4.63-6.08) M/mm3 Hgb 6.5 L* (13.7-17.5) gm/L Hct 23.0 L (40.1-51.0) % MCV 67.8 L (79.0-92.2) fl MCH 19.2 L (25.7-32.2) pg MCHC 28.3 L (32.2-35.5) g/dl RDW Std Deviation 52.8 H (35.1-43.9) fL Plt Count 365 H (163-337) K/mm3 MPV 10.2 (9.4-12.3) fl Neut % (Auto) 81.3 H (34.0-67.9) % Lymph % (Auto) 8.1 L (21.8-53.1) % [place] % (Auto) 10.0 (5.3-12.2) % Eos % (Auto) 0 L (0.8-7.0) Baso % (Auto) 0.3 (0.1-1.2) % Neut # (Auto) 10.29 H (1.78-5.38) K/mm3 Lymph # (Auto) 1.02 L (1.32-3.57) K/mm3 [place] # (Auto) 1.26 H (0.30-0.82) K/mm3 Eos # (Auto) 0.00 L (0.04-0.54) K/mm3 Baso # (Auto) 0.04 (0.01-0.08) K/mm3 Manual Slide Review Abnormal smear Sodium 139 (136-145) mEq/L Potassium 3.7 (3.5-5.1) mEq/L Chloride 101 (98-107) mEq/L Carbon Dioxide 17 L (21-32) mEq/L Anion Gap 24.7 H (5-15) BUN 24 H (7-18) mg/dL Creatinine 1.1 (0.7-1.3) mg/dL Est Cr Clr Drug Dosing 66.86 mL/min Estimated GFR (MDRD) > 60 (>60) mL/min BUN/Creatinine Ratio 21.8 H (14-18) Glucose 150 H (74-106) mg/dL Calcium 9.2 (8.5-10.1) mg/dL Magnesium 1.6 L (1.8-2.4) mg/dl Total Bilirubin 0.6 (0.2-1.0) mg/dL AST 38 H (15-37) U/L ALT 35 (16-63) U/L Alkaline Phosphatase 96 (46-116) U/L Total Protein 6.9 (6.4-8.2) g/dl Albumin 3.2 L (3.4-5.0) g/dl Globulin 3.7 gm/dL Albumin/Globulin Ratio 0.9 L (1-2) Lipase 368 (73-393) U/L Ethyl Alcohol (0.00) gm% Blood Type O POSITIVE Gel Antibody Screen Negative Crossmatch See Detail 07/11/18 Range/Units 18:08 WBC (4.23-9.07) K/mm3 RBC (4.63-6.08) M/mm3 Hgb (13.7-17.5) gm/L Hct (40.1-51.0) % MCV (79.0-92.2) fl MCH (25.7-32.2) pg MCHC (32.2-35.5) g/dl RDW Std Deviation (35.1-43.9) fL Plt Count (163-337) K/mm3 MPV (9.4-12.3) fl Neut % (Auto) (34.0-67.9) % Lymph % (Auto) (21.8-53.1) % [place] % (Auto) (5.3-12.2) % Eos % (Auto) (0.8-7.0) Baso % (Auto) (0.1-1.2) % Neut # (Auto) (1.78-5.38) K/mm3 Lymph # (Auto) (1.32-3.57) K/mm3 [place] # (Auto) (0.30-0.82) K/mm3 Eos # (Auto) (0.04-0.54) K/mm3 Baso # (Auto) (0.01-0.08) K/mm3 Manual Slide Review Sodium (136-145) mEq/L Potassium (3.5-5.1) mEq/L Chloride (98-107) mEq/L Carbon Dioxide (21-32) mEq/L Anion Gap (5-15) BUN (7-18) mg/dL Creatinine (0.7-1.3) mg/dL Est Cr Clr Drug Dosing mL/min Estimated GFR (MDRD) (>60) mL/min BUN/Creatinine Ratio (14-18) Glucose (74-106) mg/dL Calcium (8.5-10.1) mg/dL Magnesium (1.8-2.4) mg/dl Total Bilirubin (0.2-1.0) mg/dL AST (15-37) U/L ALT (16-63) U/L Alkaline Phosphatase (46-116) U/L Total Protein (6.4-8.2) g/dl Albumin (3.4-5.0) g/dl Globulin gm/dL Albumin/Globulin Ratio (1-2) Lipase (73-393) U/L Ethyl Alcohol 0.01 (0.00) gm% Blood Type Gel Antibody Screen Crossmatch Result Diagrams: 07/12/18 05:25 07/12/18 05:25 Problem List Initiated/Reviewed/Updated: Yes Orders Last 24hrs: Active Orders 24 hr Category Date Time Status Patient Status [ADT] Routine ADT 07/11/18 18:41 Active Antiembolic Devices [RC] PER UNIT ROUTINE Care 07/11/18 20:25 Ordered Height and Weight [RC] DAILY Care 07/11/18 20:24 Ordered Intake and Output [RC] QSHIFT Care 07/11/18 20:24 Ordered Notify Provider Consults [RC] ASDIRECTED Care 07/11/18 20:26 Ordered Oxygen Therapy [RC] PRN Care 07/11/18 20:24 Ordered Oxygen Therapy [RC] PRN Care 07/11/18 20:36 Ordered Peripheral IV Care [RC] . DIRECTED Care 07/11/18 16:24 Active RT Aerosol Therapy [RC] ASDIRECTED Care 07/11/18 20:25 Ordered Up ad Neli [RC] ASDIRECTED Care 07/11/18 20:24 Ordered VTE/DVT Education [RC] PER UNIT ROUTINE Care 07/11/18 20:24 Ordered VTE/DVT Education [RC] PER UNIT ROUTINE Care 07/11/18 20:36 Ordered Vital Signs [RC] Q4H Care 07/11/18 20:24 Ordered Vital Signs [RC] Q4H Care 07/11/18 20:36 Ordered Consult to Case Management/Structural Technician [CONS] Cons 07/11/18 20:24 Ordered Routine Consult to Physician [CONS] Routine Cons 07/11/18 20:24 Ordered Nothing per Oral After Midnight Diet [DIET] Diet 07/11/18 Dinner Ordered Abdomen 1V Upright [CR] Stat Exams 07/11/18 16:23 Taken Abdomen Pelvis wo Cont [CT] Stat Exams 07/11/18 17:32 Taken BASIC METABOLIC PANEL,BMP [CHEM] AM Lab 07/12/18 05:11 Ordered CBC WITH AUTO DIFF [HEME] AM Lab 07/12/18 05:11 Ordered H.PYLORI ANTIGEN, STOOL [OP] Stat Lab 07/11/18 20:27 Ordered MAGNESIUM [CHEM] AM Lab 07/12/18 05:11 Ordered RED BLOOD CELLS LP [BBK] Stat Lab 07/11/18 16:05 Results TYPE AND SCREEN [BBK] Stat Lab 07/11/18 16:05 Results Acetaminophen [Tylenol] Med 07/11/18 20:24 Ordered 650 mg PO Q4H PRN Acetaminophen/HYDROcodone [Baker 325-5 MG] Med 07/11/18 20:24 Ordered 1 tab PO Q4H PRN Albuterol/Ipratropium [DuoNeb 3.0-0.5 MG/3 ML] Med 07/11/18 20:24 Ordered 3 ml NEB Q4H PRN HYDROmorphone [Dilaudid] Med 07/11/18 20:24 Ordered 0.5 mg IVPUSH Q2H PRN LORazepam [Ativan] Med 07/11/18 20:24 Ordered 0.5 mg IV Q6H PRN LORazepam [Ativan] Med 07/11/18 20:33 Ordered 2 mg IVPUSH Q4H PRN LORazepam [Ativan] Med 07/11/18 20:35 Ordered 2 mg IVPUSH Q4H PRN Metoprolol Tartrate [Lopressor] Med 07/11/18 20:33 Ordered 5 mg IVPUSH Q4H PRN Metoprolol Tartrate [Lopressor] Med 07/11/18 20:34 Ordered 5 mg IVPUSH Q4H PRN Multivitamin Med 07/12/18 09:00 Ordered 1 tab PO DAILY Molina-3/DHA/Epa/Fish Oil [Molina-3 Fish Oil 1,000 MG Med 07/12/18 09:00 Ordered Sfgl] 1,000 mg PO DAILY Omeprazole Med 07/12/18 09:00 Ordered 40 mg PO DAILY Ondansetron [Zofran] Med 07/11/18 20:24 Ordered 4 mg IV Q6H PRN Pantoprazole [ProTONIX IV] 80 mg Med 07/11/18 16:30 Active Sodium Chloride 0.9% [Normal Saline] 100 ml IV Q10H Pharmacy to Dose - Magnesium R [Pharmacy to Dose - Med 07/11/18 20:45 Ordered Magnesium Replacement] 1 dose .XX ASDIRECTED Pharmacy to Dose - Magnesium R [Pharmacy to Dose - Med 07/11/18 20:45 Ordered Magnesium Replacement] 1 dose .XX ASDIRECTED Pharmacy to Dose - Potassium R [Pharmacy to Dose - Med 07/11/18 20:45 Ordered Potassium Replacement] 1 dose .XX ASDIRECTED Pharmacy to Dose - Potassium R [Pharmacy to Dose - Med 07/11/18 20:45 Ordered Potassium Replacement] 1 dose .XX ASDIRECTED Promethazine [Phenergan] 6.25 mg Med 07/11/18 20:24 Ordered Sodium Chloride 0.9% [Normal Saline] 50 ml IV Q6H Sodium Chloride 0.9% [Normal Saline] 1,000 ml Med 07/11/18 16:30 Active IV ASDIRECTED Sodium Chloride 0.9% [Saline Flush] Med 07/11/18 16:23 Active 10 ml FLUSH ASDIRECTED PRN Sucralfate [Carafate] Med 07/11/18 21:00 Ordered 1 gm PO QID Temazepam [Restoril] Med 07/11/18 20:24 Ordered 7.5 mg PO BEDTIME PRN hydrALAZINE [Apresoline] Med 07/11/18 20:33 Ordered 20 mg IVPUSH Q4H PRN ED Antiemetic Medication Reflex [OM.PC] Stat Ot 07/11/18 16:23 Ordered Peripheral IV Insertion Adult [OM.PC] Stat Ot 07/11/18 16:23 Ordered Sequential Compression Device [OM.PC] Per Unit Routine Ot 07/11/18 20:24 Ordered Transfuse PRBC [Transfuse Red Blood Cells] [COMM] Stat Ot 07/11/18 17:36 Ordered Resuscitation Status Routine Resus Stat 07/11/18 20:24 Ordered Medication Orders Acetaminophen (Tylenol) 650 mg PO Q4H PRN PRN Reason: Pain (Mild 1-3)/fever Hydrocodone Bitart/Acetaminophen (Baker 325-5 Mg) 1 tab PO Q4H PRN PRN Reason: Pain (moderate 4-6) Albuterol/Ipratropium (Duoneb 3.0-0.5 Mg/3 Ml) 3 ml NEB Q4H PRN PRN Reason: Shortness Of Breath/wheezing Hydralazine HCl (Apresoline) 20 mg IVPUSH Q4H PRN PRN Reason: Hypertension Hydromorphone HCl (Dilaudid) 0.5 mg IVPUSH Q2H PRN PRN Reason: Pain (severe 7-10) Pantoprazole Sodium 80 mg/ (Sodium Chloride) 100 mls @ 10 mls/hr IV Q10H [facility] Last Admin: 07/11/18 16:47 Dose: 10 mls/hr Sodium Chloride (Normal Saline) 1,000 mls @ 125 mls/hr IV ASDIRECTED [facility] Last Admin: 07/11/18 16:47 Dose: 125 mls/hr Promethazine HCl 6.25 mg/ (Sodium Chloride) 50.25 mls @ 100 mls/hr IV Q6H PRN PRN Reason: Nausea/Vomiting Lorazepam (Ativan) 0.5 mg IV Q6H PRN PRN Reason: Anxiety Lorazepam (Ativan) 2 mg IVPUSH Q4H PRN PRN Reason: Seizures Magnesium Sulfate (Pharmacy To Dose - Magnesium Replacement) 1 dose .XX ASDIRECTED [facility] Metoprolol Tartrate (Lopressor) 5 mg IVPUSH Q4H PRN PRN Reason: Tachycardia Non-Formulary Medication (Multivitamin) 1 tab PO DAILY [facility] Stop: 07/14/18 09:00 Non-Formulary Medication (Molina-3/Dha/Epa/Fish Oil [Molina-3 Fish Oil 1,000 Mg Sfgl]) 1,000 mg PO DAILY [facility] Stop: 07/14/18 09:00 Non-Formulary Medication (Omeprazole) 40 mg PO DAILY [facility] Stop: 07/14/18 09:00 Ondansetron HCl (Zofran) 4 mg IV Q6H PRN PRN Reason: Nausea/Vomiting Potassium Chloride (Pharmacy To Dose - Potassium Replacement) 1 dose .XX ASDIRECTED [facility] Sodium Chloride (Saline Flush) 10 ml FLUSH ASDIRECTED PRN PRN Reason: Keep Vein Open Last Admin: 07/11/18 16:50 Dose: 10 ml Sucralfate (Carafate) 1 gm PO QIDACANDBED MAXIMILIANO Temazepam (Restoril) 7.5 mg PO BEDTIME PRN PRN Reason: Sleep Assessment/Plan Comment:: Assessment/Plan: Acute: UGI Bleed/Melena - Likely 2/2 PUD - Carries a x/o gastric Ulcer approximately 1-2.5 cm in diameter S/p EGD in performed by Dr. Alcantara - He still on PPI and Carafate but drinks significant amount of ETOH - Reports epigastric pain, nausea and black stools - Hgb 6.5 on presentation - Has no gone to the bathroom since admission - Currently receiving 1 unit of PRBC (2 units ordered); we will add 1 more unit; his baseline is 14-15 grams - Continue Protonix drip - GS consult fro further eval; spoke to Dr. Mabry--> she will come and see him in AM unless he becomes unstable overnight Symptomatic Anemia - 2/2 UGI Bleed - 3 units of PRBCs; currently receiving volume resuscitation with fluids and PRBC - He is clinically stable - If he becomes unstable--> transfer to the unit and contact Dr. Mabry and Attending right away Hx/o Gastric Ulcer - 1-1.5 cm in diameter - Still on PPI and Carafate Chronic: GERD Hx/o Ventral Hernia Anxiety Depression ETOH Use, ELDER level 0.01 Plan: Admit to [facility] Routine AM Labs CIWAA Protocol Dr. Mabry consulted NPO after midnight Protonix drip and IV fluids SW/CM for d/c planning Code Status:1 Meet up with his children at bedside. Updated them about his likely diagnosis, clinical status and treatment plan. They were informed endoscopic procedure will be determined by the [id number] inpatient if needed.
[2018-07-11] MEDS ORDERED: Potassium Chloride 100 ML IV SCH (21:00)
[2018-07-11] MEDS ORDERED: Magnesium Sulfate/Water 50 ML IV ONE ×2 (21:00→23:00)
[2018-07-11] MEDS ORDERED: Sodium Chloride 0.9% 1,000 ML IV ONE (21:37)
[2018-07-11] MEDS: Sucralfate 1 GM Tab PO SCH (22:08)
[2018-07-11] MEDS ORDERED: chlordiazePOXIDE 25 MG Cap PO PRN (22:16)
[2018-07-11] MEDS ORDERED: cloNIDine 0.1 MG Tab PO PRN (22:16)
[2018-07-11] MEDS ORDERED: Haloperidol Lactate 5 MG/ML SDV IM PRN (22:16)
[2018-07-11] MEDS ORDERED: Thiamine 100 MG in Sodium Chloride 0.9% 50 ML IV ONE (22:16)
[2018-07-11] MEDS ORDERED: Folic Acid 50 MG/10 ML MDV SUBCUT ONE (22:16)
[2018-07-11] MEDS ORDERED: Thiamine 100 MG Tab PO ONE (23:28)
[2018-07-11] MEDS ORDERED: Folic Acid 1 MG Tab PO ONE (23:29)
[2018-07-11] MEDS: Potassium Chloride 100 ML IV SCH (23:47)
[2018-07-12] MEDS: Potassium Chloride 100 ML IV SCH ×3 (01:31→04:31)
[2018-07-12] MEDS: Pantoprazole 80 MG in Sodium Chloride 0.9% 100 ML IV SCH ×2 (02:42→14:46)
[2018-07-12] MEDS: Sucralfate 1 GM Tab PO SCH ×4 (06:59→22:33)
--- NOTE | 2018-07-12 07:26 | PCM.CONS ---
H&P History of Present Illness - General Date of Service: 07/12/18 Admit Problem/Dx: Admission Diagnosis/Problem Admission Diagnosis/Problem GI bleed not requiring more than 4 units of blood in 24 hours, ICU, or surgery Source of Information: Patient, Provider History Limitations: Reports: No Limitations - History of Present Illness Initial Comments - Free Text/Narative: Patient is 57 y/o gentleman who presents with 3-4 days of dark colored stools. He has a history of peptic ulcer disease in the past. This was approximately 1 year ago. Since that time he has continued on his PPI and Carafate therapy and denies having any symptoms. He drinks 3-4 shots of vodka nightly. He has had nausea recently. He denies any abdominal pain. - Related Data Allergies/Adverse Reactions: Allergies Allergy/AdvReac Type Severity Reaction Status Date / Time No Known Allergies Allergy Verified 07/11/18 15:55 Home Medications: Home Meds RX: Omeprazole 40 mg PO DAILY #56 cap.sr 09/17/17 [Rx] RX: Sucralfate [Carafate] 1 gm PO QID #224 tablet 09/17/17 [Rx] Multivitamin [Multi-Vitamin Daily] 1 tab PO DAILY 07/11/18 [History] [place]-3/DHA/Epa/Fish Oil [[place]-3 Fish Oil 1,000 MG Sfgl] 1,000 mg PO DAILY [History] Past Medical History HEENT History: Reports: Impaired Vision, Other (See Below) Other HEENT History: pt states that he wears glasses for reading. Cardiovascular History: Reports: None Respiratory History: Reports: None Gastrointestinal History: Reports: GERD, GI Bleed, Other (See Below) Other Gastrointestinal History: Last GI bleed was in August 2017 Genitourinary History: Reports: Renal Calculus Musculoskeletal History: Reports: Arthritis Neurological History: Reports: None Psychiatric History: Reports: Anxiety, Depression Endocrine/Metabolic History: Reports: Obesity/BMI 30+ Hematologic History: Reports: Blood Transfusion(s) Other Hematologic History: pt currently admitted for gi bleed with a hgb of 7.6 and is receiving 2 units of blood. Immunologic History: Reports: None Oncologic (Cancer) History: Reports: None Dermatologic History: Reports: None - Infectious Disease History Infectious Disease History: Reports: Shingles - Past Surgical History Head Surgeries/Procedures: Reports: None GI Surgical History: Reports: Hernia, Abdominal - History Comment History Comment: takes pill for arthritis every day but doesn't remember name of it- rx Social & Family History - Family History Cardiac: Reports: Hypertension - Tobacco Use Smoking Status *Q: Former Smoker Used Tobacco, but Quit: Yes Month/Year Tobacco Last Used: 8 months ago Tobacco Use Comment: Patient used to smoke about a pack a week and quit about 8 months ago - Caffeine Use Caffeine Use: Reports: Coffee Caffeine Use Comment: Drinks about a cup of coffee per two weeks or so - Alcohol Use Date of Last Drink: 07/09/18 Time of Last Drink: 17:00 - Recreational Drug Use Recreational Drug Use: No H&P Review of Systems - Review of Systems: Review Of Systems: See Below General: Reports: Fatigue HEENT: Reports: No Symptoms Pulmonary: Reports: Shortness of Breath Cardiovascular: Reports: No Symptoms Gastrointestinal: Reports: Melena, Nausea. Denies: Abdominal Pain Genitourinary: Reports: No Symptoms Musculoskeletal: Reports: No Symptoms Skin: Reports: No Symptoms Psychiatric: Reports: No Symptoms Neurological: Reports: Dizziness Hematologic/Lymphatic: Reports: No Symptoms Immunologic: Reports: No Symptoms Exam - Exam Exam: See Below - Vital Signs Vital Signs: Last Vital Signs Temp 37.0 C 07/12/18 02:47 Pulse 79 07/12/18 02:47 Resp 17 07/12/18 02:47 BP 145/85 H 07/12/18 02:47 Pulse Ox 97 07/12/18 02:47 Weight: 83.642 kg - Exam Quality Assessment: No: Supplemental Oxygen General: Alert, Oriented HEENT: Conjunctiva Clear, EOMI Neck: Supple Lungs: Clear to Auscultation, Normal Respiratory Effort Cardiovascular: Regular Rate, Regular Rhythm GI/Abdominal Exam: Soft, Non-Tender, No Distention Rectal (Males) Exam: Other (Normal external appearance, no visible hemorrhoid tissue.) Skin: Warm, Dry, Intact Neurological: Cranial Nerves Intact Neuro Extensive - Mental Status: Alert, Oriented x3 Psychiatric: Normal Affect - Patient Data Lab Results Last 24 hrs: Laboratory Results - last 24 hr 07/11/18 07/11/18 07/11/18 Range/Units 16:05 16:05 16:05 WBC 12.65 H (4.23-9.07) K/mm3 RBC 3.39 L (4.63-6.08) M/mm3 Hgb 6.5 L* (13.7-17.5) gm/L Hct 23.0 L (40.1-51.0) % MCV 67.8 L (79.0-92.2) fl MCH 19.2 L (25.7-32.2) pg MCHC 28.3 L (32.2-35.5) g/dl RDW Std Deviation 52.8 H (35.1-43.9) fL Plt Count 365 H (163-337) K/mm3 MPV 10.2 (9.4-12.3) fl Neut % (Auto) 81.3 H (34.0-67.9) % Lymph % (Auto) 8.1 L (21.8-53.1) % [place] % (Auto) 10.0 (5.3-12.2) % Eos % (Auto) 0 L (0.8-7.0) Baso % (Auto) 0.3 (0.1-1.2) % Neut # (Auto) 10.29 H (1.78-5.38) K/mm3 Lymph # (Auto) 1.02 L (1.32-3.57) K/mm3 [place] # (Auto) 1.26 H (0.30-0.82) K/mm3 Eos # (Auto) 0.00 L (0.04-0.54) K/mm3 Baso # (Auto) 0.04 (0.01-0.08) K/mm3 Manual Slide Review Abnormal smear Sodium 139 (136-145) mEq/L Potassium 3.7 (3.5-5.1) mEq/L Chloride 101 (98-107) mEq/L Carbon Dioxide 17 L (21-32) mEq/L Anion Gap 24.7 H (5-15) BUN 24 H (7-18) mg/dL Creatinine 1.1 (0.7-1.3) mg/dL Est Cr Clr Drug Dosing 66.86 mL/min Estimated GFR (MDRD) > 60 (>60) mL/min BUN/Creatinine Ratio 21.8 H (14-18) Glucose 150 H (74-106) mg/dL Calcium 9.2 (8.5-10.1) mg/dL Magnesium 1.6 L (1.8-2.4) mg/dl Total Bilirubin 0.6 (0.2-1.0) mg/dL AST 38 H (15-37) U/L ALT 35 (16-63) U/L Alkaline Phosphatase 96 (46-116) U/L Total Protein 6.9 (6.4-8.2) g/dl Albumin 3.2 L (3.4-5.0) g/dl Globulin 3.7 gm/dL Albumin/Globulin Ratio 0.9 L (1-2) Lipase 368 (73-393) U/L Ethyl Alcohol (0.00) gm% Blood Type O POSITIVE Gel Antibody Screen Negative Crossmatch See Detail 07/11/18 07/11/18 07/12/18 Range/Units 16:05 18:08 05:25 WBC 7.80 (4.23-9.07) K/mm3 RBC 3.97 L (4.63-6.08) M/mm3 Hgb 8.8 L (13.7-17.5) gm/L Hct 28.4 L (40.1-51.0) % MCV 71.5 L (79.0-92.2) fl MCH 22.2 L (25.7-32.2) pg MCHC 31.0 L (32.2-35.5) g/dl RDW Std Deviation 58.1 H (35.1-43.9) fL Plt Count 298 (163-337) K/mm3 MPV 10.8 (9.4-12.3) fl Neut % (Auto) 69.9 H (34.0-67.9) % Lymph % (Auto) 18.7 L (21.8-53.1) % [place] % (Auto) 9.7 (5.3-12.2) % Eos % (Auto) 0.8 (0.8-7.0) Baso % (Auto) 0.6 (0.1-1.2) % Neut # (Auto) 5.45 H (1.78-5.38) K/mm3 Lymph # (Auto) 1.46 (1.32-3.57) K/mm3 [place] # (Auto) 0.76 (0.30-0.82) K/mm3 Eos # (Auto) 0.06 (0.04-0.54) K/mm3 Baso # (Auto) 0.05 (0.01-0.08) K/mm3 Manual Slide Review Abnormal smear Sodium (136-145) mEq/L Potassium (3.5-5.1) mEq/L Chloride (98-107) mEq/L Carbon Dioxide (21-32) mEq/L Anion Gap (5-15) BUN (7-18) mg/dL Creatinine (0.7-1.3) mg/dL Est Cr Clr Drug Dosing mL/min Estimated GFR (MDRD) (>60) mL/min BUN/Creatinine Ratio (14-18) Glucose (74-106) mg/dL Calcium (8.5-10.1) mg/dL Magnesium (1.8-2.4) mg/dl Total Bilirubin (0.2-1.0) mg/dL AST (15-37) U/L ALT (16-63) U/L Alkaline Phosphatase (46-116) U/L Total Protein (6.4-8.2) g/dl Albumin (3.4-5.0) g/dl Globulin gm/dL Albumin/Globulin Ratio (1-2) Lipase (73-393) U/L Ethyl Alcohol 0.01 (0.00) gm% Blood Type Gel Antibody Screen Crossmatch See Detail 07/12/18 Range/Units 05:25 WBC (4.23-9.07) K/mm3 RBC (4.63-6.08) M/mm3 Hgb (13.7-17.5) gm/L Hct (40.1-51.0) % MCV (79.0-92.2) fl MCH (25.7-32.2) pg MCHC (32.2-35.5) g/dl RDW Std Deviation (35.1-43.9) fL Plt Count (163-337) K/mm3 MPV (9.4-12.3) fl Neut % (Auto) (34.0-67.9) % Lymph % (Auto) (21.8-53.1) % [place] % (Auto) (5.3-12.2) % Eos % (Auto) (0.8-7.0) Baso % (Auto) (0.1-1.2) % Neut # (Auto) (1.78-5.38) K/mm3 Lymph # (Auto) (1.32-3.57) K/mm3 [place] # (Auto) (0.30-0.82) K/mm3 Eos # (Auto) (0.04-0.54) K/mm3 Baso # (Auto) (0.01-0.08) K/mm3 Manual Slide Review Sodium 138 (136-145) mEq/L Potassium 4.3 (3.5-5.1) mEq/L Chloride 105 (98-107) mEq/L Carbon Dioxide 26 (21-32) mEq/L Anion Gap 11.3 (5-15) BUN 15 (7-18) mg/dL Creatinine 0.8 (0.7-1.3) mg/dL Est Cr Clr Drug Dosing 91.93 mL/min Estimated GFR (MDRD) > 60 (>60) mL/min BUN/Creatinine Ratio 18.8 H (14-18) Glucose 106 (74-106) mg/dL Calcium 8.2 L (8.5-10.1) mg/dL Magnesium 2.3 (1.8-2.4) mg/dl Total Bilirubin (0.2-1.0) mg/dL AST (15-37) U/L ALT (16-63) U/L Alkaline Phosphatase (46-116) U/L Total Protein (6.4-8.2) g/dl Albumin (3.4-5.0) g/dl Globulin gm/dL Albumin/Globulin Ratio (1-2) Lipase (73-393) U/L Ethyl Alcohol (0.00) gm% Blood Type Gel Antibody Screen Crossmatch Result Diagrams: 07/12/18 05:25 07/12/18 05:25 Consult PN Assessment/Plan Procedures: Procedures ANTINUCLEAR ANTIBODIES (01/10/17) ASSAY OF AMYLASE (12/05/17) ASSAY OF FERRITIN (01/10/17) ASSAY OF GGT (12/06/17) ASSAY OF IRON (02/21/17) ASSAY OF LIPASE (12/06/17) ASSAY OF MAGNESIUM (12/06/17) ASSAY OF NATRIURETIC PEPTIDE (11/05/17) ASSAY OF TRANSFERRIN (01/10/17) ASSAY OF TRIGLYCERIDES (12/06/17) ASSAY OF TROPONIN QUANT (12/06/17) BILIRUBIN DIRECT (12/06/17) BL SMEAR W/DIFF WBC COUNT (12/06/17) BLOOD TYPING SEROLOGIC ABO (01/12/17) BLOOD TYPING SEROLOGIC RH(D) (01/12/17) C-REACTIVE PROTEIN (12/05/17) CCP ANTIBODY (01/10/17) COMPATIBILITY TEST ANTIGLOB (01/12/17) COMPLETE CBC AUTOMATED (12/06/17) COMPLETE CBC W/AUTO DIFF WBC (12/05/17) COMPREHEN METABOLIC PANEL (12/06/17) CT ABD & PELVIS W/O CONTRAST (12/05/17) DRUG TEST PRSMV INSTRMNT (12/06/17) ECHO EXAM OF ABDOMEN (12/10/17) EMERGENCY DEPT VISIT (12/06/17) H PYLORI (C-13) BREATH (11/05/17) HELICOBACTER PYLORI ANTIBODY (01/10/17) HYDRATE IV INFUSION ADD-ON (12/06/17) MRI LUMBAR SPINE W/O DYE (12/20/16) RBC ANTIBODY SCREEN (01/12/17) RBC SED RATE AUTOMATED (01/10/17) RHEUMATOID FACTOR TEST QUAL (01/10/17) ROUTINE VENIPUNCTURE (12/06/17) THER/PROPH/DIAG INJ IV PUSH (12/06/17) URINALYSIS AUTO W/SCOPE (12/06/17) X-RAY BEND ONLY L-S SPINE (02/21/17) X-RAY EXAM ABDOMEN 2 VIEWS (12/06/17) X-RAY EXAM OF FINGER(S) (02/21/17) X-RAY EXAM OF FOREARM (07/02/17) X-RAY EXAM OF KNEE 3 (08/28/13) X-RAY EXAM OF PELVIS (02/21/17) X-RAY EXAM OF WRIST (05/25/17) (1) Upper GI bleeding SNOMED Code(s): 94700223 Code(s): K92.2 - GASTROINTESTINAL HEMORRHAGE, UNSPECIFIED Priority: High Current Visit: Yes Problem List Initiated/Reviewed/Updated: Yes Plan: 57-year-old gentleman with upper GI bleed - Plan for EGD with possible intervention. Risks of perforation were discussed , written consent was obtained - Nothing by mouth with IV fluids - Continue Protonix drip - Transfuse as needed - Medical management per primary Elisa Bright MD General Surgery
[2018-07-12] MEDS: Fish Oil/Omega-3 Fatty Acids 1 Gm Cap PO SCH (08:20)
[2018-07-12] MEDS: Multivitamins,Therapeutic Tab PO SCH (08:20)
[2018-07-12] MEDS ORDERED: Non-Formulary Medication 1 Each (Omeprazole 40 MG) PO SCH (09:00)
--- NOTE | 2018-07-12 09:13 | PCM.PN ---
- General Info Date of Service: 07/12/18 Admission Dx/Problem (Free Text): Admission Diagnosis/Problem Admission Diagnosis/Problem GI bleed not requiring more than 4 units of blood in 24 hours, ICU, or surgery Subjective Update: Follow Up Functional Status: Reports: Pain Controlled, Ambulating, Urinating. Denies: New Symptoms - Review of Systems General: Denies: Fever, Weakness, Fatigue, Malaise, Chills HEENT: Reports: No Symptoms Pulmonary: Denies: Shortness of Breath Cardiovascular: Denies: Chest Pain, Dyspnea on Exertion, Lightheadedness Gastrointestinal: Denies: Abdominal Pain, Nausea, Vomiting Genitourinary: Reports: No Symptoms Musculoskeletal: Reports: No Symptoms Skin: Reports: No Symptoms Neurological: Denies: Confusion, Dizziness, Difficulty Walking, Weakness, Gait Disturbance Psychiatric: Denies: Confusion, Anxiety, Agitation Systems Review Comment:: No overnight or acute issues. He rested well and no reports or rectal bleed. His Hgb has improved to 8.8. He has no complaints. - Patient Data Vitals - Most Recent: Last Vital Signs Temp 36.6 C 07/12/18 08:25 Pulse 77 07/12/18 08:25 Resp 16 07/12/18 08:25 BP 124/83 07/12/18 08:25 Pulse Ox 96 07/12/18 08:25 Weight - Most Recent: 83.642 kg I&O - Last 24 Hours: Intake & Output 07/11/18 07/12/18 07/12/18 22:59 06:59 14:59 Intake Total 281 2330 Balance 281 2330 Lab Results Last 24 Hours: Laboratory Results - last 24 hr 07/11/18 07/11/18 07/11/18 Range/Units 16:05 16:05 16:05 WBC 12.65 H (4.23-9.07) K/mm3 RBC 3.39 L (4.63-6.08) M/mm3 Hgb 6.5 L* (13.7-17.5) gm/L Hct 23.0 L (40.1-51.0) % MCV 67.8 L (79.0-92.2) fl MCH 19.2 L (25.7-32.2) pg MCHC 28.3 L (32.2-35.5) g/dl RDW Std Deviation 52.8 H (35.1-43.9) fL Plt Count 365 H (163-337) K/mm3 MPV 10.2 (9.4-12.3) fl Neut % (Auto) 81.3 H (34.0-67.9) % Lymph % (Auto) 8.1 L (21.8-53.1) % [place] % (Auto) 10.0 (5.3-12.2) % Eos % (Auto) 0 L (0.8-7.0) Baso % (Auto) 0.3 (0.1-1.2) % Neut # (Auto) 10.29 H (1.78-5.38) K/mm3 Lymph # (Auto) 1.02 L (1.32-3.57) K/mm3 [place] # (Auto) 1.26 H (0.30-0.82) K/mm3 Eos # (Auto) 0.00 L (0.04-0.54) K/mm3 Baso # (Auto) 0.04 (0.01-0.08) K/mm3 Manual Slide Review Abnormal smear Sodium 139 (136-145) mEq/L Potassium 3.7 (3.5-5.1) mEq/L Chloride 101 (98-107) mEq/L Carbon Dioxide 17 L (21-32) mEq/L Anion Gap 24.7 H (5-15) BUN 24 H (7-18) mg/dL Creatinine 1.1 (0.7-1.3) mg/dL Est Cr Clr Drug Dosing 66.86 mL/min Estimated GFR (MDRD) > 60 (>60) mL/min BUN/Creatinine Ratio 21.8 H (14-18) Glucose 150 H (74-106) mg/dL Hemoglobin A1c (4.50-6.20) % Calcium 9.2 (8.5-10.1) mg/dL Magnesium 1.6 L (1.8-2.4) mg/dl Total Bilirubin 0.6 (0.2-1.0) mg/dL AST 38 H (15-37) U/L ALT 35 (16-63) U/L Alkaline Phosphatase 96 (46-116) U/L Total Protein 6.9 (6.4-8.2) g/dl Albumin 3.2 L (3.4-5.0) g/dl Globulin 3.7 gm/dL Albumin/Globulin Ratio 0.9 L (1-2) Lipase 368 (73-393) U/L Ethyl Alcohol (0.00) gm% Blood Type O POSITIVE Gel Antibody Screen Negative Crossmatch See Detail 07/11/18 07/11/18 07/12/18 Range/Units 16:05 18:08 05:25 WBC 7.80 (4.23-9.07) K/mm3 RBC 3.97 L (4.63-6.08) M/mm3 Hgb 8.8 L (13.7-17.5) gm/L Hct 28.4 L (40.1-51.0) % MCV 71.5 L (79.0-92.2) fl MCH 22.2 L (25.7-32.2) pg MCHC 31.0 L (32.2-35.5) g/dl RDW Std Deviation 58.1 H (35.1-43.9) fL Plt Count 298 (163-337) K/mm3 MPV 10.8 (9.4-12.3) fl Neut % (Auto) 69.9 H (34.0-67.9) % Lymph % (Auto) 18.7 L (21.8-53.1) % [place] % (Auto) 9.7 (5.3-12.2) % Eos % (Auto) 0.8 (0.8-7.0) Baso % (Auto) 0.6 (0.1-1.2) % Neut # (Auto) 5.45 H (1.78-5.38) K/mm3 Lymph # (Auto) 1.46 (1.32-3.57) K/mm3 [place] # (Auto) 0.76 (0.30-0.82) K/mm3 Eos # (Auto) 0.06 (0.04-0.54) K/mm3 Baso # (Auto) 0.05 (0.01-0.08) K/mm3 Manual Slide Review Abnormal smear Sodium (136-145) mEq/L Potassium (3.5-5.1) mEq/L Chloride (98-107) mEq/L Carbon Dioxide (21-32) mEq/L Anion Gap (5-15) BUN (7-18) mg/dL Creatinine (0.7-1.3) mg/dL Est Cr Clr Drug Dosing mL/min Estimated GFR (MDRD) (>60) mL/min BUN/Creatinine Ratio (14-18) Glucose (74-106) mg/dL Hemoglobin A1c (4.50-6.20) % Calcium (8.5-10.1) mg/dL Magnesium (1.8-2.4) mg/dl Total Bilirubin (0.2-1.0) mg/dL AST (15-37) U/L ALT (16-63) U/L Alkaline Phosphatase (46-116) U/L Total Protein (6.4-8.2) g/dl Albumin (3.4-5.0) g/dl Globulin gm/dL Albumin/Globulin Ratio (1-2) Lipase (73-393) U/L Ethyl Alcohol 0.01 (0.00) gm% Blood Type Gel Antibody Screen Crossmatch See Detail 07/12/18 07/12/18 Range/Units 05:25 05:25 WBC (4.23-9.07) K/mm3 RBC (4.63-6.08) M/mm3 Hgb (13.7-17.5) gm/L Hct (40.1-51.0) % MCV (79.0-92.2) fl MCH (25.7-32.2) pg MCHC (32.2-35.5) g/dl RDW Std Deviation (35.1-43.9) fL Plt Count (163-337) K/mm3 MPV (9.4-12.3) fl Neut % (Auto) (34.0-67.9) % Lymph % (Auto) (21.8-53.1) % [place] % (Auto) (5.3-12.2) % Eos % (Auto) (0.8-7.0) Baso % (Auto) (0.1-1.2) % Neut # (Auto) (1.78-5.38) K/mm3 Lymph # (Auto) (1.32-3.57) K/mm3 [place] # (Auto) (0.30-0.82) K/mm3 Eos # (Auto) (0.04-0.54) K/mm3 Baso # (Auto) (0.01-0.08) K/mm3 Manual Slide Review Sodium 138 (136-145) mEq/L Potassium 4.3 (3.5-5.1) mEq/L Chloride 105 (98-107) mEq/L Carbon Dioxide 26 (21-32) mEq/L Anion Gap 11.3 (5-15) BUN 15 (7-18) mg/dL Creatinine 0.8 (0.7-1.3) mg/dL Est Cr Clr Drug Dosing 91.93 mL/min Estimated GFR (MDRD) > 60 (>60) mL/min BUN/Creatinine Ratio 18.8 H (14-18) Glucose 106 (74-106) mg/dL Hemoglobin A1c 6.00 (4.50-6.20) % Calcium 8.2 L (8.5-10.1) mg/dL Magnesium 2.3 (1.8-2.4) mg/dl Total Bilirubin (0.2-1.0) mg/dL AST (15-37) U/L ALT (16-63) U/L Alkaline Phosphatase (46-116) U/L Total Protein (6.4-8.2) g/dl Albumin (3.4-5.0) g/dl Globulin gm/dL Albumin/Globulin Ratio (1-2) Lipase (73-393) U/L Ethyl Alcohol (0.00) gm% Blood Type Gel Antibody Screen Crossmatch Med Orders - Current: Current Medications Acetaminophen (Tylenol) 650 mg PO Q4H PRN PRN Reason: Pain (Mild 1-3)/fever Hydrocodone Bitart/Acetaminophen ([place] 325-5 Mg) 1 tab PO Q4H PRN PRN Reason: Pain (moderate 4-6) Albuterol/Ipratropium (Duoneb 3.0-0.5 Mg/3 Ml) 3 ml NEB Q4H PRN PRN Reason: Shortness Of Breath/wheezing Chlordiazepoxide HCl (Librium) 25 mg PO Q8H PRN PRN Reason: Withdrawal Symptoms Clonidine HCl (Catapres) 0.1 mg PO Q4H PRN PRN Reason: Agitation Fish Oil (Fish Oil) 1 gm PO DAILY MAXIMILIANO Stop: 07/14/18 09:00 Last Admin: 07/12/18 08:20 Dose: Not Given Haloperidol Lactate (Haldol) 2 mg IM Q4H PRN PRN Reason: Agitation Hydralazine HCl (Apresoline) 20 mg IVPUSH Q4H PRN PRN Reason: Hypertension Hydromorphone HCl (Dilaudid) 0.5 mg IVPUSH Q2H PRN PRN Reason: Pain (severe 7-10) Pantoprazole Sodium 80 mg/ (Sodium Chloride) 100 mls @ 10 mls/hr IV Q10H [facility] Last Admin: 07/12/18 02:42 Dose: 10 mls/hr Promethazine HCl 6.25 mg/ (Sodium Chloride) 50.25 mls @ 100 mls/hr IV Q6H PRN PRN Reason: Nausea/Vomiting Sodium Chloride (Normal Saline) 1,000 mls @ 50 mls/hr IV ASDIRECTED [facility] Lorazepam (Ativan) 0.5 mg IV Q6H PRN PRN Reason: Anxiety Lorazepam (Ativan) 2 mg IVPUSH Q4H PRN PRN Reason: Seizures Lorazepam (Ativan) 0 mg IVPUSH Q4H PRN; Protocol PRN Reason: Withdrawal Symptoms Magnesium Sulfate (Pharmacy To Dose - Magnesium Replacement) 1 dose .XX ASDIRECTED [facility] Metoprolol Tartrate (Lopressor) 5 mg IVPUSH Q4H PRN PRN Reason: Tachycardia Multivitamins (Thera) 1 each PO DAILY [facility] Stop: 07/14/18 09:00 Last Admin: 07/12/18 08:20 Dose: Not Given Ondansetron HCl (Zofran) 4 mg IV Q6H PRN PRN Reason: Nausea/Vomiting Potassium Chloride (Pharmacy To Dose - Potassium Replacement) 1 dose .XX ASDIRECTED [facility] Sodium Chloride (Saline Flush) 10 ml FLUSH ASDIRECTED PRN PRN Reason: Keep Vein Open Last Admin: 07/11/18 16:50 Dose: 10 ml Sucralfate (Carafate) 1 gm PO QIDACANDBED [facility] Last Admin: 07/12/18 06:59 Dose: Not Given Temazepam (Restoril) 7.5 mg PO BEDTIME PRN PRN Reason: Sleep Discontinued Medications Folic Acid (Folic Acid) 1 mg SUBCUT ONETIME ONE Stop: 07/11/18 22:17 Last Admin: 07/11/18 23:31 Dose: Not Given Folic Acid (Folic Acid) 1 mg PO ONETIME ONE Stop: 07/11/18 23:30 Last Admin: 07/11/18 23:44 Dose: 1 mg Hydromorphone HCl (Dilaudid) 1 mg IVPUSH ONETIME ONE Stop: 07/11/18 16:25 Last Admin: 07/11/18 16:46 Dose: 1 mg Sodium Chloride (Normal Saline) 1,000 mls @ 125 mls/hr IV ASDIRECTED [facility] Stop: 07/12/18 21:00 Last Admin: 07/11/18 16:47 Dose: 125 mls/hr Sodium Chloride (Normal Saline) 1,000 mls @ 999 mls/hr IV ONETIME ONE Stop: 07/11/18 22:37 Last Admin: 07/11/18 22:13 Dose: 999 mls/hr Magnesium Sulfate (Magnesium Sulfate 2 Gm In Water 50 Ml) 50 mls @ 25 mls/hr IV ONETIME ONE Stop: 07/12/18 00:59 Last Admin: 07/12/18 02:51 Dose: 25 mls/hr Potassium Chloride (Kcl 10 Meq In Water 100 Ml) 100 mls @ 100 mls/hr IV Q1H [facility] Stop: 07/12/18 03:29 Last Admin: 07/12/18 04:31 Dose: 70 mls/hr Thiamine HCl 100 mg/ Sodium (Chloride) 51 mls @ 100 mls/hr IV ONETIME ONE Stop: 07/11/18 22:46 Last Admin: 07/11/18 23:31 Dose: Not Given Non-Formulary Medication (Omeprazole) 40 mg PO DAILY [facility] Stop: 07/14/18 09:00 Ondansetron HCl (Zofran) 4 mg IVPUSH ONETIME ONE Stop: 07/11/18 16:24 Last Admin: 07/11/18 16:42 Dose: 4 mg Pantoprazole Sodium (Protonix Iv) 80 mg IVPUSH BOLUS ONE Stop: 07/11/18 16:25 Last Admin: 07/11/18 16:44 Dose: 80 mg Thiamine HCl (Vitamin B-1) 100 mg PO ONETIME ONE Stop: 07/11/18 23:29 Last Admin: 07/11/18 23:44 Dose: 100 mg - Exam General: Alert, Oriented, Cooperative, No Acute Distress HEENT: Pupils Equal, Pupils Reactive, EOMI, Mucous Membr. Moist/[place] Neck: Supple Lungs: Clear to Auscultation, Normal Respiratory Effort Cardiovascular: Regular Rate, Regular Rhythm GI/Abdominal Exam: Normal Bowel Sounds, Soft, No Distention, No Abnormal Bruit, Tender (mild tenderness on epigstric region) (Male) Exam: Deferred Back Exam: Normal Inspection, Decreased Range of Motion Extremities: Normal Inspection, Normal Range of Motion, Non-Tender, No Pedal Edema, Normal Capillary Refill Peripheral Pulses: 2+: Dorsalis Pedis (L), Dorsalis Pedis (R) Skin: Warm, Dry, Intact Neurological: No New Focal Deficit Psy/Mental Status: Alert, Normal Affect, Normal Mood - Problem List Review Problem List Initiated/Reviewed/Updated: Yes - My Orders Last 24 Hours: My Active Orders 07/11/18 20:24 Height and Weight [RC] 04 Intake and Output [RC] 04,16 Oxygen Therapy [RC] PRN Up ad Neli [RC] BID Vital Signs [RC] Q4HR Consult to Case Management/Business Economist [CONS] Routine Consult to Physician [CONS] Routine Acetaminophen [Tylenol] 650 mg PO Q4H PRN Acetaminophen/HYDROcodone [[place] 325-5 MG] 1 tab PO Q4H PRN Albuterol/Ipratropium [DuoNeb 3.0-0.5 MG/3 ML] 3 ml NEB Q4H PRN HYDROmorphone [Dilaudid] 0.5 mg IVPUSH Q2H PRN LORazepam [Ativan] 0.5 mg IV Q6H PRN Ondansetron [Zofran] 4 mg IV Q6H PRN Promethazine [Phenergan] 6.25 mg Sodium Chloride 0.9% [Normal Saline] 50 ml IV Q6H Temazepam [Restoril] 7.5 mg PO BEDTIME PRN Sequential Compression Device [OM.PC] Per Unit Routine Resuscitation Status Routine 07/11/18 20:25 Antiembolic Devices [RC] BID RT Aerosol Therapy [RC] ASDIRECTED 07/11/18 20:26 Notify Provider Consults [RC] ASDIRECTED 07/11/18 20:27 H.PYLORI ANTIGEN, STOOL [OP] Stat 07/11/18 20:33 LORazepam [Ativan] 2 mg IVPUSH Q4H PRN Metoprolol Tartrate [Lopressor] 5 mg IVPUSH Q4H PRN hydrALAZINE [Apresoline] 20 mg IVPUSH Q4H PRN 07/11/18 20:36 VTE/DVT Education [RC] BID 07/11/18 20:45 Pharmacy to Dose - Magnesium R [Pharmacy to Dose - Magnesium Replacement] 1 dose .XX ASDIRECTED Pharmacy to Dose - Potassium R [Pharmacy to Dose - Potassium Replacement] 1 dose .XX ASDIRECTED 07/11/18 22:00 Sucralfate [Carafate] 1 gm PO QIDACANDBED 07/11/18 22:15 LORazepam [Ativan] See Protocol IVPUSH Q4H PRN 07/11/18 22:16 CIWAA Assessment [RC] Q4HR Notify Provider [RC] PRN Haloperidol Lactate [Haldol] 2 mg IM Q4H PRN chlordiazePOXIDE [Librium] 25 mg PO Q8H PRN cloNIDine [Catapres] 0.1 mg PO Q4H PRN Seizure Precautions [OM.PC] Routine 07/11/18 Dinner Nothing per Oral After Midnight Diet [DIET] 07/12/18 00:15 Sodium Chloride 0.9% [Normal Saline] 1,000 ml IV ASDIRECTED 07/12/18 09:00 Fish Oil/Sheldon-3 Fatty Acids [Fish Oil] 1 gm PO DAILY Multivitamins,Therapeutic [Thera] 1 each PO DAILY - Plan Plan:: Assessment/Plan: Acute: UGI Bleed/Melena - Likely 2/2 PUD - Carries a x/o gastric Ulcer approximately 1-2.5 cm in diameter S/p EGD in performed by Dr. Alcantara - He still on PPI and Carafate but drinks significant amount of ETOH - Reports epigastric pain, nausea and black stools - Hgb 6.5 on presentation; now 8.8 grams (his baseline is 14-15 grams) - Has no gone to the bathroom since admission - S/p 3 units of PRBC transfusion - Continue Protonix drip-stop in AM - Dr. Mabry will scope him this afternoon Hx/o Gastric Ulcer - 1-1.5 cm in diameter - Still on PPI and Carafate Resolved: S/p Symptomatic Anemia - 2/2 UGI Bleed - S/p 3 units of PRBCs transfusion - He is clinically stable - If he becomes unstable--> transfer to the unit and contact Dr. Mabry and Attending right away Chronic: GERD Hx/o Ventral Hernia Anxiety Depression ETOH Use, ELDER level 0.01 Moderately Large Hiatal Hernia Plan: He is clinically much better Routine AM Labs CIWAA Protocol Dr. Mabry seen him already and scheduled for Resume diet after endoscopy Protonix drip and IV fluids SW/CM for d/c planning Code Status:1 Possible d/c today or in AM.
--- NOTE | 2018-07-12 09:17 | CR ---
Abdomen: Supine view of the abdomen was obtained. Comparison: Prior abdominal x-ray of 12/06/17. Bowel gas pattern appears within normal limits. Large hiatal hernia is seen. No abnormal calcifications or discrete soft tissue abnormality is seen. Mild degenerative change is noted within the spine with mild scoliosis. Impression: 1. Incidental findings. Nothing acute is seen. Diagnostic code #2
--- NOTE | 2018-07-12 10:27 | CT ---
CT abdomen and pelvis Technique: Multiple axial sections were obtained from above the dome of the diaphragm inferiorly to the pubic symphysis. Intravenous and oral contrast not utilized. Comparison: Prior CT abdomen and pelvis exam dated 12/05/17. Findings: Small portion of the visualized lung bases shows nothing acute. Moderately large hiatal hernia is seen which is noted on prior CT exam. Noncontrast appearance of the liver appears within normal limits. Adrenal glands show no nodule. Pancreas is within normal limits. Kidneys show no abnormal calcifications. No ureteral dilatation or ureteral stone is seen. Gallbladder contains no calcified gallstones. Aorta shows no aneurysm. No retroperitoneal adenopathy is seen. Appendix is seen which is normal in size. Minimal descending and sigmoid diverticulosis is seen. No inflammatory change of diverticulitis is seen. No free fluid is seen. No bowel dilatation is seen. Bone window settings were reviewed which show scattered degenerative change within the spine. Impression: 1. Incidental findings as noted above. Nothing acute is identified on noncontrast CT study of the abdomen and pelvis. Diagnostic code #2 I agree with preliminary report from [facility], finalized on 07/11/18, 7:26 PM Central Time
--- NOTE | 2018-07-12 12:37 | PCM.PREANE ---
Preanesthetic Assessment - Anesthesia/Transfusion/Family Hx Anesthesia History: Prior Anesthesia Without Reaction Family History of Anesthesia Reaction: No Transfusion History: Prior Transfusion Without Reaction - Review of Systems General: Weakness, Fatigue, Other (chronic ETOH, 3 shots per days) Pulmonary: Shortness of Breath, Other (quit smoking 1 year ago) Cardiovascular: No Symptoms, Other (history gastric ulcer) Gastrointestinal: Abdominal Pain, Hematochezia, Other (GERD) Other: Reports: Depression, Anxiety - Physical Assessment NPO Status Date: 07/11/18 NPO Status Time: 19:00 Pulse: 77 O2 Sat by Pulse Oximetry: 97 Respiratory Rate: 16 Blood Pressure: 124/83 Temperature: 36.6 C Vital Signs: Last Vital Signs Temp 36.6 C 07/12/18 12:00 Pulse 78 07/12/18 12:00 Resp 16 07/12/18 12:00 BP 128/72 07/12/18 12:00 Pulse Ox 97 07/12/18 12:00 Height: 1.68 m Weight: 83.642 kg ASA Class: 3 Mental Status: Alert & Oriented x3 Airway Class: Mallampati = 2 Dentition: Reports: Normal Dentition Thyro-Mental Finger Breadths: 3 Mouth Opening Finger Breadths: 3 ROM/Head Extension: Full Lungs: Clear to Auscultation, Normal Respiratory Effort Cardiovascular: Regular Rate, Regular Rhythm - Lab Values: Laboratory Last Values WBC 7.80 K/mm3 (4.23-9.07) 07/12/18 05:25 RBC 3.97 M/mm3 (4.63-6.08) L 07/12/18 05:25 Hgb 8.8 gm/L (13.7-17.5) L 07/12/18 05:25 Hct 28.4 % (40.1-51.0) L 07/12/18 05:25 MCV 71.5 fl (79.0-92.2) L 07/12/18 05:25 MCH 22.2 pg (25.7-32.2) L 07/12/18 05:25 MCHC 31.0 g/dl (32.2-35.5) L 07/12/18 05:25 RDW Std Deviation 58.1 fL (35.1-43.9) H 07/12/18 05:25 Plt Count 298 K/mm3 (163-337) 07/12/18 05:25 MPV 10.8 fl (9.4-12.3) 07/12/18 05:25 Neut % (Auto) 69.9 % (34.0-67.9) H 07/12/18 05:25 Lymph % (Auto) 18.7 % (21.8-53.1) L 07/12/18 05:25 [place] % (Auto) 9.7 % (5.3-12.2) 07/12/18 05:25 Eos % (Auto) 0.8 (0.8-7.0) 07/12/18 05:25 Baso % (Auto) 0.6 % (0.1-1.2) 07/12/18 05:25 Neut # (Auto) 5.45 K/mm3 (1.78-5.38) H 07/12/18 05:25 Lymph # (Auto) 1.46 K/mm3 (1.32-3.57) 07/12/18 05:25 [place] # (Auto) 0.76 K/mm3 (0.30-0.82) 07/12/18 05:25 Eos # (Auto) 0.06 K/mm3 (0.04-0.54) 07/12/18 05:25 Baso # (Auto) 0.05 K/mm3 (0.01-0.08) 07/12/18 05:25 Manual Slide Review Abnormal smear 07/12/18 05:25 Sodium 138 mEq/L (136-145) 07/12/18 05:25 Potassium 4.3 mEq/L (3.5-5.1) 07/12/18 05:25 Chloride 105 mEq/L (98-107) 07/12/18 05:25 Carbon Dioxide 26 mEq/L (21-32) 07/12/18 05:25 Anion Gap 11.3 (5-15) 07/12/18 05:25 BUN 15 mg/dL (7-18) 07/12/18 05:25 Creatinine 0.8 mg/dL (0.7-1.3) 07/12/18 05:25 Est Cr Clr Drug Dosing 91.93 mL/min 07/12/18 05:25 Estimated GFR (MDRD) > 60 mL/min (>60) 07/12/18 05:25 BUN/Creatinine Ratio 18.8 (14-18) H 07/12/18 05:25 Glucose 106 mg/dL (74-106) 07/12/18 05:25 Hemoglobin A1c 6.00 % (4.50-6.20) 07/12/18 05:25 Calcium 8.2 mg/dL (8.5-10.1) L 07/12/18 05:25 Magnesium 2.3 mg/dl (1.8-2.4) 07/12/18 05:25 Total Bilirubin 0.6 mg/dL (0.2-1.0) 07/11/18 16:05 AST 38 U/L (15-37) H 07/11/18 16:05 ALT 35 U/L (16-63) 07/11/18 16:05 Alkaline Phosphatase 96 U/L (46-116) 07/11/18 16:05 Total Protein 6.9 g/dl (6.4-8.2) 07/11/18 16:05 Albumin 3.2 g/dl (3.4-5.0) L 07/11/18 16:05 Globulin 3.7 gm/dL 07/11/18 16:05 Albumin/Globulin Ratio 0.9 (1-2) L 07/11/18 16:05 Lipase 368 U/L (73-393) 07/11/18 16:05 Ethyl Alcohol 0.01 gm% (0.00) 07/11/18 18:08 Blood Type O POSITIVE 07/11/18 16:05 Gel Antibody Screen Negative 07/11/18 16:05 Crossmatch See Detail 07/11/18 16:05 - Allergies Allergies/Adverse Reactions: Allergies Allergy/AdvReac Type Severity Reaction Status Date / Time No Known Allergies Allergy Verified 07/11/18 15:55 - Blood Blood Available: No Product(s) Available: None - Acknowledgements Anesthesia Type Planned: MAC Pt an Appropriate Candidate for the Planned Anesthesia: Yes Alternatives and Risks of Anesthesia Discussed w Pt/Guardian: Yes Pt/Guardian Understands and Agrees with Anesthesia Plan: Yes PreAnesthesia Questionnaire HEENT History: Reports: Impaired Vision, Other (See Below) Other HEENT History: pt states that he wears glasses for reading. Cardiovascular History: Reports: None Respiratory History: Reports: None Gastrointestinal History: Reports: GERD, GI Bleed, Other (See Below) Other Gastrointestinal History: Last GI bleed was in August 2017 Genitourinary History: Reports: Renal Calculus Musculoskeletal History: Reports: Arthritis Neurological History: Reports: None Psychiatric History: Reports: Anxiety, Depression Endocrine/Metabolic History: Reports: Obesity/BMI 30+ Hematologic History: Reports: Blood Transfusion(s) Other Hematologic History: pt currently admitted for gi bleed with a hgb of 7.6 and is receiving 2 units of blood. Immunologic History: Reports: None Oncologic (Cancer) History: Reports: None Dermatologic History: Reports: None - Infectious Disease History Infectious Disease History: Reports: Shingles - Past Surgical History Head Surgeries/Procedures: Reports: None GI Surgical History: Reports: Hernia, Abdominal - History Comment History Comment: takes pill for arthritis every day but doesn't remember name of it- rx - SUBSTANCE USE Smoking Status *Q: Former Smoker Tobacco Use Within Last Twelve Months: Cigarettes Date of Last Drink: 07/09/18 Time of Last Drink: 17:00 Recreational Drug Use History: No - HOME MEDS Home Medications: Home Meds Omeprazole 40 mg PO DAILY #56 cap.sr 09/17/17 [Rx] Sucralfate [Carafate] 1 gm PO QID #224 tablet 09/17/17 [Rx] Multivitamin [Multi-Vitamin Daily] 1 tab PO DAILY 07/11/18 [History] [place]-3/DHA/Epa/Fish Oil [[place]-3 Fish Oil 1,000 MG Sfgl] 1,000 mg PO DAILY [History] - CURRENT (IN HOUSE) MEDS Current Meds: Current Medications Acetaminophen (Tylenol) 650 mg PO Q4H PRN PRN Reason: Pain (Mild 1-3)/fever Hydrocodone Bitart/Acetaminophen ([place] 325-5 Mg) 1 tab PO Q4H PRN PRN Reason: Pain (moderate 4-6) Albuterol/Ipratropium (Duoneb 3.0-0.5 Mg/3 Ml) 3 ml NEB Q4H PRN PRN Reason: Shortness Of Breath/wheezing Chlordiazepoxide HCl (Librium) 25 mg PO Q8H PRN PRN Reason: Withdrawal Symptoms Clonidine HCl (Catapres) 0.1 mg PO Q4H PRN PRN Reason: Agitation Fish Oil (Fish Oil) 1 gm PO DAILY MAXIMILIANO Stop: 07/14/18 09:00 Last Admin: 07/12/18 08:20 Dose: Not Given Haloperidol Lactate (Haldol) 2 mg IM Q4H PRN PRN Reason: Agitation Hydralazine HCl (Apresoline) 20 mg IVPUSH Q4H PRN PRN Reason: Hypertension Hydromorphone HCl (Dilaudid) 0.5 mg IVPUSH Q2H PRN PRN Reason: Pain (severe 7-10) Pantoprazole Sodium 80 mg/ (Sodium Chloride) 100 mls @ 10 mls/hr IV Q10H [facility] Last Admin: 07/12/18 02:42 Dose: 10 mls/hr Promethazine HCl 6.25 mg/ (Sodium Chloride) 50.25 mls @ 100 mls/hr IV Q6H PRN PRN Reason: Nausea/Vomiting Sodium Chloride (Normal Saline) 1,000 mls @ 50 mls/hr IV ASDIRECTED [facility] Lorazepam (Ativan) 0.5 mg IV Q6H PRN PRN Reason: Anxiety Lorazepam (Ativan) 2 mg IVPUSH Q4H PRN PRN Reason: Seizures Lorazepam (Ativan) 0 mg IVPUSH Q4H PRN; Protocol PRN Reason: Withdrawal Symptoms Magnesium Sulfate (Pharmacy To Dose - Magnesium Replacement) 1 dose .XX ASDIRECTED [facility] Metoprolol Tartrate (Lopressor) 5 mg IVPUSH Q4H PRN PRN Reason: Tachycardia Multivitamins (Thera) 1 each PO DAILY [facility] Stop: 07/14/18 09:00 Last Admin: 07/12/18 08:20 Dose: Not Given Ondansetron HCl (Zofran) 4 mg IV Q6H PRN PRN Reason: Nausea/Vomiting Potassium Chloride (Pharmacy To Dose - Potassium Replacement) 1 dose .XX ASDIRECTED [facility] Sodium Chloride (Saline Flush) 10 ml FLUSH ASDIRECTED PRN PRN Reason: Keep Vein Open Last Admin: 07/11/18 16:50 Dose: 10 ml Sucralfate (Carafate) 1 gm PO QIDACANDBED [facility] Last Admin: 07/12/18 10:37 Dose: Not Given Temazepam (Restoril) 7.5 mg PO BEDTIME PRN PRN Reason: Sleep Discontinued Medications Folic Acid (Folic Acid) 1 mg SUBCUT ONETIME ONE Stop: 07/11/18 22:17 Last Admin: 07/11/18 23:31 Dose: Not Given Folic Acid (Folic Acid) 1 mg PO ONETIME ONE Stop: 07/11/18 23:30 Last Admin: 07/11/18 23:44 Dose: 1 mg Hydromorphone HCl (Dilaudid) 1 mg IVPUSH ONETIME ONE Stop: 07/11/18 16:25 Last Admin: 07/11/18 16:46 Dose: 1 mg Sodium Chloride (Normal Saline) 1,000 mls @ 125 mls/hr IV ASDIRECTED [facility] Stop: 07/12/18 21:00 Last Admin: 07/11/18 16:47 Dose: 125 mls/hr Sodium Chloride (Normal Saline) 1,000 mls @ 999 mls/hr IV ONETIME ONE Stop: 07/11/18 22:37 Last Admin: 07/11/18 22:13 Dose: 999 mls/hr Magnesium Sulfate (Magnesium Sulfate 2 Gm In Water 50 Ml) 50 mls @ 25 mls/hr IV ONETIME ONE Stop: 07/12/18 00:59 Last Admin: 07/12/18 02:51 Dose: 25 mls/hr Potassium Chloride (Kcl 10 Meq In Water 100 Ml) 100 mls @ 100 mls/hr IV Q1H [facility] Stop: 07/12/18 03:29 Last Admin: 07/12/18 04:31 Dose: 70 mls/hr Thiamine HCl 100 mg/ Sodium (Chloride) 51 mls @ 100 mls/hr IV ONETIME ONE Stop: 07/11/18 22:46 Last Admin: 07/11/18 23:31 Dose: Not Given Non-Formulary Medication (Omeprazole) 40 mg PO DAILY [facility] Stop: 07/14/18 09:00 Ondansetron HCl (Zofran) 4 mg IVPUSH ONETIME ONE Stop: 07/11/18 16:24 Last Admin: 07/11/18 16:42 Dose: 4 mg Pantoprazole Sodium (Protonix Iv) 80 mg IVPUSH BOLUS ONE Stop: 07/11/18 16:25 Last Admin: 07/11/18 16:44 Dose: 80 mg Thiamine HCl (Vitamin B-1) 100 mg PO ONETIME ONE Stop: 07/11/18 23:29 Last Admin: 07/11/18 23:44 Dose: 100 mg
[2018-07-12] MEDS ORDERED: Midazolam 1 MG/ML 2 ML SDV ONE (14:03)
[2018-07-12] MEDS ORDERED: Propofol 200 MG/20 ML SDV ONE ×2 (14:03→14:17)
[2018-07-12] MEDS ORDERED: fentaNYL 100 MCG/2 ML SDV ONE (14:06)
--- NOTE | 2018-07-12 14:38 | PCM48HPAN ---
Post Anesthesia Note - EVALUATION WITHIN 48HRS OF ANESTHETIC Vital Signs in Normal Range: Yes Patient Participated in Evaluation: Yes Respiratory Function Stable: Yes Airway Patent: Yes Cardiovascular Function Stable: Yes Hydration Status Stable: Yes Pain Control Satisfactory: Yes Nausea and Vomiting Control Satisfactory: Yes Mental Status Recovered: Yes Pulse Rate: 77 SaO2: 97 Resp Rate: 16 Temperature: 36.6 C Blood Pressure: 124/83
[2018-07-12] MEDS: Sodium Chloride 0.9% 1,000 ML IV SCH (14:46)
--- NOTE | 2018-07-12 14:54 | PCM.OPNOTE ---
- General Post-Op/Procedure Note Date of Surgery/Procedure: 07/12/18 Operative Procedure(s): EGD Findings: 1. Large gastric ulcer near the GE junction approximately 1.5 cm as well as multiple linear ulcerations and some diffuse patchy areas of erosion in the body of the stomach 2. Duodenitis Pre Op Diagnosis: GI bleed Post-Op Diagnosis: Multiple gastric ulcers Anesthesia Technique: MAC Primary Surgeon: Elisa Bright Anesthesia Provider: Sariah Elizabeth Pathology: Gastric antrum Output, Urine Amount: 0 EBL in mLs: 0 Complications: none apparent Condition: Good Free Text/Narrative:: Intake & Output 07/11/18 07/12/18 07/12/18 22:59 06:59 14:59 Intake Total 281 2330 Balance 281 2330
--- NOTE | 2018-07-12 15:02 | PCM.PRNOTE ---
- Free Text/Narrative Note: Operative Report Date of procedure: July 12, 2018 Preoperative diagnosis: . GI bleed Postoperative diagnosis: Multiple Gastric ulcers Surgeon: Elisa Bright M.D. Procedure: EGD Anesthesia: MAC Anesthesiologist: Sariah Elizabeth CRNA IV fluids: . See anesthesia documentation Estimated blood loss: 0 mL Specimens: Gastric antrum for H. pylori. Indication: The patient is a 57 -year-old gentleman who presented with melena suggestive of GI bleed. The patient has a history of peptic ulcer disease with GI bleed in the past. He drinks a large volume of alcohol daily. The patient was consented for an EGD with intervention. Risk of bleeding and perforation were discussed. The patient's consent was obtained Description of the procedure: The patient was taken to the endoscopy suite and placed on hemodynamic monitoring. The nurse jointer operator induced MAC anesthesia. A bite block was placed. The patient was positioned in the left lateral decubitus position. A timeout was performed. The endoscope was gently placed into the mouth to the back of the pharynx and introduced into the esophagus. The scope was gently advanced under direct visualization down to the level of the lower esophageal sphincter. The stomach was then entered. Normal rugal folds were noted. The scope was advanced into the antrum. The pylorus was then entered and the first, second, and third portion of the duodenum was inspected. We did note some duodenitis. There were no ulcerations in the duodenum. The scope was then retroflexed in the cardia and fundus were investigated. There was a circular ulcer with a clean base approximately 1.5 cm x 1.5 cm located on the lesser curvature near the GE junction. On the body and greater curvature of the stomach. There were 4 linear ulcerations measuring 1-2 cm in length by 2-3 mm in width. There were also patchy areas of mild erosions throughout the body of the stomach. There was no stigmata of recent bleeding. There is no evidence of any hiatal hernia. No other abnormalities were noted. The scope was then withdrawn while inspecting the esophagus. There was no esophagitis. The procedure was terminated. the patient tolerated the procedure well without any evidence of complications. Instructions: The patient will return to the floor and may resume clear liquid diet and advance as tolerated. She will be maintained on a PPI. Plan for reevaluation with repeat scope in approximately 6 weeks. Elisa Bright MD General Surgery
[2018-07-12] MEDS ORDERED: Pantoprazole 80 MG in Sodium Chloride 0.9% 100 ML IV SCH (22:30)
[2018-07-13] MEDS ORDERED: Pantoprazole 80 MG in Sodium Chloride 0.9% 100 ML IV SCH (00:30)
[2018-07-13] MEDS: Sucralfate 1 GM Tab PO SCH ×2 (06:23→11:36)
[2018-07-13] MEDS: Sodium Chloride 0.9% 1,000 ML IV SCH (09:02)
[2018-07-13] MEDS: Fish Oil/Omega-3 Fatty Acids 1 Gm Cap PO SCH (09:21)
[2018-07-13] MEDS: Multivitamins,Therapeutic Tab PO SCH (09:21)
[2018-07-13 11:15] VITALS: BP 125/80
--- NOTE | 2018-07-13 13:16 | PCM.DCSUM1 ---
Discharge Summary - Hospital Course HPI Initial Comments: This is a 57 yo male with past medical hx/o GERD, Hx/o Ventral Hernia, Anxiety, Depression and Chronic ETOH Use who comes in for evaluation of abdominal pain associated with nausea and black stools. He feels week and somewhat short of breath. He denies any chest pain but states he almost passed out last night. He carries a hx/o upper GI bleed about a year ago and was found to have a gastric ulcer about 1-1.5 cm in diameter on EGD. Patient still takes his PPI and Carafate but drinks considerable amount of alcohol everyday. His initial work up in ED shows a CBC remarkable for WBC of 12.65, RBC of 3.39, Hgb of 6.5, Hct of 23, MCV of 67.8, MCH of 19.2, MCHC of 28.3, RDW of 52.8, Platelet count of 365, Neutrophils of 81.3%, Lymphocytes of 8.1%, and Monocyte # of 1.26. His chemistry is significant for CO2 of 17, AG of 24.7, Cr of 1.1, BS of 150, Mg of 1.6, AST of 38, and Albumin of 3.2. His ELDER level is 0.01. His Abdominal/Pelvis CT scan report reads moderately large hiatal hernia seen on noted on prior CT exam. Nothing acute is identified on non-contrast CT study. Patient is being admitted for UGI Bleed likely from PUD. He is full code. Diagnosis: Stroke: No - Discharge Data Discharge Date: 07/13/18 Discharge Disposition: Home, Self-Care 01 Condition: Good - Discharge Diagnosis/Problem(s) (1) Upper GI bleeding SNOMED Code(s): 74908097 ICD Code: K92.2 - GASTROINTESTINAL HEMORRHAGE, UNSPECIFIED Status: Resolved Priority: High (2) Gastric ulcer SNOMED Code(s): 463970504 ICD Code: K25.9 - GASTRIC ULCER, UNSP ACUTE OR CHRONIC, W/O HEMOR OR PERF Status: Chronic Priority: High Qualifiers: Gastric ulcer chronicity: acute Gastric ulcer complication status: with hemorrhage Qualified Code(s): K25.0 - Acute gastric ulcer with hemorrhage (3) Anemia SNOMED Code(s): 690636244 ICD Code: D64.9 - ANEMIA, UNSPECIFIED Status: Acute Qualifiers: Anemia type: unspecified type Qualified Code(s): D64.9 - Anemia, unspecified (4) Alcohol abuse SNOMED Code(s): 72980451 ICD Code: F10.10 - ALCOHOL ABUSE, UNCOMPLICATED Status: Chronic - Patient Summary/Data Operative Procedure(s) Performed: EGD Complications: None Consults: Consultations 07/11/18 20:24 Consult to Case Management/Sales And Merchandising Representative [CONS] Routine Consult to Physician [CONS] Routine Labs Pending at D/C: None Recommended Follow-up Testing/Procedures: PCP after discharge Planned Operative Procedure(s) after DC: None Hospital Course: Patient was primarily admitted for upper GI bleed 2/2 gastric ulcer. He carried a hx/o it about a year ago. On this admission, he presented with a Hg of 6.5 but he received 3 units of PRBCs as well intravenous fluids to improve his Hgb initially to 8.8. He underwent for an EGD and he was found to have multiple gastric ulcers. The procedure was performed by Dr. Mabry and he tolerated the procedure well w/o any complications. Once stable, he was continued on PPI, Carafate, and was advised to quit if not cut down on his ETOH intake. His Hgb level on day of discharge was noted at 9.3. His hospital course was uncomplicated and the rest of his chronic medical illness remained stable during this hospitalization. He was advised to comply with discharge instructions and to follow up with PCP in 1 week. He was further advised to come back and seek immediate care should his symptom persists or gets worse. The patient expressed understanding and in agreement with the plans as discussed above. All questions were answered. Of note, he was able to tolerate regular meal w/o any issues and received one bag of intravenous iron prior to discharge. His family was present at bedside as we went over his discharge care plan. - Patient Instructions Diet: Usual Diet as Tolerated Activity: As Tolerated Driving: May Drive Today Showering/Bathing: May Shower Notify Provider of: Fever, Nausea and/or Vomiting Other/Special Instructions: - Please resume all home medications and routine home activities as tolerated. - Recommend follow up CBC in 1 week through your PCP's office. - Absolutely avoid alcohol at this point! - Call or follow up with your PCP for any questions or concerns after discharge. - Follow up with your PCP in 1 week with repeat labs. - Come back or seek immediate care should your symptoms persist or get worse - Discharge Plan *PRESCRIPTION DRUG MONITORING PROGRAM REVIEWED*: No *COPY OF PRESCRIPTION DRUG MONITORING REPORT IN PATIENT KELLIE: No Prescriptions/Med Rec: Omeprazole 40 mg PO DAILY #30 cap.sr Sucralfate [Carafate] 1 gm PO QID #120 tablet Home Medications: Home Meds Multivitamin [Multi-Vitamin Daily] 1 tab PO DAILY 07/11/18 [History] [place]-3/DHA/Epa/Fish Oil [[place]-3 Fish Oil 1,000 MG Sfgl] 1,000 mg PO DAILY [History] Omeprazole 40 mg PO DAILY #30 cap.sr 07/13/18 [Rx] Sucralfate [Carafate] 1 gm PO QID #120 tablet 07/13/18 [Rx] Patient Handouts: Alcohol Use Disorder, What You Need to Know About Alcohol Abuse and Dependence, Adult, Upper Gastrointestinal Bleeding, Peptic Ulcer, Easy -to-Read, Substance Use Disorder Referrals: Elisa Bright MD [Physician] - (Please make an appointment to follow-up in 6 weeks.) Dasha Brown PA-C [Physician Radar Scientist] - (Please make an appointment to follow-up in 1 week. You should have a CBC lab test done before the appointment. ) - Discharge Summary/Plan Comment DC Time >30 min.: No Discharge Summary/Plan Comment: Discharge to Home - General Info Date of Service: 07/13/18 Admission Dx/Problem (Free Text: Admission Diagnosis/Problem Admission Diagnosis/Problem GI bleed not requiring more than 4 units of blood in 24 hours, ICU, or surgery Subjective Update: Follow Up Functional Status: Reports: Pain Controlled, Tolerating Diet, Ambulating, Urinating. Denies: New Symptoms - Review of Systems General: Denies: Fever, Weakness, Fatigue, Malaise, Chills HEENT: Reports: No Symptoms Pulmonary: Denies: Shortness of Breath Cardiovascular: Denies: Chest Pain, Palpitations, Dyspnea on Exertion, Orthopnea , Edema, Lightheadedness Gastrointestinal: Reports: Flatus. Denies: Abdominal Pain, Constipation, Decreased Appetite, Diarrhea, Difficulty Swallowing, Hematochezia, Melena, Nausea, Vomiting Genitourinary: Reports: No Symptoms Musculoskeletal: Reports: No Symptoms Skin: Denies: Cyanosis, Jaundice, Mottled, Pallor, Diaphoresis, Bruising, Other Neurological: Denies: Confusion, Dizziness, Headache, Numbness, Syncope, Weakness, Gait Disturbance, Other Psychiatric: Denies: Depression, Anxiety, Agitation, Hallucinations Systems Review Comment: No overnight or acute issues. He slept pretty good. His Hgb is now 9.3 this AM. No report of GI bleed per day nurse. - Patient Data Vitals - Most Recent: Last Vital Signs Temp 36.5 C 07/13/18 10:53 Pulse 63 07/13/18 10:53 Resp 20 07/13/18 10:53 BP 125/80 07/13/18 10:53 Pulse Ox 99 07/13/18 10:53 Weight - Most Recent: 88.541 kg I&O - Last 24 hours: Intake & Output 07/12/18 07/13/18 07/13/18 22:59 06:59 14:59 Intake Total 1484 1682 Output Total 1100 1200 Balance 384 482 Lab Results - Last 24 hrs: Laboratory Results - last 24 hr 07/13/18 07/13/18 Range/Units 09:15 09:15 WBC 5.61 (4.23-9.07) K/mm3 RBC 4.22 L (4.63-6.08) M/mm3 Hgb 9.3 L (13.7-17.5) gm/L Hct 30.8 L (40.1-51.0) % MCV 73.0 L (79.0-92.2) fl MCH 22.0 L (25.7-32.2) pg MCHC 30.2 L (32.2-35.5) g/dl RDW Std Deviation 60.8 H (35.1-43.9) fL Plt Count 323 (163-337) K/mm3 MPV 9.8 (9.4-12.3) fl Neut % (Auto) 73.8 H (34.0-67.9) % Lymph % (Auto) 15.7 L (21.8-53.1) % [place]er % (Auto) 8.7 (5.3-12.2) % Eos % (Auto) 1.2 (0.8-7.0) Baso % (Auto) 0.4 (0.1-1.2) % Neut # (Auto) 4.14 (1.78-5.38) K/mm3 Lymph # (Auto) 0.88 L (1.32-3.57) K/mm3 [place]er # (Auto) 0.49 (0.30-0.82) K/mm3 Eos # (Auto) 0.07 (0.04-0.54) K/mm3 Baso # (Auto) 0.02 (0.01-0.08) K/mm3 Manual Slide Review Abnormal smear Sodium 141 (136-145) mEq/L Potassium 3.9 (3.5-5.1) mEq/L Chloride 106 (98-107) mEq/L Carbon Dioxide 26 (21-32) mEq/L Anion Gap 12.9 (5-15) BUN 5 L (7-18) mg/dL Creatinine 0.8 (0.7-1.3) mg/dL Est Cr Clr Drug Dosing 91.93 mL/min Estimated GFR (MDRD) > 60 (>60) mL/min BUN/Creatinine Ratio 6.3 L (14-18) Glucose 110 H (74-106) mg/dL Calcium 8.4 L (8.5-10.1) mg/dL Magnesium 1.9 (1.8-2.4) mg/dl OTILIO Results - Last 24 hrs: Microbiology 07/12/18 09:59 Helicobacter pylori Antigen - Final Stool / Feces NEGATIVE [facility]. [facility] Med Orders - Current: Current Medications Acetaminophen (Tylenol) 650 mg PO Q4H PRN PRN Reason: Pain (Mild 1-3)/fever Last Admin: 07/12/18 17:44 Dose: 650 mg Hydrocodone Bitart/Acetaminophen ([place] 325-5 Mg) 1 tab PO Q4H PRN PRN Reason: Pain (moderate 4-6) Albuterol/Ipratropium (Duoneb 3.0-0.5 Mg/3 Ml) 3 ml NEB Q4H PRN PRN Reason: Shortness Of Breath/wheezing Chlordiazepoxide HCl (Librium) 25 mg PO Q8H PRN PRN Reason: Withdrawal Symptoms Clonidine HCl (Catapres) 0.1 mg PO Q4H PRN PRN Reason: Agitation Fish Oil (Fish Oil) 1 gm PO DAILY MAXIMILIANO Stop: 07/14/18 09:00 Last Admin: 07/13/18 09:21 Dose: 1 gm Haloperidol Lactate (Haldol) 2 mg IM Q4H PRN PRN Reason: Agitation Hydralazine HCl (Apresoline) 20 mg IVPUSH Q4H PRN PRN Reason: Hypertension Hydromorphone HCl (Dilaudid) 0.5 mg IVPUSH Q2H PRN PRN Reason: Pain (severe 7-10) Promethazine HCl 6.25 mg/ (Sodium Chloride) 50.25 mls @ 100 mls/hr IV Q6H PRN PRN Reason: Nausea/Vomiting Sodium Chloride (Normal Saline) 1,000 mls @ 50 mls/hr IV ASDIRECTED [facility] Last Admin: 07/13/18 09:02 Dose: 50 mls/hr Lorazepam (Ativan) 0.5 mg IV Q6H PRN PRN Reason: Anxiety Lorazepam (Ativan) 2 mg IVPUSH Q4H PRN PRN Reason: Seizures Lorazepam (Ativan) 0 mg IVPUSH Q4H PRN; Protocol PRN Reason: Withdrawal Symptoms Magnesium Sulfate (Pharmacy To Dose - Magnesium Replacement) 1 dose .XX ASDIRECTED [facility] Metoprolol Tartrate (Lopressor) 5 mg IVPUSH Q4H PRN PRN Reason: Tachycardia Multivitamins (Thera) 1 each PO DAILY [facility] Stop: 07/14/18 09:00 Last Admin: 07/13/18 09:21 Dose: 1 each Ondansetron HCl (Zofran) 4 mg IV Q6H PRN PRN Reason: Nausea/Vomiting Potassium Chloride (Pharmacy To Dose - Potassium Replacement) 1 dose .XX ASDIRECTED [facility] Sodium Chloride (Saline Flush) 10 ml FLUSH ASDIRECTED PRN PRN Reason: Keep Vein Open Last Admin: 07/11/18 16:50 Dose: 10 ml Sucralfate (Carafate) 1 gm PO QIDACANDBED [facility] Last Admin: 07/13/18 11:36 Dose: 1 gm Temazepam (Restoril) 7.5 mg PO BEDTIME PRN PRN Reason: Sleep Discontinued Medications Fentanyl (Sublimaze) Confirm Administered Dose 100 mcg .ROUTE .STK-MED ONE Stop: 07/12/18 14:07 Folic Acid (Folic Acid) 1 mg SUBCUT ONETIME ONE Stop: 07/11/18 22:17 Last Admin: 07/11/18 23:31 Dose: Not Given Folic Acid (Folic Acid) 1 mg PO ONETIME ONE Stop: 07/11/18 23:30 Last Admin: 07/11/18 23:44 Dose: 1 mg Hydromorphone HCl (Dilaudid) 1 mg IVPUSH ONETIME ONE Stop: 07/11/18 16:25 Last Admin: 07/11/18 16:46 Dose: 1 mg Pantoprazole Sodium 80 mg/ (Sodium Chloride) 100 mls @ 10 mls/hr IV Q10H [facility] Last Admin: 07/12/18 14:46 Dose: 10 mls/hr Sodium Chloride (Normal Saline) 1,000 mls @ 125 mls/hr IV ASDIRECTED [facility] Stop: 07/12/18 21:00 Last Admin: 07/11/18 16:47 Dose: 125 mls/hr Sodium Chloride (Normal Saline) 1,000 mls @ 999 mls/hr IV ONETIME ONE Stop: 07/11/18 22:37 Last Admin: 07/11/18 22:13 Dose: 999 mls/hr Magnesium Sulfate (Magnesium Sulfate 2 Gm In Water 50 Ml) 50 mls @ 25 mls/hr IV ONETIME ONE Stop: 07/12/18 00:59 Last Admin: 07/12/18 02:51 Dose: 25 mls/hr Potassium Chloride (Kcl 10 Meq In Water 100 Ml) 100 mls @ 100 mls/hr IV Q1H [facility] Stop: 07/12/18 03:29 Last Admin: 07/12/18 04:31 Dose: 70 mls/hr Thiamine HCl 100 mg/ Sodium (Chloride) 51 mls @ 100 mls/hr IV ONETIME ONE Stop: 07/11/18 22:46 Last Admin: 07/11/18 23:31 Dose: Not Given Iron Sucrose 200 mg/ Sodium (Chloride) 260 mls @ 83 mls/hr IV ONETIME ONE Stop: 07/12/18 20:25 Last Admin: 07/12/18 19:59 Dose: Not Given Ferric Sodium Gluconate Complex 250 mg/ Sodium Chloride 120 mls @ 60 mls/hr IV ONETIME ONE Stop: 07/12/18 19:29 Last Admin: 07/12/18 20:15 Dose: 60 mls/hr Pantoprazole Sodium 80 mg/ (Sodium Chloride) 100 mls @ 10 mls/hr IV Q10H [facility] Pantoprazole Sodium 80 mg/ (Sodium Chloride) 100 mls @ 10 mls/hr IV Q10H [facility] Stop: 07/13/18 06:00 Last Admin: 07/13/18 00:30 Dose: 10 mls/hr Midazolam HCl (Versed 1 Mg/Ml) Confirm Administered Dose 2 mg .ROUTE .STK-MED ONE Stop: 07/12/18 14:04 Non-Formulary Medication (Omeprazole) 40 mg PO DAILY MAXIMILIANO Stop: 07/14/18 09:00 Ondansetron HCl (Zofran) 4 mg IVPUSH ONETIME ONE Stop: 07/11/18 16:24 Last Admin: 07/11/18 16:42 Dose: 4 mg Pantoprazole Sodium (Protonix Iv) 80 mg IVPUSH BOLUS ONE Stop: 07/11/18 16:25 Last Admin: 07/11/18 16:44 Dose: 80 mg Propofol (Diprivan 20 Ml) Confirm Administered Dose 200 mg .ROUTE .STK-MED ONE Stop: 07/12/18 14:04 Propofol (Diprivan 20 Ml) Confirm Administered Dose 200 mg .ROUTE .STK-MED ONE Stop: 07/12/18 14:18 Thiamine HCl (Vitamin B-1) 100 mg PO ONETIME ONE Stop: 07/11/18 23:29 Last Admin: 07/11/18 23:44 Dose: 100 mg - Exam General: Reports: Alert, Oriented, Cooperative, No Acute Distress HEENT: Reports: Pupils Equal, Pupils Reactive, EOMI, Mucous Membr. Moist/[place] Neck: Reports: Supple, Trachea Midline, No JVD, No Thyromegaly Lungs: Reports: Clear to Auscultation, Normal Respiratory Effort Cardiovascular: Reports: Regular Rate, Regular Rhythm GI/Abdominal Exam: Normal Bowel Sounds, Soft, Non-Tender, No Organomegaly, No Distention, No Abnormal Bruit, No Mass (Male) Exam: Deferred Rectal (Males) Exam: Deferred Back Exam: Reports: Normal Inspection, Full Range of Motion Extremities: Normal Inspection, Normal Range of Motion, Non-Tender, No Pedal Edema, Normal Capillary Refill Skin: Reports: Warm, Dry, Intact Neurological: Reports: No New Focal Deficit Psy/Mental Status: Reports: Alert, Normal Affect, Normal Mood
== END 2018-07-13 13:52 | disposition home or self-care (01) | DRG 241 ==
LOC: JD.ED 15:45 → JD.MS 18:41
PROVIDERS: ADMIT Internal Medicine; ATTEND Internal Medicine
PROC: 30233N1 Transfusion of Nonautologous Red Blood Cells into Peripheral Vein, Percutaneous Approach (ICD-10-PCS; principal; 2018-07-11)
PROC: 0DJ08ZZ Inspection of Upper Intestinal Tract, Via Natural or Artificial Opening Endoscopic (ICD-10-PCS; 2018-07-12)
DX: K25.0 Acute gastric ulcer with hemorrhage (principal); K21.9 Gastro-esophageal reflux disease without esophagitis; D50.0 Iron deficiency anemia secondary to blood loss (chronic); K29.81 Duodenitis with bleeding; F41.9 Anxiety disorder, unspecified; F32.9 Major depressive disorder, single episode, unspecified; F10.10 Alcohol abuse, uncomplicated; K44.9 Diaphragmatic hernia without obstruction or gangrene; H54.7 Unspecified visual loss; M19.90 Unspecified osteoarthritis, unspecified site; E66.9 Obesity, unspecified; Z68.29 Body mass index [BMI] 29.0-29.9, adult; Z87.891 Personal history of nicotine dependence; Z79.899 Other long term (current) drug therapy; Z87.442 Personal history of urinary calculi
CPT/HCPCS: 36415; 36430; 74018; 74018-26; 74176; 74176-26; 80048; 80053; 83036; 83690; 83735; 85025; 86850; 86900; 86901; 86922; 87338; 96365; 96366; 96375; 96376; 99284; 99285-25; A9270-GY; C9113; G0480; J1170; J2250; J2405; J2704; J2916; J3010; J3475; J3480; J7030; J7040; P9016

== ENCOUNTER 2019-04-02 16:51 | Emergency (ER) | payer MEDICAID ==
[2019-04-02] MEDS ORDERED: Iopamidol 612 MG/ML 100 ML Bottle IVPUSH ONE (16:59)
--- NOTE | 2019-04-02 17:04 | EDM.PDOC ---
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 17:03 Lumbar Spine wo Cont [CT] Stat Thoracic Spine wo Cont [CT] Stat 04/02/19 17:45 Sodium Chloride 0.9% [Normal Saline] 1,000 ml IV ASDIRECTED 04/02/19 17:49 URINALYSIS W/MICROSCOPIC [UA W/MICROSCOPIC] [URIN] Stat 04/02/19 18:20 EKG Documentation Completion [RC] STAT CKMB [CHEM] Stat TROPONIN I [CHEM] Stat
[2019-04-02] MEDS: Sodium Chloride 0.9% 10 ML Syringe FLUSH PRN ×2 (17:31→18:36)
[2019-04-02] MEDS ORDERED: Sodium Chloride 0.9% 1,000 ML IV SCH (17:45)
[2019-04-02] MEDS ORDERED: LORazepam 2 MG/ML SDV IVPUSH ONE (19:07)
[2019-04-02] MEDS ORDERED: Metoclopramide 10 MG/2 ML SDV IVPUSH ONE (19:07)
[2019-04-02] MEDS ORDERED: Dextrose 5%-Lactated Ringers 1,000 ML IV SCH (19:15)
[2019-04-02 19:55] VITALS: BP 142/87; PULSE 88
--- NOTE | 2019-04-07 06:34 | CT ---
CT lumbar spine Technique: Multiple axial sections through the lumbar spine were obtained. Comparison: No prior lumbar spine imaging. Findings: Vacuum disc phenomena seen at L4-L5 with mild disc space narrowing as well as slight circumferential disc bulge. Slight circumferential disc bulge also noted at L3-L4. Severe disc space narrowing at L5-S1 with vacuum phenomena. Degenerative apophyseal change is seen throughout the lumbar spine. Moderate central canal stenosis is noted at L3-L4 and L4-L5 due to bulging discs and degenerative apophyseal change. Bony density is seen off the right apophyseal joints at L3-L4 possibly due to old injury or degenerative change. No acute fracture or abnormal subluxation is seen. Impression: 1. Degenerative change as noted above. 2. No acute abnormality is appreciated on CT study of the lumbar spine. Diagnostic code #3 This report was dictated in [place] Standard Time I agree with preliminary report from [facility], finalized on 04/02/19, 6:52 PM Central Time
--- NOTE | 2019-04-07 06:34 | CT ---
Head CT Technique: Multiple axial sections through the brain were obtained. Intravenous contrast was not utilized. Comparison: No prior intracranial imaging is available. Findings: Ventricles along with basal cisterns and sulci over the convexities are mildly prominent. No abnormal parenchymal densities are seen. No evidence of intracranial hemorrhage. No midline shift or mass effect is seen. Bone window settings were reviewed which show no acute calvarial abnormality. Visualized mastoid sinuses and paranasal sinuses show nothing acute. Impression: 1. Mild generalized atrophy. 2. No acute intracranial abnormality is appreciated. Diagnostic code #2 This report was dictated in [place] Standard Time I agree with preliminary report from [facility], finalized on 04/02/19, 6:47 PM Central Time
--- NOTE | 2019-04-07 06:34 | CT ---
CT cervical spine Technique: Multiple axial sections were obtained from above C1 inferiorly to the top of T3. Reconstructed sagittal and coronal images were reviewed. Findings: Mild degenerative change noted between the dens and anterior arch of C1. Disc space narrowing noted at C5-C6 with anterior osteophytes and minimal posterior osteophytes. Other disc spaces and vertebral body heights are maintained. Slight degenerative apophyseal change noted within the upper cervical spine. Vertebral bodies and posterior arches are intact. No fracture is seen. No bony central or bony neural foraminal stenosis is noted. There is mild narrowing of the central canal at C5-C6. No abnormal subluxation is seen. Impression: 1. Mild degenerative change. 2. Nothing acute is appreciated on CT cervical spine study. Diagnostic code #2 This report was dictated in [place] Standard Time I agree with preliminary report from [facility], finalized on 04/02/19, 6:46 PM Central Time
--- NOTE | 2019-04-07 06:34 | CT ---
CT thoracic spine Technique: Multiple axial sections through the thoracic spine were obtained. Reconstructed coronal and sagittal images were reviewed. Findings: Vertebral body heights are maintained. Scattered Schmorl's node deformities within the mid and lower thoracic spine are noted. Partial block vertebra is seen at T4-T5. This is a normal variant. Mild scattered degenerative apophyseal change is noted. No fracture is appreciated. No abnormal subluxation is seen. Minimal scattered endplate osteophytes are seen. Mild disc space narrowing is scattered within the thoracic spine. Impression: 1. Degenerative change as noted above. 2. No acute fracture or abnormal subluxation is seen on CT study of the thoracic spine. Diagnostic code #2 This report was dictated in [place] Standard Time I agree with preliminary report from [facility], finalized on 04/02/19, 6:49 PM Central Time
--- NOTE | 2019-04-07 06:34 | CT ---
CT chest Comparison: No prior chest imaging is available CT chest. Technique: Multiple axial sections through the chest were obtained. Intravenous contrast was utilized. Findings: Mediastinum and hilar region show no adenopathy or mass. Aorta shows no aneurysm. No pericardial thickening is seen. Moderately large hiatal hernia is noted. Slightly displaced sternal fracture is seen. This sternal fracture is displaced by approximately 5 mm. Surrounding soft tissue swelling is seen both anterior and posteriorly. Vertebral body heights are maintained. No acute vertebral body abnormality is seen. No discrete rib fracture is appreciated. Impression: 1. Displaced sternal fracture with surrounding soft tissue hematoma. 2. No other acute finding is seen on CT study of the chest. 3. Moderately large hiatal hernia. Diagnostic code #3 This report was dictated in [place] Standard Time I agree with preliminary report from [facility], finalized on 04/02/19, 6:[address] abdomen and pelvis Technique: Multiple axial sections were obtained from above the dome of the diaphragm inferiorly through the pubic symphysis. Intravenous contrast was utilized. No oral contrast has been given. Comparison: No prior abdominal or pelvic imaging is available. Findings: Moderately large hiatal hernia is again noted. Liver shows no focal abnormality. Spleen appears within normal limits. Adrenal glands show no nodule. Kidneys show symmetric contrast enhancement without hydronephrosis or mass. Pancreas appears within normal limits. Aorta shows no aneurysm. No retroperitoneal adenopathy or mesenteric abnormalities are seen. No pelvic mass or adenopathy is seen. No free fluid or inflammatory change is seen. Appendix is seen and is normal in size. Delayed images were obtained. Small amount of contrast excretion into the ureters are seen. No contrast is seen within the bladder which is most likely due to dehydration. Bone window settings were reviewed which show degenerative change within the spine. No discrete fracture is appreciated within the lumbar spine. Pelvis and hips show no discrete fracture. Impression: 1. Nothing acute is appreciated on CT study of the abdomen and pelvis. Diagnostic code #2 This report was dictated in [place] Standard Time I agree with preliminary report from [facility], finalized on 03/03/19, 6:57 PM Central Time
== END 2019-04-02 19:40 ==
LOC: JD.ED 16:51
DX: S22.20XA Unspecified fracture of sternum, initial encounter for closed fracture (principal); S01.552A Open bite of oral cavity, initial encounter; S20.312A Abrasion of left front wall of thorax, initial encounter; F10.220 Alcohol dependence with intoxication, uncomplicated; R31.21 Asymptomatic microscopic hematuria; K21.9 Gastro-esophageal reflux disease without esophagitis; E66.9 Obesity, unspecified; Y90.8 Blood alcohol level of 240 mg/100 ml or more; Z68.30 Body mass index [BMI] 30.0-30.9, adult; Z79.899 Other long term (current) drug therapy; V63.5XXA Driver of heavy transport vehicle injured in collision with car, pick-up truck or van in traffic accident, initial encounter; X58.XXXA Exposure to other specified factors, initial encounter; Y92.410 Unspecified street and highway as the place of occurrence of the external cause
CPT/HCPCS: 36415; 70450; 71260; 72125; 72128; 72131; 74177; 80053; 80306; 80320; 81001; 82553; 83605; 83690; 83735; 84484; 85007; 85027; 85610; 85730; 93005; 96360; 99285; J7030; Q9967; 93010; G0480